=== PATIENT | male | born 1960 | race Caucasian/White ===

== ENCOUNTER 2019-04-22 08:09 | Outpatient (CLI) | payer MEDICARE, SELFPAY ==
[2019-04-22 08:46] LABS: Alanine Aminotransferase 29 U/L (0-41); Albumin Level 3.9 g/dL (3.5-5.2); Alkaline Phosphatase 140 IU/L (40-130); Anion Gap 16.4 (5-19); Aspartate Amino Transferase 18 U/L (0-40); Blood Urea Nitrogen 20 mg/dL (6-20); Calcium 9.3 mg/Dl (8.6-10.0); Carbon Dioxide 26 mmol/L (22-29); Chloride 98 mmol/L (98-107); Chol HDL Ratio 6.25 mg/dL (1.0-5.00); Cholesterol 200 mg/dL (0-200); Globulin 3.6 g/dL (1.3-4.6); Glomerular Filtration Rate 47.9 mL/min (90-130); Glucose 238 mg/dL (74-109); HDL Cholesterol 32 mg/dL (60-100); Potassium 4.4 mmol/L (3.5-5.1); Sodium 136 mmol/L (136-145); Total Bilirubin 0.5 mg/dL (0.15-1.2); Total Protein 7.5 g/dL (6.6-8.7); Triglycerides 655 mg/dL (0-150)
[2019-04-22 09:39] LABS: LDL Cholesterol Direct 89 mg/dL (0-100)
[2019-04-22 09:41] LABS: Estmated Average Glucose 249; Hemoglobin A1C 10.3 % (4.0-6.0)
[2019-04-22 11:14] LABS: Albumin Level 4.2 g/dL (3.5-5.2); Anion Gap 16.4 (5-19); Blood Urea Nitrogen 23 mg/dL (6-20); Calcium 9.5 mg/Dl (8.6-10.0); Carbon Dioxide 26 mmol/L (22-29); Chloride 98 mmol/L (98-107); Glucose 227 mg/dL (74-109); Phosphorus 1.8 mg/dL (2.5-4.5); Potassium 4.4 mmol/L (3.5-5.1); Sodium 136 mmol/L (136-145)
[2019-04-22 11:21] LABS: Calcium 9.5 mg/dL (8.8-10.2); Parathyroid Hormone 122.3 pg/mL (15-65)
[2019-04-22 12:13] LABS: Basophils # 0.1 10^3/uL (0.0-0.1); Basophils % 0.8 %; Eosinophils # 0.3 10^3/uL (0.0-0.8); Eosinophils % 4.1 %; Hematocrit 43.4 % (42.0-52.0); Hemoglobin 14.2 g/dL (11.7-16.6); Lymphocytes % 27.5 %; Mean Corpuscular HGB Conc 32.7 g/dL (30.0-36.0); Mean Corpuscular Hemoglobin 26.8 pg (28.0-34.0); Mean Corpuscular Volume 81.9 fL (80-94); Mean Platelet Volume 11.7 fL (7.4-10.4); Monocytes # 0.9 10^3/uL (0.2-0.9); Monocytes % 12.2 %; Nucleated Red Blood Cells % 0 %; Platelet Count 203 10^3/cmm (130-400); Red Cell Distribution Width 13.1 % (12.1-15.1); White Blood Count 7.3 10^3/uL (4.0-10.0)
[2019-04-22 17:03] LABS: Urine Creatinine 73 mg/dL (39-259); Urine Protein Random 10 mg/dL
[2019-04-22 17:08] LABS: UPRO/UCREAT Ratio 0.14 mg/mg CR
== END 2019-04-22 08:10 | disposition home or self-care (01) ==
LOC: LAB 08:12
PROVIDERS: Family Provider Nurse Practitioner Family; PCP Nurse Practitioner Family; Visit Provider Family Medicine
DX: N18.3 Chronic kidney disease, stage 3 (moderate) (principal); E11.40 Type 2 diabetes mellitus with diabetic neuropathy, unspecified; Z79.4 Long term (current) use of insulin; I10 Essential (primary) hypertension
CPT/HCPCS: 80053; 80061; 80069; 82310; 82570; 83036; 83721; 83970; 84156; 85025

== ENCOUNTER → 2019-10-10 10:13 | Outpatient (BNVA) | payer MEDICARE, SELFPAY | PROVIDERS: Family Provider Nurse Practitioner Family; PCP Family Medicine; Visit Provider Internal Medicine Nephrology | DX: N18.3 Chronic kidney disease, stage 3 (moderate) (principal); E11.9 Type 2 diabetes mellitus without complications | CPT/HCPCS: 80053; 80061; 82044; 82310; 83036; 83721; 83970; 84100; 85025 ==

== ENCOUNTER → 2020-02-12 14:38 | Outpatient (BNVA) | payer MEDICARE, SELFPAY | PROVIDERS: Family Provider Nurse Practitioner Family; PCP Family Medicine; Visit Provider Family Medicine | DX: E11.9 Type 2 diabetes mellitus without complications (principal) | CPT/HCPCS: 80053; 80061; 83036; 83721 ==

== ENCOUNTER 2020-03-06 12:57 | Inpatient (IN) | payer MEDICARE, SELFPAY ==
[2020-03-06] VITALS (15 sets, daily range): BP systolic 119–131; BP diastolic 65–82; PULSE 100–114; RESP 14–38; TEMP 37.1; O2SAT 88–95; BMI 31.7
--- NOTE | 2020-03-06 13:11 | W.ED.COVID ---
Documented by User: RADHA Garzon 03/06/20 16:12 HPI - COVID General: Chief Complaint: COVID symptoms Stated Complaint: COVID SYMPTOMS Time Seen by Provider: 03/06/20 13:11 Source: patient Mode of arrival: ambulatory Limitations: no limitations Triage information: No fever, cough or shortness of breath. Exposure to COVID + person last 14 days History of Present Illness: HPI Narrative: 60-year-old male patient comes in today with complaints of malaise, poor appetite, and occasional cough. Patient also reports some nausea. Patient has a history of diabetes and COVID-19 exposure. Patient denies any chest pain. Patient reports just does not feel well. Patient was referred from primary health clinic for concerns of dehydration and possible COVID-19. 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 GERD (gastroesophageal reflux disease) History of MRSA infection History of renal carcinoma Hyperlipidemia Hypertension Surgical History History of nephrectomy (~08/2008) -secondary to RCC Family History Father Chronic kidney disease (CKD) father from ESRD Mother Liver disease Social History Smoking and tobacco status: never smoked Alcohol intake: never Marital status: Current gender identity: Male Physical Exam Const: COMMON NORMALS: no acute distress and patient oriented x3 GENERAL APPEARANCE: cooperative HENMT: COMMON NORMALS: normocephalic and Normal external nose present HEAD & SCALP: normal to inspection and normocephalic NOSE: Normal external nose present MOUTH: moist mucous membranes abnormal (Dry) Details: parched THROAT: posterior oropharynx normal Eye: GENERAL EYE: appearance normal, both eyes and all related structures Neck/C-Spine: COMMON NORMALS: full ROM Lymph: LYMPHATIC: no lymphadenopathy noted Chest: COMMONS NORMALS: normal inspection of the chest Resp: COMMON NORMALS: normal respiratory effort EFFORT & INSPECTION: Yes able to speak in complete sentences Cardio: COMMON NORMALS: regular rate and regular rhythm RATE: regular rate RHYTHM: regular rhythm GI: COMMON NORMALS: non-tender : COMMON NORMALS: Yes no CVA tenderness BLADDER/KIDNEY EXAM: Yes no CVA tenderness Back/Pelvis: COMMON NORMALS: no CVA tenderness Extremity: COMMON NORMALS: normal to inspection Neuro: COMMON NORMALS: patient oriented x3 and moves all extremities Psych: COMMON NORMALS: mental status grossly normal and cooperative Skin: COMMON NORMALS: no rashes or lesions noted GENERAL SKIN EXAM: no rashes or lesions noted Course ED course: 1600, reviewed with Dr. Monk, he recommended starting patient on insulin drip and admit to ICU for further treatment. [email or web address] Vital Signs: Vital signs: Vital Signs Temperature 98.4 F 03/07/20 08:00 Pulse Rate 107 H 03/07/20 08:00 Respiratory Rate 28 H 03/07/20 08:00 Blood Pressure 140/85 03/07/20 08:00 Pulse Oximetry 91 03/07/20 08:00 MDM - COVID MDM Narrative: Medical decision making narrative: 60-year-old male comes in today with malaise symptoms. Patient reports for the last 5 days he has felt unwell. Patient reports exposure to COVID-19 and was concerned he may have the virus. On exam oral mucosa is dry. Respirations were even. Lungs were clear to auscultation. Skin was warm and dry. Differential diagnosis includes but not limited to COVID-19 viral syndrome, dehydration, diabetic ketoacidosis, gastroenteritis. Laboratory values noted a blood sugar glucose of 969. I asked patient about whether or not he had been using his insulin as directed he said no he had stopped it when he started feeling bad. I asked patient what his blood sugars were running and he says he never checks it. Remainder of labs noted a sodium of 122, potassium of 5.5, serum ketones positive. I reviewed this with Dr. Monk and he recommended starting an insulin drip and admitting to the ICU for diabetic ketoacidosis. Reviewed with patient who agreed to plan. Dr. Monk went to see patient for admission to ICU for monitoring of glucose and further treatment. Lab Data: Labs: Lab Results 03/06/20 03/06/20 03/06/20 Range/Units 13:45 13:49 13:49 WBC 7.3 (4.0-10.0) 10^3/ uL RBC 5.10 (4.1-5.3) 10^6/u L Hgb 13.6 (11.7-16.6) g/dL Hct 41.6 L (42.0-52.0) % MCV 81.6 (80-94) fL MCH 26.7 L (28.0-34.0) pg MCHC 32.7 (30.0-36.0) g/dL RDW 14.3 (12.1-15.1) % Plt Count 159 (130-400) 10^3/c mm MPV 11.0 H (7.4-10.4) fL Neut % (Auto) 72.1 % Lymph % (Auto) 17.6 % [place] % (Auto) 9.7 % Eos % (Auto) 0.0 % Baso % (Auto) 0.3 % Neut # (Auto) 5.26 (1.8-7.7) 10^3/u L Lymph # (Auto) 1.3 (0.8-4.8) 10^3/u L [place] # (Auto) 0.7 (0.2-0.9) 10^3/u L Eos # (Auto) 0.0 (0.0-0.8) 10^3/u L Baso # (Auto) 0.0 (0.0-0.1) 10^3/u L Nucleated RBC % (a uto) 0 % Nucleated RBCs # 0.0 /100WBC Specimen Type Sample Site ABG pH (7.35-7.45) ABG pCO2 (35-45) mmHg ABG pO2 (80.0-100.0) mmH g ABG HCO3 (22-26) mmol/L ABG O2 Saturation ABG Base Excess (-2.0-2.0) mmol/ L Lacho Test A-a O2 Gradient (5-10) mmHg Hematocrit (42-52) % Hgb O2 Saturation (95-100) % Carboxyhemoglobin (0.4-20.1) %THgb Methemoglobin (0.4-1.5) % Total Hemoglobin (14-18) g/dL Ionized Calcium (1.1-1.4) mmol/L O2 Delivery Device FiO2 % Industrial Sociologist ID Sodium 122 L (136-145) mmol/L Potassium 5.5 H (3.5-5.1) mmol/L Chloride 85 L (98-107) mmol/L Carbon Dioxide 19 L (22-29) mmol/L Anion Gap 23.5 H (5-19) BUN 44 H (8-23) mg/dL Creatinine 2.1 H (0.7-1.2) mg/dL GFR Calculation 32.4 L (90-130) mL/min Glucose 969 H* (65-115) mg/dL POC Glucose (70-110) mg/dL Calculated Osmolal ity 314 H (285-295) mOsm/k g Calcium 8.9 (8.5-10.5) mg/dL Total Bilirubin 0.7 (0.15-1.2) mg/dL AST 21 (0-40) U/L ALT 25 (0-41) U/L Alkaline Phosphata se 177 H (40-130) IU/L C-Reactive Protein 46.7 H (0.0-4.9) mg/L Total Protein 7.4 (6.6-8.7) g/dL Albumin 4.1 (3.5-5.2) g/dL Globulin 3.3 (1.3-4.6) g/dL Urine Color (Yellow) Urine Appearance (CLEAR) Urine pH (5-7) Ur Specific Gravit y (1.005-1.030) Urine Protein (Negative) Urine Glucose (UA) (Normal) Urine Ketones (Negative) Urine Blood (Negative) Urine Nitrate (Negative) Urine Bilirubin (Negative) Urine Urobilinogen (Negative) mg/dL Ur Leukocyte Michell ase (Negative) Urine RBC (0-2) /hpf Urine WBC (0-5) /hpf Ur Squamous Epith Cells (0-5) /hpf Amorphous Sediment Urine Bacteria (NONE) /hpf Serum Ketones Positive H (Negative) SARS-CoV-2 Ag (Rap id) (Negative) 03/06/20 03/06/2003/06/20 Range/Units 13:49 13:56 16:03 WBC (4.0-10.0) 10^3/ uL RBC (4.1-5.3) 10^6/u L Hgb (11.7-16.6) g/dL Hct (42.0-52.0) % MCV (80-94) fL MCH (28.0-34.0) pg MCHC (30.0-36.0) g/dL RDW (12.1-15.1) % Plt Count (130-400) 10^3/c mm MPV (7.4-10.4) fL Neut % (Auto) % Lymph % (Auto) % [place] % (Auto) % Eos % (Auto) % Baso % (Auto) % Neut # (Auto) (1.8-7.7) 10^3/u L Lymph # (Auto) (0.8-4.8) 10^3/u L [place] # (Auto) (0.2-0.9) 10^3/u L Eos # (Auto) (0.0-0.8) 10^3/u L Baso # (Auto) (0.0-0.1) 10^3/u L Nucleated RBC % (a uto) % Nucleated RBCs # /100WBC Specimen Type Sample Site ABG pH (7.35-7.45) ABG pCO2 (35-45) mmHg ABG pO2 (80.0-100.0) mmH g ABG HCO3 (22-26) mmol/L ABG O2 Saturation ABG Base Excess (-2.0-2.0) mmol/ L Lacho Test A-a O2 Gradient (5-10) mmHg Hematocrit (42-52) % Hgb O2 Saturation (95-100) % Carboxyhemoglobin (0.4-20.1) %THgb Methemoglobin (0.4-1.5) % Total Hemoglobin (14-18) g/dL Ionized Calcium (1.1-1.4) mmol/L O2 Delivery Device FiO2 % Industrial Sociologist ID Sodium (136-145) mmol/L Potassium (3.5-5.1) mmol/L Chloride (98-107) mmol/L Carbon Dioxide (22-29) mmol/L Anion Gap (5-19) BUN (8-23) mg/dL Creatinine (0.7-1.2) mg/dL GFR Calculation (90-130) mL/min Glucose (65-115) mg/dL POC Glucose > 600 (70-110) mg/dL Calculated Osmolal ity (285-295) mOsm/k g Calcium (8.5-10.5) mg/dL Total Bilirubin (0.15-1.2) mg/dL AST (0-40) U/L ALT (0-41) U/L Alkaline Phosphata se (40-130) IU/L C-Reactive Protein (0.0-4.9) mg/L Total Protein (6.6-8.7) g/dL Albumin (3.5-5.2) g/dL Globulin (1.3-4.6) g/dL Urine Color Straw (Yellow) Urine Appearance Clear (CLEAR) Urine pH 5 (5-7) Ur Specific Gravit y 1.010 (1.005-1.030) Urine Protein Trace (Negative) Urine Glucose (UA) 4+ H (Normal) Urine Ketones 1+ H (Negative) Urine Blood Neg (Negative) Urine Nitrate Negative (Negative) Urine Bilirubin Neg (Negative) Urine Urobilinogen Norm (Negative) mg/dL Ur Leukocyte Michell ase Negative (Negative) Urine RBC None (0-2) /hpf Urine WBC None (0-5) /hpf Ur Squamous Epith Cells 0-4 H (0-5) /hpf Amorphous Sediment Not Reportable Urine Bacteria Trace (NONE) /hpf Serum Ketones (Negative) SARS-CoV-2 Ag (Rap id) Negative (Negative) 03/06/20 Range/Units 16:22 WBC (4.0-10.0) 10^3/ uL RBC (4.1-5.3) 10^6/u L Hgb (11.7-16.6) g/dL Hct (42.0-52.0) % MCV (80-94) fL MCH (28.0-34.0) pg MCHC (30.0-36.0) g/dL RDW (12.1-15.1) % Plt Count (130-400) 10^3/c mm MPV (7.4-10.4) fL Neut % (Auto) % Lymph % (Auto) % [place] % (Auto) % Eos % (Auto) % Baso % (Auto) % Neut # (Auto) (1.8-7.7) 10^3/u L Lymph # (Auto) (0.8-4.8) 10^3/u L [place] # (Auto) (0.2-0.9) 10^3/u L Eos # (Auto) (0.0-0.8) 10^3/u L Baso # (Auto) (0.0-0.1) 10^3/u L Nucleated RBC % (a uto) % Nucleated RBCs # /100WBC Specimen Type Arterial Sample Site Radial, right ABG pH 7.33 L (7.35-7.45) ABG pCO2 36.4 (35-45) mmHg ABG pO2 69.7 L (80.0-100.0) mmH g ABG HCO3 19.0 L (22-26) mmol/L ABG O2 Saturation 94.6 ABG Base Excess -6.3 L (-2.0-2.0) mmol/ L Lacho Test Pos A-a O2 Gradient 4.5 L (5-10) mmHg Hematocrit 41.6 L (42-52) % Hgb O2 Saturation 92.9 L (95-100) % Carboxyhemoglobin 1.2 (0.4-20.1) %THgb Methemoglobin 0.6 (0.4-1.5) % Total Hemoglobin 13.6 L (14-18) g/dL Ionized Calcium 1.1 (1.1-1.4) mmol/L O2 Delivery Device Room air FiO2 21.0 % Industrial Sociologist ID Jlg Sodium 130.0 L (136-145) mmol/L Potassium 4.6 (3.5-5.1) mmol/L Chloride (98-107) mmol/L Carbon Dioxide (22-29) mmol/L Anion Gap (5-19) BUN (8-23) mg/dL Creatinine (0.7-1.2) mg/dL GFR Calculation (90-130) mL/min Glucose 586.0 H (65-115) mg/dL POC Glucose (70-110) mg/dL Calculated Osmolal ity (285-295) mOsm/k g Calcium (8.5-10.5) mg/dL Total Bilirubin (0.15-1.2) mg/dL AST (0-40) U/L ALT (0-41) U/L Alkaline Phosphata se (40-130) IU/L C-Reactive Protein (0.0-4.9) mg/L Total Protein (6.6-8.7) g/dL Albumin (3.5-5.2) g/dL Globulin (1.3-4.6) g/dL Urine Color (Yellow) Urine Appearance (CLEAR) Urine pH (5-7) Ur Specific Gravit y (1.005-1.030) Urine Protein (Negative) Urine Glucose (UA) (Normal) Urine Ketones (Negative) Urine Blood (Negative) Urine Nitrate (Negative) Urine Bilirubin (Negative) Urine Urobilinogen (Negative) mg/dL Ur Leukocyte Michell ase (Negative) Urine RBC (0-2) /hpf Urine WBC (0-5) /hpf Ur Squamous Epith Cells (0-5) /hpf Amorphous Sediment Urine Bacteria (NONE) /hpf Serum Ketones (Negative) SARS-CoV-2 Ag (Rap id) (Negative) COVID Results: SARS-CoV-2 Antigen (Rapid) Negative (Negative) 03/06/20 13:49 03/06/20 SARS-CoV-2 RNA (RT-PCR) Pending 03/06/20 12:14 03/06/20 Discharge Plan Discharge Patient Disposition: Admitted As Inpatient Admit Provider: Bette Person Clinical Impression: DKA (diabetic ketoacidoses) Qualifiers: Diabetes mellitus type: type 2 Diabetes mellitus complication detail: without coma Qualified Code(s): E11.10 - Type 2 diabetes mellitus with ketoacidosis without coma Condition: Stable Discharge Diet: Advance as tolerated and Diabetic Discharge Activity: Increase activity as tolerated Coding Level of Care Code ED Superintendent Drivers for g Fwd Exam Comprehensive Documented by User: Sandip Monk DO 03/07/20 09:03 HPI - COVID General: Chief Complaint: COVID symptoms Stated Complaint: COVID SYMPTOMS Time Seen by Provider: 03/06/20 13:11 History of Present Illness: HPI Narrative: 6-year-old male. Patient initially seen by SD kei low due to need for admission. Patient has been not taking insulin for the last 4 to 5 days. Polyphagia polydipsia polyuria generalized muscle aches cough and some shortness of breath. COVID 19 common symptoms: positive non-productive cough, dyspnea, fatigue and body aches; negative fever(s), chills, productive cough, throat pain, nasal congestion, nausea, vomiting or diarrhea COVID 19 other sytmptoms: negative chest pain COVID Results: SARS-CoV-2 Antigen (Rapid) Negative (Negative) 03/06/20 13:49 03/06/20 SARS-CoV-2 RNA (RT-PCR) Pending 03/06/20 12:14 03/06/20 Review of Systems Const: Reports: body aches, fatigue and malaise; Denies: fever(s), chills or change in appetite ENMT: Denies: throat pain, ear or mastoid pain, nasal discharge or nasal congestion Card: Denies: chest pain, edema, dyspnea on exertion or orthopnea Resp: Reports: dyspnea and non-productive cough; Denies: productive cough GI: Denies: abdominal pain, nausea, vomiting, hematemesis, coffee ground emesis, diarrhea, constipation, bloating, hematochezia or melena : Denies: flank pain, dysuria, urinary frequency or urinary urgency Skin/Breast: Denies: rash or pruritus PFSH ED PFSH: Medical History 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 GERD (gastroesophageal reflux disease) History of MRSA infection History of renal carcinoma Hyperlipidemia Hypertension Surgical History History of nephrectomy (~08/2008) -secondary to RCC Family History Father Chronic kidney disease (CKD) father from ESRD Mother Liver disease Social History Smoking and tobacco status: never smoked Alcohol intake: never Marital status: Current gender identity: Male Physical Exam Const: COMMON NORMALS: no acute distress GENERAL APPEARANCE: cooperative and comfortable ORIENTATION/CONSCIOUSNESS: Yes awake, Yes oriented to person, Yes oriented to place and Yes oriented to time Neck/C-Spine: COMMON NORMALS: no JVD Resp: COMMON NORMALS: normal respiratory effort, No retractions, No use of accessory muscles and clear to auscultation bilaterally AUSCULTATION: clear to auscultation bilaterally Cardio: COMMON NORMALS: no JVD, regular rhythm and No murmurs present (Cardio) RATE: tachycardic RHYTHM: regular rhythm GI: COMMON NORMALS: Soft to palpation and No hepatosplenomegaly present AUSCULTATION: Yes normoactive bowel sounds PALPATION: Yes Soft to palpation, No Tenderness to palpation present (GI), No Guarding due to palpation present (GI) and Yes No hepatosplenomegaly present Extremity: COMMON NORMALS: normal to inspection, capillary refill normal, no clubbing, cyanosis or edema, no calf tenderness and no pedal edema Neuro: SENSORIUM/ORIENTATION: Yes oriented to person, Yes oriented to place and Yes oriented to time Skin: COMMON NORMALS: no rashes or lesions noted GENERAL SKIN EXAM: no rashes or lesions noted Course Vital Signs: Vital signs: Vital Signs Temperature 98.4 F 03/07/20 08:00 Pulse Rate 107 H 03/07/20 08:00 Respiratory Rate 28 H 03/07/20 08:00 Blood Pressure 140/85 03/07/20 08:00 Pulse Oximetry 91 03/07/20 08:00 MDM - COVID MDM Narrative: Medical decision making narrative: Patient initially seen by PA. Case signed over to myself. Exam for the most part is unremarkable other than he is a little bit tachycardic. Reviewing labs he is in DKA will admit for DKA orders written to the ICU insulin drip is been started talked Dr. Person she will be attending. Lab Data: Labs: Lab Results 03/06/20 03/06/20 03/06/20 Range/Units 13:45 13:49 13:49 WBC 7.3 (4.0-10.0) 10^3/ uL RBC 5.10 (4.1-5.3) 10^6/u L Hgb 13.6 (11.7-16.6) g/dL Hct 41.6 L (42.0-52.0) % MCV 81.6 (80-94) fL MCH 26.7 L (28.0-34.0) pg MCHC 32.7 (30.0-36.0) g/dL RDW 14.3 (12.1-15.1) % Plt Count 159 (130-400) 10^3/c mm MPV 11.0 H (7.4-10.4) fL Neut % (Auto) 72.1 % Lymph % (Auto) 17.6 % [place] % (Auto) 9.7 % Eos % (Auto) 0.0 % Baso % (Auto) 0.3 % Neut # (Auto) 5.26 (1.8-7.7) 10^3/u L Lymph # (Auto) 1.3 (0.8-4.8) 10^3/u L [place] # (Auto) 0.7 (0.2-0.9) 10^3/u L Eos # (Auto) 0.0 (0.0-0.8) 10^3/u L Baso # (Auto) 0.0 (0.0-0.1) 10^3/u L Nucleated RBC % (a uto) 0 % Nucleated RBCs # 0.0 /100WBC Specimen Type Sample Site ABG pH (7.35-7.45) ABG pCO2 (35-45) mmHg ABG pO2 (80.0-100.0) mmH g ABG HCO3 (22-26) mmol/L ABG O2 Saturation ABG Base Excess (-2.0-2.0) mmol/ L Lacho Test A-a O2 Gradient (5-10) mmHg Hematocrit (42-52) % Hgb O2 Saturation (95-100) % Carboxyhemoglobin (0.4-20.1) %THgb Methemoglobin (0.4-1.5) % Total Hemoglobin (14-18) g/dL Ionized Calcium (1.1-1.4) mmol/L O2 Delivery Device FiO2 % Industrial Sociologist ID Sodium 122 L (136-145) mmol/L Potassium 5.5 H (3.5-5.1) mmol/L Chloride 85 L (98-107) mmol/L Carbon Dioxide 19 L (22-29) mmol/L Anion Gap 23.5 H (5-19) BUN 44 H (8-23) mg/dL Creatinine 2.1 H (0.7-1.2) mg/dL GFR Calculation 32.4 L (90-130) mL/min Glucose 969 H* (65-115) mg/dL POC Glucose (70-110) mg/dL Calculated Osmolal ity 314 H (285-295) mOsm/k g Calcium 8.9 (8.5-10.5) mg/dL Total Bilirubin 0.7 (0.15-1.2) mg/dL AST 21 (0-40) U/L ALT 25 (0-41) U/L Alkaline Phosphata se 177 H (40-130) IU/L C-Reactive Protein 46.7 H (0.0-4.9) mg/L Total Protein 7.4 (6.6-8.7) g/dL Albumin 4.1 (3.5-5.2) g/dL Globulin 3.3 (1.3-4.6) g/dL Urine Color (Yellow) Urine Appearance (CLEAR) Urine pH (5-7) Ur Specific Gravit y (1.005-1.030) Urine Protein (Negative) Urine Glucose (UA) (Normal) Urine Ketones (Negative) Urine Blood (Negative) Urine Nitrate (Negative) Urine Bilirubin (Negative) Urine Urobilinogen (Negative) mg/dL Ur Leukocyte Michell ase (Negative) Urine RBC (0-2) /hpf Urine WBC (0-5) /hpf Ur Squamous Epith Cells (0-5) /hpf Amorphous Sediment Urine Bacteria (NONE) /hpf Serum Ketones Positive H (Negative) SARS-CoV-2 Ag (Rap id) (Negative) 03/06/20 03/06/20 03/06/20 Range/Units 13:49 13:56 16:03 WBC (4.0-10.0) 10^3/ uL RBC (4.1-5.3) 10^6/u L Hgb (11.7-16.6) g/dL Hct (42.0-52.0) % MCV (80-94) fL MCH (28.0-34.0) pg MCHC (30.0-36.0) g/dL RDW (12.1-15.1) % Plt Count (130-400) 10^3/c mm MPV (7.4-10.4) fL Neut % (Auto) % Lymph % (Auto) % [place] % (Auto) % Eos % (Auto) % Baso % (Auto) % Neut # (Auto) (1.8-7.7) 10^3/u L Lymph # (Auto) (0.8-4.8) 10^3/u L [place] # (Auto) (0.2-0.9) 10^3/u L Eos # (Auto) (0.0-0.8) 10^3/u L Baso # (Auto) (0.0-0.1) 10^3/u L Nucleated RBC % (a uto) % Nucleated RBCs # /100WBC Specimen Type Sample Site ABG pH (7.35-7.45) ABG pCO2 (35-45) mmHg ABG pO2 (80.0-100.0) mmH g ABG HCO3 (22-26) mmol/L ABG O2 Saturation ABG Base Excess (-2.0-2.0) mmol/ L Lacho Test A-a O2 Gradient (5-10) mmHg Hematocrit (42-52) % Hgb O2 Saturation (95-100) % Carboxyhemoglobin (0.4-20.1) %THgb Methemoglobin (0.4-1.5) % Total Hemoglobin (14-18) g/dL Ionized Calcium (1.1-1.4) mmol/L O2 Delivery Device FiO2 % Industrial Sociologist ID Sodium (136-145) mmol/L Potassium (3.5-5.1) mmol/L Chloride (98-107) mmol/L Carbon Dioxide (22-29) mmol/L Anion Gap (5-19) BUN (8-23) mg/dL Creatinine (0.7-1.2) mg/dL GFR Calculation (90-130) mL/min Glucose (65-115) mg/dL POC Glucose > 600 (70-110) mg/dL Calculated Osmolal ity (285-295) mOsm/k g Calcium (8.5-10.5) mg/dL Total Bilirubin (0.15-1.2) mg/dL AST (0-40) U/L ALT (0-41) U/L Alkaline Phosphata se (40-130) IU/L C-Reactive Protein (0.0-4.9) mg/L Total Protein (6.6-8.7) g/dL Albumin (3.5-5.2) g/dL Globulin (1.3-4.6) g/dL Urine Color Straw (Yellow) Urine Appearance Clear (CLEAR) Urine pH 5 (5-7) Ur Specific Gravit y 1.010 (1.005-1.030) Urine Protein Trace (Negative) Urine Glucose (UA) 4+ H (Normal) Urine Ketones 1+ H (Negative) Urine Blood Neg (Negative) Urine Nitrate Negative (Negative) Urine Bilirubin Neg (Negative) Urine Urobilinogen Norm (Negative) mg/dL Ur Leukocyte Michell ase Negative (Negative) Urine RBC None (0-2) /hpf Urine WBC None (0-5) /hpf Ur Squamous Epith Cells 0-4 H (0-5) /hpf Amorphous Sediment Not Reportable Urine Bacteria Trace (NONE) /hpf Serum Ketones (Negative) SARS-CoV-2 Ag (Rap id) Negative (Negative) 03/06/20 Range/Units 16:22 WBC (4.0-10.0) 10^3/ uL RBC (4.1-5.3) 10^6/u L Hgb (11.7-16.6) g/dL Hct (42.0-52.0) % MCV (80-94) fL MCH (28.0-34.0) pg MCHC (30.0-36.0) g/dL RDW (12.1-15.1) % Plt Count (130-400) 10^3/c mm MPV (7.4-10.4) fL Neut % (Auto) % Lymph % (Auto) % [place] % (Auto) % Eos % (Auto) % Baso % (Auto) % Neut # (Auto) (1.8-7.7) 10^3/u L Lymph # (Auto) (0.8-4.8) 10^3/u L [place] # (Auto) (0.2-0.9) 10^3/u L Eos # (Auto) (0.0-0.8) 10^3/u L Baso # (Auto) (0.0-0.1) 10^3/u L Nucleated RBC % (a uto) % Nucleated RBCs # /100WBC Specimen Type Arterial Sample Site Radial, right ABG pH 7.33 L (7.35-7.45) ABG pCO2 36.4 (35-45) mmHg ABG pO2 69.7 L (80.0-100.0) mmH g ABG HCO3 19.0 L (22-26) mmol/L ABG O2 Saturation 94.6 ABG Base Excess -6.3 L (-2.0-2.0) mmol/ L Lacho Test Pos A-a O2 Gradient 4.5 L (5-10) mmHg Hematocrit 41.6 L (42-52) % Hgb O2 Saturation 92.9 L (95-100) % Carboxyhemoglobin 1.2 (0.4-20.1) %THgb Methemoglobin 0.6 (0.4-1.5) % Total Hemoglobin 13.6 L (14-18) g/dL Ionized Calcium 1.1 (1.1-1.4) mmol/L O2 Delivery Device Room air FiO2 21.0 % Industrial Sociologist ID Jlg Sodium 130.0 L (136-145) mmol/L Potassium 4.6 (3.5-5.1) mmol/L Chloride (98-107) mmol/L Carbon Dioxide (22-29) mmol/L Anion Gap (5-19) BUN (8-23) mg/dL Creatinine (0.7-1.2) mg/dL GFR Calculation (90-130) mL/min Glucose 586.0 H (65-115) mg/dL POC Glucose (70-110) mg/dL Calculated Osmolal ity (285-295) mOsm/k g Calcium (8.5-10.5) mg/dL Total Bilirubin (0.15-1.2) mg/dL AST (0-40) U/L ALT (0-41) U/L Alkaline Phosphata se (40-130) IU/L C-Reactive Protein (0.0-4.9) mg/L Total Protein (6.6-8.7) g/dL Albumin (3.5-5.2) g/dL Globulin (1.3-4.6) g/dL Urine Color (Yellow) Urine Appearance (CLEAR) Urine pH (5-7) Ur Specific Gravit y (1.005-1.030) Urine Protein (Negative) Urine Glucose (UA) (Normal) Urine Ketones (Negative) Urine Blood (Negative) Urine Nitrate (Negative) Urine Bilirubin (Negative) Urine Urobilinogen (Negative) mg/dL Ur Leukocyte Michell ase (Negative) Urine RBC (0-2) /hpf Urine WBC (0-5) /hpf Ur Squamous Epith Cells (0-5) /hpf Amorphous Sediment Urine Bacteria (NONE) /hpf Serum Ketones (Negative) SARS-CoV-2 Ag (Rap id) (Negative) COVID Results: SARS-CoV-2 Antigen (Rapid) Negative (Negative) 03/06/20 13:49 03/06/20 SARS-CoV-2 RNA (RT-PCR) Pending 03/06/20 12:14 03/06/20 Discharge Plan Discharge Patient Disposition: Admitted As Inpatient Admit Provider: Bette Person Clinical Impression: DKA (diabetic ketoacidoses) Qualifiers: Diabetes mellitus type: type 2 Diabetes mellitus complication detail: without coma Qualified Code(s): E11.10 - Type 2 diabetes mellitus with ketoacidosis without coma Condition: Stable Discharge Diet: Advance as tolerated and Diabetic Discharge Activity: Increase activity as tolerated Coding Level of Care Code ED Superintendent Drivers for g Fwd Exam Comprehensive
[2020-03-06 14:06] LABS: Basophils % 0.3 %; Hematocrit 41.6 % (42.0-52.0); Hemoglobin 13.6 g/dL (11.7-16.6); Lymphocytes # 1.3 10^3/uL (0.8-4.8); Lymphocytes % 17.6 %; Mean Corpuscular HGB Conc 32.7 g/dL (30.0-36.0); Mean Corpuscular Hemoglobin 26.7 pg (28.0-34.0); Mean Corpuscular Volume 81.6 fL (80-94); Monocytes # 0.7 10^3/uL (0.2-0.9); Monocytes % 9.7 %; Neutrophils # 5.26 10^3/uL (1.8-7.7); Neutrophils % 72.1 %; Nucleated Red Blood Cells % 0 %; Platelet Count 159 10^3/cmm (130-400); Red Cell Distribution Width 14.3 % (12.1-15.1); White Blood Count 7.3 10^3/uL (4.0-10.0)
[2020-03-06 14:09] LABS: Add Urine Microscopic? YES; Bilirubin Urine Neg (Negative); Blood Urine Neg (Negative); Glucose Urine UA 4+ (Normal); Ketones Urine 1+ (Negative); Leukocyte Esterase Urine Negative (Negative); Nitrate Urine Negative (Negative); Protein Urine Trace (Negative); Urine Appearance Clear (CLEAR); Urine Color Straw (Yellow); Urobilinogen Urine Norm (Negative); pH Urine 5 (5-7)
[2020-03-06 14:16] LABS: Alanine Aminotransferase 25 U/L (0-41); Albumin Level 4.1 g/dL (3.5-5.2); Alkaline Phosphatase 177 IU/L (40-130); Anion Gap 23.5 (5-19); Aspartate Amino Transferase 21 U/L (0-40); Blood Urea Nitrogen 44 mg/dL (8-23); C Reactive Protein 46.7 mg/L (0.0-4.9); Calcium 8.9 mg/dL (8.5-10.5); Carbon Dioxide 19 mmol/L (22-29); Chloride 85 mmol/L (98-107); Globulin 3.3 g/dL (1.3-4.6); Glomerular Filtration Rate 32.4 mL/min (90-130); Potassium 5.5 mmol/L (3.5-5.1); Sodium 122 mmol/L (136-145); Total Bilirubin 0.7 mg/dL (0.15-1.2); Total Protein 7.4 g/dL (6.6-8.7)
[2020-03-06 14:18] LABS: Bacteria Urine TRACE /hpf; Squamous Epithelial Cell Urine 0-4 /hpf (0-5)
[2020-03-06 14:19] LABS: Add Urine Culture? No
[2020-03-06 14:26] LABS: Osmolality Calculated 314 mOsm/kg (285-295)
[2020-03-06 14:27] LABS: SARS Covid-2 Antigen Negative (Negative)
[2020-03-06 14:31] LABS: Glucose 969 mg/dL (65-115)
[2020-03-06] MEDS: sodium chloride 0.9% 1,000 ML 999 ML IV (14:54)
[2020-03-06 15:18] LABS: Ketone (Acetest) Serum Positive (Negative)
[2020-03-06 16:07] LABS: Glucose Point of Care > 600 mg/dL (70-110)
[2020-03-06 16:35] LABS: ABG PCO2 36.4 mmHg (35-45); ABG PH Result 7.33 (7.35-7.45); Alveolar-Arterial Oxygen Gradi 4.5 mmHg (5-10); Arterial Blood Gas Hematocrit 41.6 % (42-52); Base Excess ABG -6.3 mmol/L (-2.0-2.0); Blood Gas Allen Test Pos; Blood Gas Sample Site Radial, right; Blood Gas Sample Type Arterial; Carboxyhemoglobin 1.2 %THgb (0.4-20.1); HGB O2 Sat 92.9 % (95-100); Ionized Calcium Level - ABG 1.1 mmol/L (1.1-1.4); Methemoglobin 0.6 % (0.4-1.5); Oxygen Device ROOM AIR; Oxygen Saturation ABG 94.6; PO2 ABG 69.7 mmHg (80.0-100.0); Potassium Level - ABG 4.6 mmol/L (3.5-5.0); Total Hemoglobin 13.6 g/dL (14-18)
--- NOTE | 2020-03-06 16:50 | XRR_ITS ---
PROCEDURE INFORMATION: Exam: XR Chest, 1 View Exam date and time: 03/06/2020 4:53 PM Age: 60 years old Clinical indication: Cough; Additional info: Dyspnea/cough TECHNIQUE: Imaging protocol: XR of the chest Views: 1 view. COMPARISON: CR Chest 2 views* [id number] 06/01/2016 8:18 AM FINDINGS: Lungs: Mild nonspecific ground-glass infiltrates in both lungs. No consolidative pulmonary infiltrate noted. Pleural space: No pleural effusion. No pneumothorax. Heart/Mediastinum: No cardiomegaly. Bones/joints: Unremarkable. XR/XR chest 1V portable [id number] IMPRESSION: 1. Mild nonspecific ground-glass infiltrates in both lungs. This is new when compared to 06/01/2016. 2. No consolidative pulmonary infiltrate noted.
[2020-03-06] MEDS: insulin regular-human 250 UNIT in sodium chloride 0.9% 250 ML 15 UNIT IV (17:09)
[2020-03-06 17:50] LABS: Glucose Point of Care 515 mg/dL (70-110)
--- NOTE | 2020-03-06 17:50 | P.HP_ITS ---
Providers/Chief Complaint Admitting Physician: Bette Person MD Primary Care Provider: Soheila Castro MD Chief Complaint: COVID SYMPTOMS History of Present Illness Fredi Mccarthy is a 60 year old male with PMHx noted below presents accompanied by his from PCP clinic after having presented there with complaints of not feeling well since this past Monday (03/02). He reports poor appetite, poor oral intake particularly with respect to actual food, having alternating between w ater and soft drinks (Coke, Mountain Dew) as everything that he tries to eat tastes bland and makes his nauseous. He was recently exposed to a coworker who tested positive for COVID-19 so when his symptoms began he got suspicious that maybe he should get tested for the virus hence he presented to his primary care provider today. Since Monday he has not been taking his insulin as a result of poor oral intake. Does not typically check his blood sugar but seemed to be doing better in terms of controlling his blood sugar at some point his A1c had dropped to just above 7. Last A1c per review of medical record in February was 8.9. According to his medication reconciliation, he is on Levemir 75 units twice daily and NovoLog 30 units 3 times daily. Rapid COVID-19 test is negative, CBC is normal, sodium is 122, potassium is 5.5, it is 85, bicarb is 19, anion gap is 23.5, BUN is 44, creatinine is 2.1, blood glucose is 969, LFTs are normal, ABG shows some mild hypoxia with a pH of 7.33, urinalysis is positive for glucose and ketones, trace bacteria. Serum ketones are also positive. Chest x-ray is pending as well as blood cultures. PCR test was sent out for COVID-19 testing and is pending, will continue isolation precautions at this time. Patient's is present during my encounter in the ER, explained the detailed plan to both and they are agreeable. Insulin drip has just been started following 2 L normal saline bolus and 10 units of insulin. He will require ICU admission at this time due to need for frequent Accu-Cheks, continued insulin drip and aggressive IV fluid hydration. Review of Systems Narrative: -denies loss of taste or smell as these are chronic issues for him due to repeated nasal fractures during childhood Const: Reports: change in appetite (decreased appetite) and fatigue; Denies: fever(s) or chills Eyes: Denies: change in vision ENMT: Reports: dry mouth Card: Denies: chest pain, swelling of feet/ankles or lightheadedness Resp: Reports: non-productive cough; Denies: dyspnea or productive cough GI: Denies: abdominal pain, nausea, vomiting, hematemesis, diarrhea or hematochezia : Denies: hematuria Musc: Denies: back pain Skin/Breast: Denies: rash Neuro: Denies: numbness in extremities, weakness in extremities, difficulty walking or frequent falls Psych: Denies: anxiety Endo: Denies: polyuria or polydipsia Medications/Allergies Home Medications Medication Instructions Recorded Confirmed Last Taken Type aspirin 325 mg tablet 325 mg PO DAILY@04/30/19 03/06/20 03/05/20 History mdcuutrs-eqe-ybwxa acid 300 1 tab PO DAILY@04/30/19 03/06/20 03/06/20 History mcg-lycopene 600 mcg-lutein 300 mcg tablet insulin aspart U-100 100 unit/mL 30 unit SUBCUT TID #15 ml 12/20/19 03/06/20 Unknown Rx (3 mL) subcutaneous pen atorvastatin 80 mg PO DAILY@03/06/20 03/06/20 03/05/20 History fenofibrate 160 mg PO DAILY@03/06/20 03/06/20 03/05/20 History furosemide 20 mg PO DAILY@03/06/20 03/06/20 03/06/20 History insulin detemir U-100 [Levemir 75 unit SUBCUT BID@03/06/20 03/06/20 Unknown History U-100 Insulin] lisinopril 10 mg PO EVERY OTHER DAY@03/06/20 03/06/20 03/06/20 History omeprazole 20 mg PO DAILY@03/06/20 03/06/20 03/06/20 History Allergies Allergy/AdvReac Type Severity Reaction Status Date / Time Sulfa (Sulfonamide Allergy Unknown RASH Verified 06/05/19 10:40 Antibiotics) cephalexin Allergy Unknown Verified 06/05/19 10:40 clindamycin Allergy Unknown Verified 06/05/19 10:40 PFSH Acute PFSH: Medical History (Updated 03/06/20 @ 18:13 by Bette Person MD) 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 GERD (gastroesophageal reflux disease) History of MRSA infection History of renal carcinoma Hyperlipidemia Hypertension Surgical History (Updated 03/06/20 @ 18:02 by Bette Person MD) History of nephrectomy (~08/2008) -secondary to RCC Family History (Updated 03/06/20 @ 18:03 by Bette Person MD) Father Chronic kidney disease (CKD) father from ESRD Mother Liver disease Social History Smoking and tobacco status: never smoked Alcohol intake: never Marital status: Current gender identity: Male Vitals/I&O/Wt Last Vital Signs Temp 98.8 F 03/06/20 13:06 Pulse 114 H 03/06/20 13:06 Resp 18 03/06/20 13:06 BP 131/74 03/06/20 13:06 Pulse Ox 95 03/06/20 14:00 Weight last 48 hrs Weight 97.522 kg Physical Exam Const: COMMON NORMALS: no acute distress, patient oriented x3 and alert GENERAL APPEARANCE: cooperative and comfortable ORIENTATION/CONSCIOUSNESS: Yes awake OTHER: -looks younger than stated age HENMT: COMMON NORMALS: normocephalic, atraumatic, hearing grossly normal bilaterally and moist oral mucous membranes HEAD & SCALP: normocephalic and atraumatic Eye: COMMON NORMALS: Equal, round and reactive pupils present, EOMs intact bilaterally and conjunctivae normal CONJUNCTIVA: Yes conjunctivae normal PUPIL: Yes Equal, round and reactive pupils present Neck/C-Spine: COMMON NORMALS: full ROM GENERAL: Yes normal visual inspection and Yes trachea midline Resp: COMMON NORMALS: normal respiratory effort, No retractions, No use of accessory muscles and clear to auscultation bilaterally EFFORT & INSPECTION: Yes able to speak in complete sentences, Yes symmetric chest movement and No tachypneic AUSCULTATION: clear to auscultation bilaterally OTHER: -on RA Cardio: COMMON NORMALS: regular rhythm, S1 normal heart sound present, S2 normal heart sound present and No murmurs present (Cardio) RATE: tachycardic RHYTHM: regular rhythm HEART SOUNDS: S1 normal heart sound present and S2 normal heart sound present GI: COMMON NORMALS: Normal to inspection, nondistended, normoactive bowel sounds present, Soft to palpation and non-tender INSPECTION: Yes central obesity PALPATION: Yes Soft to palpation Extremity: COMMON NORMALS: normal to inspection, full ROM and no clubbing, cyanosis or edema; negative for no pedal edema Neuro: COMMON NORMALS: patient oriented x3, moves all extremities, no focal motor deficits and no sensory deficits noted Psych: COMMON NORMALS: mental status grossly normal, Normal thought process present, cooperative, normal affect and speech normal SPEECH: Yes normal speech THOUGHT PROCESS: Normal thought process present Skin: COMMON NORMALS: no rashes or lesions noted, no jaundice, no petechiae and no mottling GENERAL SKIN EXAM: no rashes or lesions noted Data : 03/06/20 13:49 03/06/20 13:49 A&P Assessment and plan (1) DKA (diabetic ketoacidoses): -Noted to have significant hyperglycemia with blood glucose greater than 900, ketonuria, glucosuria, positive serum ketones, elevated anion gap -Received 10 units of regular insulin and has been started on insulin drip -Accu-Cheks q. hourly -Aggressive IV fluid hydration, so far has received 2 L normal saline bolus, will continue NS @ 150 mL/hr -serial BMPs to monitor AG; once closed, will wean off insulin drip -hypoglycemia precautions particularly as oral intake as been poor -once BG consistently <250, will switch fluids to D5 with KCl to prevent hypoglycemia -noted pseudohyponatremia given significant hyperglycemia -noted K-5.5; anticipate normalization with insulin drip -last A1c-8.9 (02/2020) -no signs of infection at this time; UA with trace bacteria but asymptomatic; CXR and blood cx ordered; afebrile, no leukocytosis Status: Acute Qualifiers: Diabetes mellitus complication detail: without coma Diabetes mellitus type: type 2 Qualified Code(s): E11.10 - Type 2 diabetes mellitus with ketoacidosis without coma (2) Exposure to COVID-19 virus: -recent exposure to coworker who tested positive for COVID-19 -rapid test negative, PCR pending -isolation precautions Status: Acute (3) Hypertension: -monitor vital signs -resume oral antihypertensives -hold lasix, ACEi due to renal function and need for appropriate hydration Status: Chronic Qualifiers: Hypertension type: essential hypertension Qualified Code(s): I10 - Es sential (primary) hypertension (4) CKD stage 3 due to type 2 diabetes mellitus: -baseline Cr seems to be around 1.7-2.0; CKD stage 3b -continue to monitor renal function, avoid nephrotoxins, renally dose meds -monitor urine output Status: Chronic (5) GERD (gastroesophageal reflux disease): -resume PPI Status: Chronic Qualifiers: Esophagitis presence: esophagitis presence not specified Qualified Code(s): K21.9 - Gastro-esophageal reflux disease without esophagitis (6) Hyperlipidemia: -resume statin, fenofibrate -had recent lipid panel showing significant hypertriglyceridemia Status: Acute Qualifiers: Hyperlipidemia type: unspecified Qualified Code(s): E78.5 - Hyperlipidemia, unspecified Additional A&P Information -Obesity: BMI-32 kg/m2 -remote hx of RCC s/p L nephrectomy -CLD for now, advance as tolerated -GI ppx with PPI -DVT ppx with heparin -admit to ICU due to need for insulin drip, frequent accucheks Attestations Medical Necessity Statement*: Fredi Mccarthy's hospital stay will require greater than 2 midnights for management of DKA in type II DM, requiring frequent accucheks, insulin drip, aggressive IVF hydration. Time Spent in Patient Care: Greater than 35 minutes (>than 50% of time spent in counselling and/or direct pt care on unit) . 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
[2020-03-06] MEDS: sodium chloride 0.9% 1,000 ML 150 ML IV (18:30)
[2020-03-06 19:10] LABS: Glucose Point of Care 319 mg/dL (70-110)
[2020-03-06] MEDS: heparin 5,000 unit/mL INJ 1 mL 5000 UNIT SUBCUT (19:17)
--- NOTE | 2020-03-06 19:28 | PC.NURSE ---
assessment AO x4, speech clear, answers questions appropriately, denied SOB regular unlabored RR RA, lungs clear but diminished CAMACHO, decreased insulin drip to 7.8 ml/hr per protocol
[2020-03-06] MEDS: atorvastatin 40 mg Tablet 80 MG PO (20:14)
[2020-03-06 20:34] LABS: Glucose Point of Care 234 mg/dL (70-110)
[2020-03-06 21:15] LABS: Glucose Point of Care 213 mg/dL (70-110)
[2020-03-06 22:01] LABS: Glucose Point of Care 169 mg/dL (70-110)
[2020-03-06] MEDS: D5-NS 0.45% + KCL 20 mEq 20 MEQ/1,000 ML BAG 150 MEQ IV (22:14)
[2020-03-06 22:54] LABS: Blood Urea Nitrogen 35 mg/dL (8-23); Calcium 8.7 mg/dL (8.5-10.5); Carbon Dioxide 24 mmol/L (22-29); Chloride 101 mmol/L (98-107); Glomerular Filtration Rate 38.7 mL/min (90-130); Glucose 171 mg/dL (65-115); Osmolality Calculated 294 mOsm/kg (285-295); Sodium 136 mmol/L (136-145)
[2020-03-06 23:06] LABS: Anion Gap 16.5 (5-19); Potassium 5.5 mmol/L (3.5-5.1)
--- NOTE | 2020-03-06 23:12 | PC.NURSE ---
N.O. 2200 Dr. Haley notified of glucose 169, T.O. given to start D5 1/2 NS [address] Haley notified of Anion gap 16.5, T.O. given to feed pt, give 60 units Levemir now, after 2 hrs stop insulin drip
[2020-03-07] VITALS (26 sets, daily range): BP systolic 105–171; BP diastolic 65–114; PULSE 83–107; RESP 6–28; TEMP 36.8–37.2; O2SAT 86–97
[2020-03-07 00:09] LABS: Glucose Point of Care 180 mg/dL (70-110)
[2020-03-07 00:09] LABS: Glucose Point of Care 200 mg/dL (70-110)
--- NOTE | 2020-03-07 00:54 | PC.NURSE ---
N.O. Dr. Haley notified of pt eating 1/2 a sandwhich, order given to continue D5 at 75 ml /Hr
--- NOTE | 2020-03-07 01:01 | PC.NURSE ---
Insulin drip stopped per T.O. from Dr. Haley, D5 continuing at 75 ml/hr
--- NOTE | 2020-03-07 02:25 | PC.NURSE ---
Placed on 2L NC for O2 sat high 80's, O2 WNL at this time
--- NOTE | 2020-03-07 03:42 | PC.NURSE ---
N.O. stop D5 Dr. Haley notified that glucose is 288, V.O. given to stop D5 1/2 NS
[2020-03-07 03:51] LABS: Basophils % 0.2 %; Eosinophils # 0.1 10^3/uL (0.0-0.8); Eosinophils % 1.1 %; Hematocrit 34.1 % (42.0-52.0); Hemoglobin 11.5 g/dL (11.7-16.6); Lymphocytes # 2.1 10^3/uL (0.8-4.8); Lymphocytes % 31.4 %; Mean Corpuscular HGB Conc 33.7 g/dL (30.0-36.0); Mean Corpuscular Hemoglobin 26.6 pg (28.0-34.0); Mean Corpuscular Volume 78.8 fL (80-94); Mean Platelet Volume 11.3 fL (7.4-10.4); Monocytes # 0.7 10^3/uL (0.2-0.9); Monocytes % 10.2 %; Neutrophils # 3.76 10^3/uL (1.8-7.7); Neutrophils % 56.8 %; Nucleated Red Blood Cells % 0 %; Platelet Count 141 10^3/cmm (130-400); Red Blood Count 4.33 10^6/uL (4.1-5.3); Red Cell Distribution Width 13.6 % (12.1-15.1); White Blood Count 6.6 10^3/uL (4.0-10.0)
[2020-03-07 04:24] LABS: Glucose Point of Care 288 mg/dL (70-110)
[2020-03-07 04:26] LABS: Alanine Aminotransferase 20 U/L (0-41); Albumin Level 3.1 g/dL (3.5-5.2); Alkaline Phosphatase 132 IU/L (40-130); Aspartate Amino Transferase 19 U/L (0-40); Blood Urea Nitrogen 31 mg/dL (8-23); Calcium 8.1 mg/dL (8.5-10.5); Carbon Dioxide 21 mmol/L (22-29); Chloride 101 mmol/L (98-107); Globulin 2.9 g/dL (1.3-4.6); Glomerular Filtration Rate 44.3 mL/min (90-130); Glucose 292 mg/dL (65-115); Osmolality Calculated 291 mOsm/kg (285-295); Sodium 132 mmol/L (136-145); Total Bilirubin 0.5 mg/dL (0.15-1.2)
[2020-03-07 04:46] LABS: Creatinine Clr Calc Pharmacy 56.5478
[2020-03-07 04:48] LABS: Anion Gap 14.6 (5-19); Potassium 4.6 mmol/L (3.5-5.1)
[2020-03-07] MEDS: heparin 5,000 unit/mL INJ 1 mL 5000 UNIT SUBCUT ×2 (05:32→17:39)
[2020-03-07 05:42] LABS: Glucose Point of Care 255 mg/dL (70-110)
[2020-03-07 07:38] LABS: Anion Gap 13.4 (5-19); Blood Urea Nitrogen 28 mg/dL (8-23); Calcium 8.4 mg/dL (8.5-10.5); Carbon Dioxide 23 mmol/L (22-29); Chloride 101 mmol/L (98-107); Glomerular Filtration Rate 44.3 mL/min (90-130); Glucose 275 mg/dL (65-115); Osmolality Calculated 291 mOsm/kg (285-295); Potassium 4.4 mmol/L (3.5-5.1); Sodium 133 mmol/L (136-145)
[2020-03-07 07:52] LABS: Glucose Point of Care 227 mg/dL (70-110)
[2020-03-07] MEDS: pantoprazole DR 40 mg Tablet PO (07:53)
[2020-03-07] MEDS: aspirin 325 mg Tablet PO (07:53)
--- NOTE | 2020-03-07 08:12 | P.PN_ITS ---
Subjective Subjective: Interval history: AG closed and weaned off insulin drip overnight, electrolytes and hyperglycemia improved. Tolerating oral intake so advance diet this AM. Received 60 units of levemir around midnight. Documented urine output of 150 mL, not sure this is accurate as patient was on aggressive IVF. Noted to desaturate, so on 2 L NC now, remains on isolation precautions pending COVID-19 PCR test results. Medications: Reviewed: Yes Medication Review Details: Active Medications Generic Name Dose Route Start Last Admin Trade Name Freq PRN Reason Stop Dose Admin Acetaminophen 650 mg 03/06/20 18:22 Acetaminophen 32 5 Mg Tablet PO Q6H PRN MILD PAIN Aspirin 325 mg 03/07/20 09:00 03/07/20 07:53 Aspirin 325 Mg T ablet PO 325 mg DAILY LOPEZ Administration Atorvastatin Calci um 80 mg 03/06/20 21:00 03/06/20 20:14 Atorvastatin 40 Mg Tablet PO 80 mg BEDTIME LOPEZ Administration Dextrose 25 ml 03/06/20 16:07 Dextrose 50% Syr brenton 50 Ml IVP ONCE PRN hypoglycemia prot ocol Protocol Dextrose 50 ml 03/06/20 16:07 Dextrose 50% Syr brenton 50 Ml IVP PRN PRN hypoglycemia prot ocol Protocol Dextrose 25 ml 03/06/20 23:57 Dextrose 50% Syr brenton 50 Ml IVP ONCE PRN hypoglycemia prot ocol Protocol Glucagon 1 mg 03/06/20 23:57 Glucagon 1 Mg/Ml Inj 1 Ml IM ONCE PRN Adult Acute Hypog lycemia Prot. Protocol Heparin Sodium (Be ef Lung) 5,000 unit 03/06/20 18:30 03/07/20 05:32 Heparin 5,000 Un it/Ml Inj 1 Ml SUBCUT 5,000 unit Q12H LOPEZ Administration Dextrose 500 mls @ 100 mls /hr 03/06/20 23:57 D5w IV ONCE PRN Adult Acute Hypog lycemia Prot Protocol Potassium Chloride /Dextrose/Sod Cl 20 meq in 1,000 m ls @ 125 mls/hr 03/07/20 08:00 D5-Ns 0.45% + Chon l 20 Meq IV .Q8H LOPEZ Insulin Aspart 0 unit 03/07/20 08:00 03/07/20 07:53 Insulin Aspart 1 00 Unit/1 Ml SUBCUT 6 unit WM&BEDTIME LOPEZ Administration Protocol Insulin Aspart 10 unit 03/07/20 12:00 Insulin Aspart 1 00 Unit/1 Ml SUBCUT TIDWM [facility] Insulin Detemir 40 unit 03/07/20 21:00 Insulin Detemir 100 Units/1 Ml SUBCUT BEDTIME [facility] Morphine Sulfate 2 mg 03/06/20 18:22 Morphine 4 Mg/Ml Sdv 1 Ml IVP Q4H PRN SEVERE PAIN Non-Formulary Medi cation 160 mg 03/06/20 21:00 Fenofibrate PO BEDTIME [facility] Ondansetron HCl 4 mg 03/06/20 18:22 Ondansetron 2 Mg /Ml Sdv 2 Ml IVP Q6H PRN NAUSEA AND VOMITI NG Pantoprazole Sodiu m 40 mg 03/07/20 08:00 03/07/20 07:[address] 40 Mg Tablet PO 40 mg DAILY@0800 [facility] Administration Sulfa (Sulfonamide Antibiotics) Allergy (Unknown, Verified 06/05/19 10:40) RASH cephalexin Allergy (Verified 06/05/19 10:40) Unknown clindamycin Allergy (Verified 06/05/19 10:40) Unknown Vitals/I&O/Wt Last Vital Signs Temp 98.4 F 03/07/20 08:00 Pulse 107 H 03/07/20 08:00 Resp 28 H 03/07/20 08:00 BP 140/85 03/07/20 08:00 Pulse Ox 91 03/07/20 08:00 03/06/20 03/07/20 03/07/20 22:59 06:59 14:59 Intake Total 1611.033 / 1611.033 Output Total 150 / 150 Balance 1611.033 / 1611.033 -150 / 1461.033 Weight last 48 hrs Weight 93.44 kg Weight 97.522 kg Physical Exam Const: COMMON NORMALS: no acute distress, patient oriented x3 and alert GENERAL APPEARANCE: cooperative and comfortable ORIENTATION/CONSCIOUSNESS: Yes awake OTHER: -looks younger than stated age HENMT: COMMON NORMALS: normocephalic, atraumatic, hearing grossly normal bilaterally and moist oral mucous membranes HEAD & SCALP: normocephalic and atraumatic Eye: COMMON NORMALS: Equal, round and reactive pupils present, EOMs intact bilaterally and conjunctivae normal CONJUNCTIVA: Yes conjunctivae normal PUPIL: Yes Equal, round and reactive pupils present Neck/C-Spine: COMMON NORMALS: full ROM GENERAL: Yes normal visual inspection and Yes trachea midline Resp: COMMON NORMALS: normal respiratory effort, No retractions, No use of accessory muscles and clear to auscultation bilaterally EFFORT & INSPECTION: Yes able to speak in complete sentences, Yes symmetric chest movement and No tachypneic AUSCULTATION: clear to auscultation bilaterally OTHER: -on 2 L NC Cardio: COMMON NORMALS: regular rhythm, S1 normal heart sound present, S2 normal heart sound present and No murmurs present (Cardio) RATE: tachycardic RHYTHM: regular rhythm HEART SOUNDS: S1 normal heart sound present and S2 normal heart sound present GI: COMMON NORMALS: Normal to inspection, nondistended, normoactive bowel sounds present, Soft to palpation and non-tender INSPECTION: Yes central obesity PALPATION: Yes Soft to palpation Extremity: COMMON NORMALS: normal to inspection, full ROM and no clubbing, cyanosis or edema; negative for no pedal edema Neuro: COMMON NORMALS: patient oriented x3, moves all extremities, no focal motor deficits and no sensory deficits noted SENSORIUM/ORIENTATION: Yes alert Psych: COMMON NORMALS: mental status grossly normal, Normal thought process present, cooperative, normal affect and speech normal SPEECH: Yes normal speech THOUGHT PROCESS: Normal thought process present Skin: COMMON NORMALS: no rashes or lesions noted, no jaundice, no petechiae a nd no mottling GENERAL SKIN EXAM: no rashes or lesions noted Data : 03/07/20 03:24 03/07/20 06:44 Micro: Microbiology 03/06/20 20:50 Blood Culture - Preliminary Blood SPECIMEN COLLECTED 03/06/20 20:50 Blood Culture - Preliminary Blood SPECIMEN COLLECTED A&P Assessment and plan (1) DKA (diabetic ketoacidoses): -Noted to have significant hyperglycemia with blood glucose greater than 900, ketonuria, glucosuria, positive serum ketones, elevated anion gap -AG closed and weaned off insulin drip -Accu-Cheks AC and qhs -Aggressive IV fluid hydration, wean with improved oral tolerance -hypoglycemia precautions particularly as oral intake as been poor -hyperglycemia improved, with BG <250 -noted pseudohyponatremia given significant hyperglycemia; improved -hyperkalemia resolved with insulin drip -last A1c-8.9 (02/2020), [id number] -no signs of infection at this time; UA with trace bacteria but asymptomatic; CXR-mild bilateral ground-glass infiltrates, no jess consolidation, blood cx pending; afebrile, no leukocytosis. Now requiring some supplemental oxygen support Status: Acute Qualifiers: Diabetes mellitus complication detail: without coma Diabetes mellitus type: type 2 Qualified Code(s): E11.10 - Type 2 diabetes mellitus with ketoacidosis without coma (2) Exposure to COVID-19 virus: -recent exposure to coworker who tested positive for COVID-19 -rapid test negative, PCR pending -isolation precautions Status: Acute (3) Hypertension: -continue to monitor vital signs -continue oral antihypertensives -resume lasix, ACEi, renal function at baseline Status: Chronic Qualifiers: Hypertension type: essential hypertension Qualified Code(s): I10 - Essential (primary) hypertension (4) CKD stage 3 due to type 2 diabetes mellitus: -baseline Cr seems to be around 1.7-2.0; CKD stage 3b -continue to monitor renal function, avoid nephrotoxins, renally dose meds -continue to monitor urine output Status: Chronic (5) GERD (gastroesophageal reflux disease): -continue PPI Status: Chronic Qualifiers: Esophagitis presence: esophagitis presence not specified Qualified Code(s): K21.9 - Gastro-esophageal reflux disease without esophagitis (6) Hyperlipidemia: -continue statin, fenofibrate -had recent lipid panel showing significant hypertriglyceridemia (TGs > 700) Status: Acute Qualifiers: Hyperlipidemia type: unspecified Qualified Code(s): E78.5 - Hyperlipidemia, unspecified Additional A&P Information -Obesity: BMI-30 kg/m2 -remote hx of RCC s/p L nephrectomy -advance to consistent carb diet -GI ppx with PPI -DVT ppx with heparin Attestations Medical Necessity Statement*: Patient requires hospitalization for continued management of DKA in type II DM, now transitioned to SC insulin with need for continued monitoring of blood glucose, pending improved oral tolerance. Time Spent in Patient Care: 16 - 35 minutes (>than 50% of time spent in counselling and/or direct pt care on unit) . Coding Level of Care Code Acute Preparation Plant Repairer for g Fwd Exam Comprehensive Diagnoses DKA (diabetic ketoacidoses) E11.10 Diabetes mellitus complication detail: without coma Diabetes mellitus type: type 2 Exposure to COVID-19 virus Z20.828 Hypertension I10 Hypertension type: essential hypertension CKD stage 3 due to type 2 diabetes mellitus E11.22; N18.30 GERD (gastroesophageal reflux disease) K21.9 Esophagitis presence: esophagitis presence not specified Hyperlipidemia E78.5 Hyperlipidemia type: unspecified
[2020-03-07] MEDS: D5-NS 0.45% + KCL 20 mEq 20 MEQ/1,000 ML BAG 125 MEQ IV ×2 (08:39→17:08)
[2020-03-07] MEDS: FUROsemide 20 mg Tablet PO (08:39)
--- NOTE | 2020-03-07 10:27 | PC.NURSE ---
Rounding upon rounding at 0730 patient stating that he is ready to be sent home. nurse educated on waiting for a few more labs. vital signs WNL. patient refused to wear oxygen at this time. no complaints.
[2020-03-07 11:43] LABS: Glucose Point of Care 337 mg/dL (70-110)
--- NOTE | 2020-03-07 13:23 | PC.NURSE ---
Call to physician call to clarify if is wanting the sliding scale dose of insulin given at 1200 or the scheduled 10units. nurse informed to give the scheduled 10 units.
--- NOTE | 2020-03-07 15:06 | PC.NURSE ---
attempted to eat patient attempted to eat lunch brought in by nurse. patient was able to eat a few bites of hamburger before spitting up food. patient informed nurse that the process of chewing made me feel nauseous. educated on medication to help prevent nausea. patient refused medication at this time. 2 sugar free puddings brought to patient, patient was able to eat and keep down. notified.
[2020-03-07 17:23] LABS: Glucose Point of Care 278 mg/dL (70-110)
[2020-03-07 20:42] LABS: Glucose Point of Care 258 mg/dL (70-110)
[2020-03-07] MEDS: atorvastatin 40 mg Tablet 80 MG PO (20:45)
[2020-03-08] VITALS (11 sets, daily range): BP systolic 111–147; BP diastolic 64–98; PULSE 93–99; RESP 17–19; TEMP 36.8–37.2; O2SAT 91–97
--- NOTE | 2020-03-08 03:59 | PC.NURSE ---
ASSUMING CARE Patient sitting up in bed on phone. Family brought push pops and cough drops for patient brought by a coworker. Patient on room air, alert and oriented. Denies any pain at this time.
--- NOTE | 2020-03-08 04:30 | PC.NURSE ---
COVID POSITIVE Lab called to confirm COVID test results since patient was testing at his primary care physicians office. Lab reported a positive result. Physician notified and patient being transferred to med/surg COVID unit.
--- NOTE | 2020-03-08 04:36 | PC.NURSE ---
TRANSFER Report called to [facility] on Med/Surg. Patient taken to room 257 in a wheel chair with all belongings, patient sitting on side of bed in his room with call light next to him.
[2020-03-08 04:45] LABS: Basophils % 0.3 %; Eosinophils # 0.2 10^3/uL (0.0-0.8); Eosinophils % 3.2 %; Hematocrit 40.3 % (42.0-52.0); Hemoglobin 13.4 g/dL (11.7-16.6); Lymphocytes # 2.1 10^3/uL (0.8-4.8); Lymphocytes % 29.4 %; Mean Corpuscular HGB Conc 33.3 g/dL (30.0-36.0); Mean Corpuscular Hemoglobin 26.5 pg (28.0-34.0); Mean Corpuscular Volume 79.8 fL (80-94); Mean Platelet Volume 10.6 fL (7.4-10.4); Monocytes # 0.6 10^3/uL (0.2-0.9); Neutrophils # 4.09 10^3/uL (1.8-7.7); Neutrophils % 58.7 %; Nucleated Red Blood Cells % 0 %; Platelet Count 178 10^3/cmm (130-400); Red Blood Count 5.05 10^6/uL (4.1-5.3); Red Cell Distribution Width 13.5 % (12.1-15.1)
[2020-03-08 05:21] LABS: Anion Gap 15.3 (5-19); Blood Urea Nitrogen 22 mg/dL (8-23); Calcium 8.7 mg/dL (8.5-10.5); Carbon Dioxide 23 mmol/L (22-29); Chloride 100 mmol/L (98-107); Glomerular Filtration Rate 44.3 mL/min (90-130); Glucose 186 mg/dL (65-115); Osmolality Calculated 286 mOsm/kg (285-295); Potassium 4.3 mmol/L (3.5-5.1); Sodium 134 mmol/L (136-145)
[2020-03-08] MEDS: heparin 5,000 unit/mL INJ 1 mL 5000 UNIT SUBCUT (05:31)
[2020-03-08 06:49] LABS: Glucose Point of Care 209 mg/dL (70-110)
--- NOTE | 2020-03-08 08:25 | PM.DCS ---
Discharge Providers Date of Admission: 03/06/20 16:51 Date of Discharge: March 08, 2020 Attending Provider at Admission: Bette Person MD Attending Provider at Discharge: Bette Person MD Consults: None Primary Care Provider: Soheila Castro MD Diagnoses at Discharge Discharge Diagnosis (1) DKA (diabetic ketoacidoses): Status: Acute Permanent problem details: -Noted to have significant hyperglycemia with blood glucose greater than 900, ketonuria, glucosuria, positive serum ketones, elevated anion gap -AG closed and weaned off insulin drip -hyperglycemia improved, with BG <250 -noted pseudohyponatremia given significant hyperglycemia; improved -hyperkalemia resolved with insulin drip -last A1c-8.9 (02/2020), [id number] -likely triggered by COVID-19 infection; UA with trace bacteria but asymptomatic; CXR-mild bilateral ground-glass infiltrates, no jess consolidation, blood cx prelim negative; afebrile, no leukocytosis. Qualifiers: Diabetes mellitus complication detail: without coma Diabetes mellitus type: type 2 Qualified Code(s): E11.10 - Type 2 diabetes mellitus with ketoacidosis without coma (2) Exposure to COVID-19 virus: Status: Acute Permanent problem details: -recent exposure to coworker who tested positive for COVID-19 -rapid test negative, PCR positive -isolation precautions -home oxygen evaluation done prior to d/c; does not qualify for this (3) Hypertension: Status: Chronic Permanent problem details: -continue oral antihypertensives Qualifiers: Hypertension type: essential hypertension Qualified Code(s): I10 - Essential (primary) hypertension (4) CKD stage 3 due to type 2 diabetes mellitus: Status: Chronic Permanent problem details: -baseline Cr seems to be around 1.7-2.0; CKD stage 3b (5) GERD (gastroesophageal reflux disease): Status: Chronic Permanent problem details: -continue PPI Qualifiers: Esophagitis presence: esophagitis presence not specified Qualified Code(s): K21.9 - Gastro-esophageal reflux disease without esophagitis (6) Hyperlipidemia: Status: Acute Permanent problem details: -continue statin, fenofibrate Qualifiers: Hyperlipidemia type: unspecified Qualified Code(s): E78.5 - Hyperlipidemia, unspecified Other Information Additional DC diagnoses/information: -Obesity: BMI-30 kg/m2 -remote hx of RCC s/p L nephrectomy Reason for Visit Reason for Visit: COVID SYMPTOMS Hospital Course Hospital Course Patient was initially admitted to ICU secondary to DKA and need for insulin drip, aggressive IV fluid hydration and frequent Accu-Cheks. Was found to be significantly hyperglycemic with blood glucose over 900, glucosuria, ketonemia and ketonuria. Anion gap quickly closed, electrolytes corrected and hypoglycemia improved at which point he was weaned off insulin drip and started on subcutaneous insulin. Oral intake begun to improve as well and though he is not quite at his baseline in terms of his appetite he is able to tolerate oral intake at this time. Glucose has consistently been between 200-300, most recent A1c done last month was 8.9 with estimated blood glucose at 219. I have adjusted his insulin regimen in part due to his limited oral intake and not having had quite as high an insulin requirement while hospitalized. He had recently been exposed to a coworker who tested positive for COVID-19, rapid testing was negative but PCR testing has come back positive. He required supplemental oxygen support for very brief period of time, does not use supplemental oxygen at baseline, otherwise respiratory symptoms have been limited, he has consistently been hemodynamically stable and afebrile. He will require self-isolation for at least 10 to 14 days since testing particularly as he is considered immunocompromised given hx of IDDM type II. He is to continue to monitor for shortness of breath, hypoxia, fever, inability to tolerate oral intake and to seek medical attention immediately should any of these symptoms persist. While here, he has been on isolation precautions. He will require appropriate follow up with his primary care provider. Once COVID-19 test resulted he was moved to the medical surgical floor COVID-19 unit. Physical Exam Const: COMMON NORMALS: no acute distress, patient oriented x3 and alert GENERAL APPEARANCE: cooperative and comfortable ORIENTATION/CONSCIOUSNESS: Yes awake OTHER: -looks younger than stated age HENMT: COMMON NORMALS: normocephalic, atraumatic, hearing grossly normal bilaterally and moist oral mucous membranes HEAD & SCALP: normocephalic and atraumatic Eye: COMMON NORMALS: Equal, round and reactive pupils present, EOMs intact bilaterally and conjunctivae normal CONJUNCTIVA: Yes conjunctivae normal PUPIL: Yes Equal, round and reactive pupils present Neck/C-Spine: COMMON NORMALS: full ROM GENERAL: Yes normal visual inspection and Yes trachea midline Resp: COMMON NORMALS: normal respiratory effort, No retractions, No use of accessory muscles and clear to auscultation bilaterally EFFORT & INSPECTION: Yes able to speak in complete sentences, Yes symmetric chest movement and No tachypneic AUSCULTATION: clear to auscultation bilaterally OTHER: -on RA Cardio: COMMON NORMALS: regular rhythm, S1 normal heart sound present, S2 normal heart sound present and No murmurs present (Cardio) RATE: tachycardic RHYTHM: regular rhythm HEART SOUNDS: S1 normal heart sound present and S2 normal heart sound present GI: COMMON NORMALS: Normal to inspection, nondistended, normoactive bowel sounds present, Soft to palpation and non-tender INSPECTION: Yes central obesity PALPATION: Yes Soft to palpation Extremity: COMMON NORMALS: normal to inspection, full ROM and no clubbing, cyanosis or edema; negative for no pedal edema Neuro: COMMON NORMALS: patient oriented x3, moves all extremities, no focal motor deficits and no sensory deficits noted SENSORIUM/ORIENTATION: Yes alert Psych: COMMON NORMALS: mental status grossly normal, Normal thought process present, cooperative, normal affect and speech normal SPEECH: Yes normal speech THOUGHT PROCESS: Normal thought process present Skin: COMMON NORMALS: no rashes or lesions noted, no jaundice, no petechiae and no mottling GENERAL SKIN EXAM: no rashes or lesions noted Discharge Data Data Completed and Pending: Completed Studies During Hospitalization Category Date Time Status XR chest 1V marissa ble [id number] Stat Exams 03/06/20 16:50 Completed Pending at discharge Category Date Time Status Blood Culture Sta t Lab 03/06/20 20:50 Results Labs from last 24 hours 03/08/20 03/08/20 03/08/20 06:17 04:21 04:21 WBC 7.0 RBC 5.05 Hgb 13.4 Hct 40.3 L MCV 79.8 L MCH 26.5 L MCHC 33.3 RDW 13.5 Plt Count 178 MPV 10.6 H Neut % (Auto) 58.7 Lymph % (Auto) 29.4 Haines % (Auto) 8.0 Eos % (Auto) 3.2 Baso % (Auto) 0.3 Neut # (Auto) 4.09 Lymph # (Auto) 2.1 Haines # (Auto) 0.6 Eos # (Auto) 0.2 Baso # (Auto) 0.0 Nucleated RBC % (a uto) 0 Nucleated RBCs # 0.0 Sodium 134 L Potassium 4.3 Chloride 100 Carbon Dioxide 23 Anion Gap 15.3 BUN 22 Creatinine 1.6 H GFR Calculation 44.3 L Glucose 186 H POC Glucose 209 Calculated Osmolal ity 286 Calcium 8.7 03/07/20 03/07/20 03/07/20 20:38 17:12 11:38 WBC RBC Hgb Hct MCV MCH MCHC RDW Plt Count MPV Neut % (Auto) Lymph % (Auto) Haines % (Auto) Eos % (Auto) Baso % (Auto) Neut # (Auto) Lymph # (Auto) Haines # (Auto) Eos # (Auto) Baso # (Auto) Nucleated RBC % (a uto) Nucleated RBCs # Sodium Potassium Chloride Carbon Dioxide Anion Gap BUN Creatinine GFR Calculation Glucose POC Glucose 258 278 337 Calculated Osmolal ity Calcium Vitals: Last Vital Signs Temp 98.9 F 03/08/20 07:45 Pulse 97 03/08/20 07:45 Resp 18 03/08/20 07:45 BP 137/78 03/08/20 07:45 Pulse Ox 95 03/08/20 07:45 Discharge Plan Discharge Patient Disposition: Home Condition: Stable Prescriptions: New ascorbic acid (vitamin C) 500 mg tablet 500 mg PO DAILY Qty: 30 RF: 0 zinc gluconate 50 mg tablet 50 mg PO DAILY Qty: 30 RF: 0 Continued Centrum Silver Men 300-600-300 mcg tablet 1 tab PO DAILY@08 RF: 0 aspirin 325 mg tablet 325 mg PO DAILY@22 RF: 0 atorvastatin 80 mg tablet 80 mg PO DAILY@22 RF: 0 lisinopril 10 mg tablet 10 mg PO EVERY OTHER DAY@08 RF: 0 furosemide 20 mg tablet 20 mg PO DAILY@08 RF: 0 fenofibrate 160 mg tablet 160 mg PO DAILY@22 RF: 0 omeprazole 20 mg tablet,delayed release (DR/EC) 20 mg PO DAILY@08 RF: 0 Changed insulin aspart U-100 [Novolog Flexpen U-100 Insulin] 100 unit/mL (3 mL) insulin pen 10 unit SUBCUT TID Qty: 15 RF: 4 Levemir U-100 Insulin 100 unit/mL solution 30 unit SUBCUT BEDTIME Qty: 0 RF: 0 Discharge Orders: Discharge Order (Routine); Ordered 03/08/20 Ordered By: Bette Person Referrals: Soheila Castro MD [Primary Care Provider] - 4-7 days Discharge Diet: Advance as tolerated and Diabetic Discharge Activity: Increase activity as tolerated Activity Restrictions/Additional Instructions: -Please note that you are COVID-19 positive and will need to self isolate with continued monitoring for fever, shortness of breath, low oxygen levels, inability to eat or drink; any of these symptoms will require immediate medical attention Discharge Attestations Time Spent in Discharge Care*: greater than 30 min Specific Discharge Activities: educating patient, educating and/or supporting family/caregiver, discussing with hospice case manager/social workers/dc planners, documenting/other paperwork and evaluating patient/reviewing data Status at Discharge: Cognitive status at discharge: cognitively intact, Behavioral status at discharge: cooperative and independent in ADL's, Functional status at discharge: independent ambulation Overall status at discharge: patient is progressing back to baseline Quality Metrics Clinical Quality Measures During this hospital stay, did patient experience: None Coding Level of Care Code 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
[2020-03-08] MEDS: pantoprazole DR 40 mg Tablet PO (08:28)
[2020-03-08] MEDS: ascorbic acid 500 mg Tablet PO (08:28)
[2020-03-08] MEDS: aspirin 325 mg Tablet PO (08:28)
[2020-03-08] MEDS: zinc gluconate 50 mg Tablet PO (08:28)
[2020-03-08] MEDS: FUROsemide 20 mg Tablet PO (08:28)
[2020-03-08 11:30] LABS: Glucose Point of Care 244 mg/dL (70-110)
== END 2020-03-08 13:45 | disposition home or self-care (01) | DRG 638 ==
LOC: ER 17:04 → ICU 17:17 → MEDSURG 03-08 04:41
PROVIDERS: Nurse Practitioner Family; Admitting Provider Family Medicine; Emergency Provider Family Medicine; PCP Family Medicine; Visit Provider Family Medicine
DX: E11.10 Type 2 diabetes mellitus with ketoacidosis without coma (principal); D84.89 Other immunodeficiencies; E11.22 Type 2 diabetes mellitus with diabetic chronic kidney disease; I12.9 Hypertensive chronic kidney disease with stage 1 through stage 4 chronic kidney disease, or unspecified chronic kidney disease; N18.32 Chronic kidney disease, stage 3b; E11.319 Type 2 diabetes mellitus with unspecified diabetic retinopathy without macular edema; E11.40 Type 2 diabetes mellitus with diabetic neuropathy, unspecified; K21.9 Gastro-esophageal reflux disease without esophagitis; Z86.14 Personal history of Methicillin resistant Staphylococcus aureus infection; Z85.528 Personal history of other malignant neoplasm of kidney; Z90.5 Acquired absence of kidney; E78.5 Hyperlipidemia, unspecified; E66.9 Obesity, unspecified; Z68.32 Body mass index [BMI] 32.0-32.9, adult; Z20.828 Contact with and (suspected) exposure to other viral communicable diseases; E87.5 Hyperkalemia
CPT/HCPCS: 12345; 36415; 36416; 36600; 71045; 80048; 80051; 80053; 81001; 82009; 82330; 82805; 82962; 83605; 85025; 86140; 87040; 87426; 87635; 96372; 99283; J1644; J1815; J7030; J7050

== ENCOUNTER 2020-03-25 14:18 | Outpatient (CLI) | payer MEDICARE, SELFPAY | END 2020-03-25 14:19 | disposition home or self-care (01) | PROVIDERS: PCP Family Medicine; Visit Provider Nurse Practitioner Family | DX: E11.621 Type 2 diabetes mellitus with foot ulcer (principal); L97.512 Non-pressure chronic ulcer of other part of right foot with fat layer exposed | CPT/HCPCS: 11042; 87070; 87176; 87205; G0463 ==

== ENCOUNTER 2020-03-30 12:51 | Outpatient (CLI) | payer MEDICARE, SELFPAY ==
--- NOTE | 2020-03-30 12:59 | XR_ITS ---
WS: [id number] Exam: XR foot RT min 3V* [id number] Date/Time of Exam: 03/30/2020 1:10 PM Reason For Exam: PAIN REDNESS NONHEALING ULCER Comparison 01/15/2013. No acute fracture or dislocation. Degenerative changes of the MP joints of all 5 digits. Degenerative changes of the IP joints. No soft tissue foreign bodies. Small plantar heel spur. XR/XR foot RT min 3V* [id number] IMPRESSION: 1. Degenerative changes. No fracture or dislocation.
== END 2020-03-30 12:52 | disposition home or self-care (01) ==
LOC: RADWPI 12:56
PROVIDERS: PCP Family Medicine; Visit Provider Nurse Practitioner Family
DX: E11.621 Type 2 diabetes mellitus with foot ulcer (principal); L53.9 Erythematous condition, unspecified; M79.671 Pain in right foot
CPT/HCPCS: 73630

== ENCOUNTER 2020-04-01 14:52 | Outpatient (CLI) | payer MEDICARE, SELFPAY | END 2020-04-01 14:53 | disposition home or self-care (01) | LOC: WOUND 14:55 | PROVIDERS: PCP Family Medicine; Visit Provider Nurse Practitioner Family | DX: E11.621 Type 2 diabetes mellitus with foot ulcer (principal); L97.512 Non-pressure chronic ulcer of other part of right foot with fat layer exposed | CPT/HCPCS: 11042 ==

== ENCOUNTER 2020-04-08 09:48 | Outpatient (CLI) | payer MEDICARE, SELFPAY | END 2020-04-08 09:49 | disposition home or self-care (01) | LOC: WOUND 09:51 | PROVIDERS: PCP Family Medicine; Visit Provider Thoracic Surgery (Cardiothoracic Vascular Surgery) | DX: E11.622 Type 2 diabetes mellitus with other skin ulcer (principal); L97.522 Non-pressure chronic ulcer of other part of left foot with fat layer exposed | CPT/HCPCS: 11042; 87070; 87176; 87205; L3260 ==

== ENCOUNTER 2020-04-09 13:50 | Outpatient (CLI) | payer MEDICARE, SELFPAY | END 2020-04-09 13:51 | disposition home or self-care (01) | LOC: WOUND 13:51 | PROVIDERS: PCP Family Medicine; Visit Provider Nurse Practitioner Family | DX: E11.621 Type 2 diabetes mellitus with foot ulcer (principal); L97.512 Non-pressure chronic ulcer of other part of right foot with fat layer exposed | CPT/HCPCS: G0463 ==

== ENCOUNTER 2020-04-09 21:35 | Emergency (ER) | payer MEDICARE, SELFPAY ==
[2020-04-09 21:46] VITALS: BP 121/74; PULSE 110; RESP 16; TEMP 36.4; O2SAT 99; BMI 30.1
--- NOTE | 2020-04-09 22:08 | XRR_ITS ---
PROCEDURE INFORMATION: Exam: XR Right Foot Complete Exam date and time: 04/09/2020 10:09 PM Age: 60 years old Clinical indication: Pain; Foot; Right; Additional info: Right toe pain TECHNIQUE: Imaging protocol: XR Right foot. Views: 3 or more views. COMPARISON: CR XR foot RT min 3V* [id number] 03/30/2020 1:15 PM FINDINGS: Bones/joints: There is mild deformity of the articular surfaces of the 2nd through 5th metatarsophalangeal joints compatible with degenerative joint disease. Soft tissues: Normal. XR/XR foot RT min 3V* [id number] IMPRESSION: 1. Degenerative changes are again seen within the 2nd through 5th metatarsophalangeal joints of the right foot. 2. There are no acute findings.
[2020-04-09 22:10] VITALS: BP 149/87; PULSE 119; RESP 16; O2SAT 100
--- NOTE | 2020-04-09 22:14 | ED_ITS ---
HPI - Skin/Abscess/Foreign Bdy General: Chief complaint: Skin/Abscess/Foreign Body Stated complaint: infection in right big toe Time Seen by Provider: 04/09/20 22:03 Source: patient Mode of arrival: ambulatory Limitations: no limitations History of Present Illness: HPI narrative: 60-year-old male who states that he has a history of diabetes and has a wound to his right great toe. She was seen at wound care clinic yesterday and started on Cipro and seen today and had linezolid added. He states he had some slight increased redness. States he would make sure he did not have osteomyelitis. He denies any fever. Denies any pain. Denies any worsening improving factors. Associated symptoms: Deny chills, fever(s), nausea or vomiting Review of Systems Const: Denies: fever(s), chills, body aches or change in appetite Eyes: Denies: blurry vision or eye discomfort ENMT: Denies: throat pain or dental pain Card: Denies: chest pain Resp: Denies: dyspnea GI: Denies: abdominal pain, nausea, vomiting or diarrhea : Denies: dysuria Musc: Denies: neck pain or back pain Skin/Breast: Reports: erythema Neuro: Denies: headache(s) Psych: Denies: depression Arnulfo/Lymph: Denies: easy bruising All/Imm: Denies: urticaria PFSH ED PFSH: Medical History CKD stage 3 due to type 2 diabetes mellitus -baseline Cr seems to be around 1.7-2.0; CKD stage 3b Diabetes -complicated by retinopathy and neuropathy GERD (gastroesophageal reflux disease) -continue PPI History of MRSA infection History of renal carcinoma Hyperlipidemia -continue statin, fenofibrate Hypertension -continue oral antihypertensives Surgical History History of nephrectomy (~08/2008) -secondary to RCC Family History Father Chronic kidney disease (CKD) father from ESRD Mother Liver disease Social History Smoking and tobacco status: never smoked Alcohol intake: never Marital status: Current gender identity: Male Physical Exam Const: COMMON NORMALS: no acute distress, patient oriented x3 and healthy appearing HENMT: COMMON NORMALS: normocephalic and atraumatic HEAD & SCALP: normocephalic and atraumatic Eye: COMMON NORMALS: Equal, round and reactive pupils present and EOMs intact bilaterally PUPIL: Yes Equal, round and reactive pupils present Neck/C-Spine: COMMON NORMALS: full ROM and supple Chest: COMMONS NORMALS: normal inspection of the chest and normal palpation of entire chest wall Resp: COMMON NORMALS: normal respiratory effort, No retractions, No use of accessory muscles and clear to auscultation bilaterally AUSCULTATION: clear to auscultation bilaterally Cardio: COMMON NORMALS: regular rate, regular rhythm and No murmurs present (Cardio) RATE: regular rate RHYTHM: regular rhythm GI: COMMON NORMALS: Normal to inspection, nondistended, normoactive bowel sounds present, Soft to palpation, non-tender and no masses PALPATION: Yes Soft to palpation Extremity: COMMON NORMALS: full ROM NARRATIVE EXTREMITY EXAM: Small less than a dime size ulcer to right great toe with slight cellulitis Neuro: COMMON NORMALS: patient oriented x3, moves all extremities and no focal motor deficits Psych: COMMON NORMALS: mental status grossly normal, Normal thought process present and cooperative THOUGHT PROCESS: Normal thought process present Skin: COMMON NORMALS: no rashes or lesions noted and no wounds GENERAL SKIN EXAM: no rashes or lesions noted Course Vital Signs: Vital signs: Vital Signs Temperature 97.6 F 04/09/20 21:46 Pulse Rate 119 H 04/09/20 22:10 Respiratory Rate 16 04/09/20 22:10 Blood Pressure 149/87 04/09/20 22:10 Pulse Oximetry 100 04/09/20 22:10 MDM - Skin/Abscess/Foreign Bdy MDM Narrative: Medical decision making narrative: Fredi presents here with cellulitis to his great toe. He has no signs of osteomyelitis here. Feel patient is stable for discharge and is continue to follow with wound care take his antibiotics. He is return if he has any worsening. He understands and agrees to plan. Lab Data: Labs: Lab Results 04/09/20 Range/Units 22:26 WBC 9.5 (4.0-10.0) 10^3/ uL RBC 4.32 (4.1-5.3) 10^6/u L Hgb 11.4 L (11.7-16.6) g/dL Hct 36.9 L (42.0-52.0) % MCV 85.4 (80-94) fL MCH 26.4 L (28.0-34.0) pg MCHC 30.9 (30.0-36.0) g/dL RDW 13.3 (12.1-15.1) % Plt Count 347 (130-400) 10^3/c mm MPV 10.0 (7.4-10.4) fL Neut % (Auto) 55.0 % Lymph % (Auto) 26.8 % Fallon % (Auto) 11.8 % Eos % (Auto) 5.2 % Baso % (Auto) 1.0 % Neut # (Auto) 5.23 (1.8-7.7) 10^3/u L Lymph # (Auto) 2.6 (0.8-4.8) 10^3/u L Fallon # (Auto) 1.1 H (0.2-0.9) 10^3/u L Eos # (Auto) 0.5 (0.0-0.8) 10^3/u L Baso # (Auto) 0.1 (0.0-0.1) 10^3/u L Nucleated RBC % (a uto) 0 % Nucleated RBCs # 0.0 /100WBC Imaging Data^: Other Xray: Attestation: I personally reviewed and interpreted this imaging study as follows: Radiologist's impression: [address] [address] XRay Report Signed Patient: Fredi Mccarthy Unit #: [id number] : 1960 Age/Sex: 60 / M ADM Date: 04/09/20 Loc: ER Room/Bed: Attending Dr: Ordering Provider/Ordering MD: Jack Jaffe MD Date of Service: 04/09/20 Procedure(s): XR foot RT min 3V* [id number] Accession Number(s): [id number] Report Number: [id number] PROCEDURE INFORMATION: Exam: XR Right Foot Complete Exam date and time: 04/09/2020 10:09 PM Age: 60 years old Clinical indication: Pain; Foot; Right; Additional info: Right toe pain TECHNIQUE: Imaging protocol: XR Right foot. Views: 3 or more views. COMPARISON: CR XR foot RT min 3V* [id number] 03/30/2020 1:15 PM FINDINGS: Bones/joints: There is mild deformity of the articular surfaces of the 2nd through 5th metatarsophalangeal joints compatible with degenerative joint disease. Soft tissues: Normal. XR/XR foot RT min 3V* [id number] IMPRESSION: 1. Degenerative changes are again seen within the 2nd through 5th metatarsophalangeal joints of the right foot. 2. There are no acute findings. Discharge Plan Discharge Patient Disposition: Home Clinical Impression: Cellulitis Qualifiers: Site of cellulitis: extremity Site of cellulitis of extremity: toe Laterality: right Qualified Code(s): L03.031 - Cellulitis of right toe Condition: Stable Prescriptions: No Action Centrum Silver Men 300-600-300 mcg tablet 1 tab PO DAILY@08 RF: 0 aspirin 325 mg tablet 325 mg PO DAILY@22 RF: 0 (DME) blood-glucose meter [Blood Glucose Monitoring] Kit See Rx Instructions .ROUTE .MEDSUPPLY Qty: 1 RF: 0 (DME) Blood Glucose Test Strip See Rx Instructions .ROUTE .MEDSUPPLY Qty: 100 RF: 2 atorvastatin 80 mg tablet 80 mg PO DAILY@22 RF: 0 lisinopril 10 mg tablet 10 mg PO EVERY OTHER DAY@08 RF: 0 furosemide 20 mg tablet 20 mg PO DAILY@08 RF: 0 fenofibrate 160 mg tablet 160 mg PO DAILY@22 RF: 0 omeprazole 20 mg tablet,delayed release (DR/EC) 20 mg PO DAILY@08 RF: 0 Novolog Flexpen U-100 Insulin 100 unit/mL (3 mL) insulin pen 10 unit SUBCUT TID Qty: 15 RF: 4 Levemir U-100 Insulin 100 unit/mL solution 30 unit SUBCUT BEDTIME Qty: 0 RF: 0 ascorbic acid (vitamin C) 500 mg tablet 500 mg PO DAILY Qty: 30 RF: 0 zinc gluconate 50 mg tablet 50 mg PO DAILY Qty: 30 RF: 0 Discharge Orders: Discharge ED (Routine); Ordered 04/09/20 Ordered By: Jack Jaffe Referrals: Soheila Castro MD [Primary Care Provider] - Discharge Diet: Advance as tolerated Discharge Activity: Resume usual activity Patient Instructions: Cellulitis (ED) Coding Level of Care Code 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
[2020-04-09] MEDS: vancomycin 1,000 MG in sodium chloride 0.9% 250 ML 250 MG IV (22:31)
[2020-04-09 22:40] LABS: Basophils # 0.1 10^3/uL (0.0-0.1); Eosinophils # 0.5 10^3/uL (0.0-0.8); Eosinophils % 5.2 %; Hematocrit 36.9 % (42.0-52.0); Hemoglobin 11.4 g/dL (11.7-16.6); Lymphocytes # 2.6 10^3/uL (0.8-4.8); Lymphocytes % 26.8 %; Mean Corpuscular HGB Conc 30.9 g/dL (30.0-36.0); Mean Corpuscular Hemoglobin 26.4 pg (28.0-34.0); Mean Corpuscular Volume 85.4 fL (80-94); Monocytes # 1.1 10^3/uL (0.2-0.9); Monocytes % 11.8 %; Neutrophils # 5.23 10^3/uL (1.8-7.7); Nucleated Red Blood Cells % 0 %; Platelet Count 347 10^3/cmm (130-400); Red Blood Count 4.32 10^6/uL (4.1-5.3); Red Cell Distribution Width 13.3 % (12.1-15.1); White Blood Count 9.5 10^3/uL (4.0-10.0)
[2020-04-10 00:03] VITALS: BP 149/81; PULSE 98; RESP 16; O2SAT 97
== END 2020-04-10 00:03 | disposition home or self-care (01) ==
PROVIDERS: Emergency Provider Emergency Medicine; PCP Family Medicine
DX: L03.031 Cellulitis of right toe (principal); Z79.82 Long term (current) use of aspirin; Z79.899 Other long term (current) drug therapy; E11.22 Type 2 diabetes mellitus with diabetic chronic kidney disease; I12.9 Hypertensive chronic kidney disease with stage 1 through stage 4 chronic kidney disease, or unspecified chronic kidney disease; N18.30 Chronic kidney disease, stage 3 unspecified; E78.5 Hyperlipidemia, unspecified; Z85.528 Personal history of other malignant neoplasm of kidney; Z90.5 Acquired absence of kidney; E11.621 Type 2 diabetes mellitus with foot ulcer; L97.512 Non-pressure chronic ulcer of other part of right foot with fat layer exposed
CPT/HCPCS: 12345; 73630; 85025; 96365; 99282; 99283; G0463; J3370; J7050

== ENCOUNTER 2020-04-14 09:57 | Outpatient (CLI) | payer MEDICARE, SELFPAY ==
--- NOTE | 2020-04-14 10:03 | MR_ITS ---
WS: [id number] MRI RIGHT FOOT without CONTRAST. COMPARISON: 01/07/2013 MRI. Multiplanar, multisequence imaging is performed without contrast. Study was ordered with contrast. Taylor marques's GFR was 33 with prior history renal carcinoma and nephrectomy. At this time we have elected not to continue with contrast. History: Nonhealing ulcer first toe for one month. On the T1 sequences through the foot there is decreased signal intensity involving the majority dista l phalanx first toe and also the adjacent proximal phalanx. On the STIR and T2 sequences there is inc reased signal throughout the entire distal phalanx and the adjacent proximal phalanx. There is increa sed soft tissue edema surrounding the entire first toe. The remaining bones of the foot are negative for changes of edema or signal abnormalities. Incidental note is made of mild flattening of the normal arch of the foot. No soft tissue abscess. MR/MR foot RT wo con* [id number] IMPRESSION: 1. MRI RIGHT foot was performed without IV contrast. GFR was abnormal at 33. Taylor marques with a history of prior renal insufficiency and prior nephrectomy. 2. Abnormal signal consistent with edema throughout the entire distal phalanx of the first toe and a small portion of the adjacent proximal phalanx. These fi ndings are highly suspicious for osteomyelitis but cannot confirm without IV co ntrast. New finding since the prior study from 2012.
[2020-04-14 11:40] LABS: Blood Urea Nitrogen 35 mg/dL (8-23); Glomerular Filtration Rate 32.4 mL/min (90-130)
== END 2020-04-14 09:58 | disposition home or self-care (01) ==
LOC: RADWPI 10:01
PROVIDERS: PCP Family Medicine; Visit Provider Thoracic Surgery (Cardiothoracic Vascular Surgery)
DX: E11.621 Type 2 diabetes mellitus with foot ulcer (principal)
CPT/HCPCS: 73718; 82565; 84520

== ENCOUNTER 2020-04-15 09:02 | Outpatient (CLI) | payer MEDICARE, SELFPAY | END 2020-04-15 09:03 | disposition home or self-care (01) | LOC: WOUND 09:03 | PROVIDERS: PCP Family Medicine; Visit Provider Thoracic Surgery (Cardiothoracic Vascular Surgery) | DX: E11.621 Type 2 diabetes mellitus with foot ulcer (principal); L97.512 Non-pressure chronic ulcer of other part of right foot with fat layer exposed | CPT/HCPCS: 11042 ==

== ENCOUNTER 2020-04-15 11:42 | Outpatient (CLI) | payer MEDICARE, SELFPAY | END 2020-04-15 11:43 | disposition home or self-care (01) | LOC: LAB 01-14 11:05 | PROVIDERS: PCP Family Medicine; Visit Provider Internal Medicine Nephrology | DX: N18.30 Chronic kidney disease, stage 3 unspecified (principal) | CPT/HCPCS: 80069; 82043; 82306; 82310; 83970; 85025 ==

== ENCOUNTER 2020-04-22 09:00 | Outpatient (CLI) | payer MEDICARE, SELFPAY | END 2020-04-22 09:01 | disposition home or self-care (01) | LOC: WOUND 09:03 | PROVIDERS: PCP Family Medicine; Visit Provider Thoracic Surgery (Cardiothoracic Vascular Surgery) | DX: E11.621 Type 2 diabetes mellitus with foot ulcer (principal); L97.512 Non-pressure chronic ulcer of other part of right foot with fat layer exposed | CPT/HCPCS: 11042 ==

== ENCOUNTER → 2020-04-23 10:01 | Day surgery (SDC) | payer MEDICARE, SELFPAY ==
--- NOTE | 2020-04-23 11:04 | XR_ITS ---
WS: [id number] PORTABLE CHEST HISTORY: POST PICC PLACEMENT COMPARISON: 03/06/2020. RIGHT PICC line has been inserted with tip in the mid SVC. No complications. Lungs are clear and well expanded. No pleural effusion or pneumothorax. Cardiac size: Normal. Mediastinum/Aorta: Normal mediastinum. No osseous abnormality seen. XR/XR chest 1V portable [id number] IMPRESSION: Satisfactory insertion RIGHT PICC line.
[2020-04-23 12:05] VITALS: BMI 30.2
[2020-04-23 12:21] LABS: Basophils # 0.1 10^3/uL (0.0-0.1); Basophils % 0.9 %; Eosinophils # 0.3 10^3/uL (0.0-0.8); Eosinophils % 3.6 %; Hematocrit 35.4 % (42.0-52.0); Hemoglobin 11.1 g/dL (11.7-16.6); Lymphocytes # 2.3 10^3/uL (0.8-4.8); Lymphocytes % 33.2 %; Mean Corpuscular HGB Conc 31.4 g/dL (30.0-36.0); Mean Corpuscular Hemoglobin 26.1 pg (28.0-34.0); Mean Corpuscular Volume 83.1 fL (80-94); Mean Platelet Volume 10.1 fL (7.4-10.4); Monocytes # 0.8 10^3/uL (0.2-0.9); Monocytes % 11.1 %; Neutrophils # 3.55 10^3/uL (1.8-7.7); Neutrophils % 51.1 %; Nucleated Red Blood Cells % 0 %; Platelet Count 146 10^3/cmm (130-400); Red Blood Count 4.26 10^6/uL (4.1-5.3); Red Cell Distribution Width 13.4 % (12.1-15.1)
[2020-04-23 12:41] LABS: Blood Urea Nitrogen 22 mg/dL (8-23); Calcium 8.8 mg/dL (8.5-10.5); Carbon Dioxide 25 mmol/L (22-29); Chloride 105 mmol/L (98-107); Estmated Average Glucose 197; Glomerular Filtration Rate 41.3 mL/min (90-130); Glucose 66 mg/dL (65-115); Hemoglobin A1C 8.5 % (4.0-6.0); Osmolality Calculated 290 mOsm/kg (285-295); Sodium 139 mmol/L (136-145)
[2020-04-23 12:42] LABS: Anion Gap 13.3 (5-19); Potassium 4.3 mmol/L (3.5-5.1)
[2020-04-23] MEDS: vancomycin 1,500 MG/300 ML PIGGYBACK 200 MG IV (12:47)
[2020-04-23 13:02] VITALS: BP 131/80; PULSE 111; RESP 18; TEMP 36.3; O2SAT 98
[2020-04-23 13:36] LABS: Erythrocyte Sedimentation Rate 44 mm/hr (0-10)
--- NOTE | 2020-04-23 14:18 | ECG_ITS ---
[facility] Test Date: 2020-04-23 Pat Name: Fredi Mccarthy Department: Room: Gender: Male Bosom Presser: VEENA CHAENLB: 1960 Requested By: Scar Belle Order Number: [id number] Barbara MD: JUAN SHEEHAN Measurements Intervals Blount Rate: 107 P: 44 DE: 140 QRS: -9 QRSD: 82 T: 51 QT: 319 QTc: 427 Interpretive Statements SINUS TACHYCARDIA ABNORMAL RHYTHM ECG Compared to ECG 05/12/2016 15:35:07 No significant changes Electronically Signed On 04-23-2020 18:01:18 BARKEEP by JUAN SHEEHAN [email or web address]
--- NOTE | 2020-04-23 14:19 | XR_ITS ---
WS: [id number] Chest 2 views, 04/23/2020, 1441 hours Clinical Data: RULE OUT BULLOUS DISEASE Comparison: Portable chest, today, 1134 hours Findings: No nodules, masses or effusions are seen. The heart is normal. The pulmonary vascularity is not increased. No pneumonia or pneumothorax is seen. The right PICC line remains in good position. T here is no bullous emphysematous disease present. XR/XR chest 2V* [id number] Impression: Negative chest.
== END ==
PROVIDERS: PCP Family Medicine; Visit Provider Thoracic Surgery (Cardiothoracic Vascular Surgery)
DX: M86.9 Osteomyelitis, unspecified (principal)
CPT/HCPCS: 36569; 36592; 71045; 71046; 80048; 83036; 85025; 85651; 86141; 93005; 96365; J3370

== ENCOUNTER 2020-04-28 08:25 | Outpatient (CLI) | payer MEDICARE, SELFPAY | END 2020-04-28 08:26 | disposition home or self-care (01) | LOC: WOUND 08:26 | PROVIDERS: PCP Family Medicine; Visit Provider Thoracic Surgery (Cardiothoracic Vascular Surgery) | DX: E11.621 Type 2 diabetes mellitus with foot ulcer (principal); L97.512 Non-pressure chronic ulcer of other part of right foot with fat layer exposed; M86.8X8 Other osteomyelitis, other site | CPT/HCPCS: 96365; 96366; G0277; J3370 ==

== ENCOUNTER 2020-04-29 07:56 | Outpatient (CLI) | payer MEDICARE, SELFPAY ==
--- NOTE | 2020-04-29 11:16 | XR_ITS ---
WS: [id number] Exam: XR chest 1V [id number] Date/Time of Exam: 04/29/2020 11:16 AM Reason For Exam: PICC PLACEMENT CHECK Comparison 04/23/2020. A right-sided PICC line is been placed and appears to end in the lower one third of the SVC in good p osition. The lungs are clear and fully expanded. Normal cardiomediastinal structures and regional bon y elements. XR/XR chest 1V [id number] IMPRESSION: 1. Right-sided PICC line in satisfactory location. 2. No acute cardiopulmonary finding.
--- NOTE | 2020-04-29 11:16 | USCV_ITS ---
Fredi Mccarthy Age: 60 Gender: M : 1960 Exam Date: 04/29/2020 11:26 Ordering Phys: Scar Belle MD (Andy) ([email or web address] Technologist: Caryl Syed [place]am Location[place] [facility] [place]: PAIN REDNESS SWELLING HISTORY: Upper extremity pain. Upper extremity swelling. PROCEDURES: Venous duplex imaging was performed in only the right upper extremity. The following venous structures were evaluated: internal jugular vein, subclavian vein, axillary vein, and brachial veins. In addition, the basilic vein, cephalic vein, radial vein, and ulnar vein. Serial compression, augmentation maneuvers, and spectral Doppler flow evaluation were performed. FINDINGS: Normal 2-D, color Doppler and phasicity noted in ther right upper extremity venous system extending from the right internal jugular vein through the main forearm. No thrombosis or occlusion noted. PICC line seen in the RIGHT basilic CONCLUSIONS No evidence of thrombus of the right upper extremity veins. PICC line right basilic vein Kevin Coleman MD (Electronically Signed) Final Date: 29 April 2020 14:15 S
== END 2020-04-29 07:57 | disposition home or self-care (01) ==
PROVIDERS: PCP Family Medicine; Visit Provider Thoracic Surgery (Cardiothoracic Vascular Surgery)
DX: E11.621 Type 2 diabetes mellitus with foot ulcer (principal); L97.512 Non-pressure chronic ulcer of other part of right foot with fat layer exposed; M79.601 Pain in right arm
CPT/HCPCS: 11042; 71045; 93971; 96365; G0277; J3370

== ENCOUNTER 2020-04-30 07:51 | Outpatient (CLI) | payer MEDICARE, SELFPAY | END 2020-04-30 07:52 | disposition home or self-care (01) | LOC: WOUND 07:53 | PROVIDERS: PCP Family Medicine; Visit Provider Nurse Practitioner Family | DX: E11.621 Type 2 diabetes mellitus with foot ulcer (principal); L97.516 Non-pressure chronic ulcer of other part of right foot with bone involvement without evidence of necrosis | CPT/HCPCS: G0277 ==

== ENCOUNTER 2020-04-30 10:26 | Outpatient (RCR) | payer MEDICARE, SELFPAY ==
[2020-04-24] MEDS: vancomycin 1,500 MG/300 ML PIGGYBACK 200 MG IV (11:23)
[2020-04-24 11:24] VITALS: BP 107/80; PULSE 118; RESP 20; TEMP 36.2; O2SAT 99
[2020-04-24 11:26] VITALS: BMI 30.1
[2020-04-25 10:20] VITALS: BP 99/64; PULSE 112; RESP 18; TEMP 36.3; O2SAT 100
[2020-04-25] MEDS: vancomycin 1,500 MG/300 ML PIGGYBACK 200 MG IV (10:20)
[2020-04-26] MEDS: vancomycin 1,500 MG/300 ML PIGGYBACK 200 MG IV (10:20)
[2020-04-26 10:22] VITALS: BP 124/74; PULSE 118; RESP 18; TEMP 36.4; O2SAT 98
[2020-04-27 10:45] VITALS: BP 122/71; PULSE 98; RESP 18; TEMP 36.8; O2SAT 99
[2020-04-27] MEDS: vancomycin 1,500 MG/300 ML PIGGYBACK 200 MG IV (11:03)
[2020-04-28 11:06] VITALS: BP 138/76; PULSE 100; RESP 18; TEMP 36.6; O2SAT 98
[2020-04-28] MEDS: vancomycin 1,500 MG/300 ML PIGGYBACK 200 MG IV (11:10)
[2020-04-29] MEDS: vancomycin 1,500 MG/300 ML PIGGYBACK 200 MG IV (12:16)
[2020-04-29 12:25] VITALS: BP 120/71; PULSE 119; RESP 18; TEMP 36.1; O2SAT 97
--- NOTE | 2020-04-29 13:32 | PC.NURSE ---
1230 Pt states that during treatment at [facility] Wound Care today, right axilla above right PICC line noted to be slightly red. Dr. Belle ordered a chest x-ray and venous duplex US of right arm prior to infusion. Results called to Dr. Belle. Orders given to proceed with Vancomycin infusion.
[2020-04-30] MEDS: vancomycin 1,500 MG/300 ML PIGGYBACK 200 MG IV (10:52)
[2020-04-30 11:00] VITALS: BP 120/74; PULSE 99; RESP 16; TEMP 36.5; O2SAT 100
[2020-04-30 11:09] LABS: Anion Gap 11.8 (5-19); Blood Urea Nitrogen 19 mg/dL (8-23); Calcium 8.5 mg/dL (8.5-10.5); Carbon Dioxide 25 mmol/L (22-29); Chloride 105 mmol/L (98-107); Glomerular Filtration Rate 41.3 mL/min (90-130); Glucose 231 mg/dL (65-115); Osmolality Calculated 294 mOsm/kg (285-295); Potassium 4.8 mmol/L (3.5-5.1); Sodium 137 mmol/L (136-145)
[2020-04-30 11:23] LABS: Vancomycin Trough 23.8 ug/mL (10-15)
--- NOTE | 2020-04-30 12:28 | PC.NURSE ---
1215 BMP and Vanc trough drawn per pharmacy request. Vanc trough at 23.8. Pt to skip tomorrow's dose and resume with lower dose on Monday per pharmacy dosing.
[2020-05-02] MEDS: vancomycin 1,250 MG/250 ML PIGGYBACK 250 MG IV (10:45)
[2020-05-02 12:04] VITALS: BP 152/78; PULSE 107; RESP 18; TEMP 36.1; O2SAT 98
[2020-05-03] MEDS: vancomycin 1,250 MG/250 ML PIGGYBACK 225 MG IV (10:36)
[2020-05-03 10:37] VITALS: BP 145/75; PULSE 104; RESP 20; TEMP 36.3; O2SAT 98
== END 2020-05-03 23:59 | disposition home or self-care (01) ==
LOC: OPS 10:26
PROVIDERS: PCP Family Medicine; Visit Provider Thoracic Surgery (Cardiothoracic Vascular Surgery)
DX: M86.8X8 Other osteomyelitis, other site (principal); E11.621 Type 2 diabetes mellitus with foot ulcer; L97.512 Non-pressure chronic ulcer of other part of right foot with fat layer exposed; M79.601 Pain in right arm
CPT/HCPCS: 36415; 36592; 80048; 80202; 96365; 96366; J3370

== ENCOUNTER 2020-05-01 08:09 | Outpatient (CLI) | payer MEDICARE, SELFPAY | END 2020-05-01 08:10 | disposition home or self-care (01) | LOC: WOUND 08:10 | PROVIDERS: PCP Family Medicine; Visit Provider Surgery | DX: E11.621 Type 2 diabetes mellitus with foot ulcer (principal); L97.516 Non-pressure chronic ulcer of other part of right foot with bone involvement without evidence of necrosis | CPT/HCPCS: G0277 ==

== ENCOUNTER 2020-05-04 07:51 | Outpatient (CLI) | payer MEDICARE, SELFPAY | END 2020-05-04 07:52 | disposition home or self-care (01) | LOC: WOUND 07:52 | PROVIDERS: PCP Family Medicine; Visit Provider Nurse Practitioner Family | DX: E11.621 Type 2 diabetes mellitus with foot ulcer (principal); L97.516 Non-pressure chronic ulcer of other part of right foot with bone involvement without evidence of necrosis; M86.9 Osteomyelitis, unspecified; Z46.89 Encounter for fitting and adjustment of other specified devices; S52.502D Unspecified fracture of the lower end of left radius, subsequent encounter for closed fracture with routine healing; X58.XXXD Exposure to other specified factors, subsequent encounter | CPT/HCPCS: 36592; 80048; 80202; 82040; 96365; G0277; J3370 ==

== ENCOUNTER 2020-05-05 08:00 | Outpatient (CLI) | payer MEDICARE, SELFPAY | END 2020-05-05 08:01 | disposition home or self-care (01) | LOC: WOUND 07-08 14:28 | PROVIDERS: PCP Family Medicine; Visit Provider Thoracic Surgery (Cardiothoracic Vascular Surgery) | DX: E11.621 Type 2 diabetes mellitus with foot ulcer (principal); L97.516 Non-pressure chronic ulcer of other part of right foot with bone involvement without evidence of necrosis | CPT/HCPCS: G0277 ==

== ENCOUNTER 2020-05-06 07:50 | Outpatient (CLI) | payer MEDICARE, SELFPAY ==
[2020-05-06 12:44] LABS: Prealbumin 23.5 mg/dL (20-40)
== END 2020-05-06 07:51 | disposition home or self-care (01) ==
LOC: WOUND 07:51
PROVIDERS: PCP Family Medicine; Visit Provider Thoracic Surgery (Cardiothoracic Vascular Surgery)
DX: E11.621 Type 2 diabetes mellitus with foot ulcer (principal); L97.522 Non-pressure chronic ulcer of other part of left foot with fat layer exposed; M86.9 Osteomyelitis, unspecified; Z46.89 Encounter for fitting and adjustment of other specified devices; S52.502D Unspecified fracture of the lower end of left radius, subsequent encounter for closed fracture with routine healing; X58.XXXD Exposure to other specified factors, subsequent encounter
CPT/HCPCS: 11042; 36592; 84134; 96365; G0277; J3370; J7050

== ENCOUNTER 2020-05-08 08:09 | Outpatient (CLI) | payer MEDICARE, SELFPAY | END 2020-05-08 08:10 | disposition home or self-care (01) | LOC: WOUND 08:21 | PROVIDERS: PCP Family Medicine; Visit Provider Surgery | DX: E11.621 Type 2 diabetes mellitus with foot ulcer (principal); L97.516 Non-pressure chronic ulcer of other part of right foot with bone involvement without evidence of necrosis; M86.9 Osteomyelitis, unspecified; Z46.89 Encounter for fitting and adjustment of other specified devices; S52.502D Unspecified fracture of the lower end of left radius, subsequent encounter for closed fracture with routine healing; X58.XXXD Exposure to other specified factors, subsequent encounter | CPT/HCPCS: 96365; G0277; J3370; J7050 ==

== ENCOUNTER 2020-05-11 07:45 | Outpatient (CLI) | payer MEDICARE, SELFPAY | END 2020-05-11 07:46 | disposition home or self-care (01) | LOC: WOUND 07:45 | PROVIDERS: PCP Family Medicine; Visit Provider Nurse Practitioner Family | DX: E11.621 Type 2 diabetes mellitus with foot ulcer (principal); L97.516 Non-pressure chronic ulcer of other part of right foot with bone involvement without evidence of necrosis | CPT/HCPCS: G0277 ==

== ENCOUNTER 2020-05-12 08:02 | Outpatient (CLI) | payer MEDICARE, SELFPAY | END 2020-05-12 08:03 | disposition home or self-care (01) | LOC: WOUND 08:08 | PROVIDERS: PCP Family Medicine; Visit Provider Thoracic Surgery (Cardiothoracic Vascular Surgery) | DX: E11.621 Type 2 diabetes mellitus with foot ulcer (principal); L97.516 Non-pressure chronic ulcer of other part of right foot with bone involvement without evidence of necrosis | CPT/HCPCS: G0277 ==

== ENCOUNTER 2020-05-13 07:50 | Outpatient (CLI) | payer MEDICARE, SELFPAY | END 2020-05-13 07:51 | disposition home or self-care (01) | LOC: WOUND 07:51 | PROVIDERS: PCP Family Medicine; Visit Provider Thoracic Surgery (Cardiothoracic Vascular Surgery) | DX: E11.621 Type 2 diabetes mellitus with foot ulcer (principal); L97.516 Non-pressure chronic ulcer of other part of right foot with bone involvement without evidence of necrosis | CPT/HCPCS: G0277 ==

== ENCOUNTER 2020-05-14 07:53 | Outpatient (CLI) | payer MEDICARE, SELFPAY | END 2020-05-14 07:54 | disposition home or self-care (01) | LOC: WOUND 07:54 | PROVIDERS: PCP Family Medicine; Visit Provider Nurse Practitioner Family | DX: E11.621 Type 2 diabetes mellitus with foot ulcer (principal); L97.516 Non-pressure chronic ulcer of other part of right foot with bone involvement without evidence of necrosis | CPT/HCPCS: G0277 ==

== ENCOUNTER 2020-05-15 07:57 | Outpatient (CLI) | payer MEDICARE, SELFPAY | END 2020-05-15 07:58 | disposition home or self-care (01) | LOC: WOUND 07:57 | PROVIDERS: PCP Family Medicine; Visit Provider Surgery | DX: E11.621 Type 2 diabetes mellitus with foot ulcer (principal); L97.516 Non-pressure chronic ulcer of other part of right foot with bone involvement without evidence of necrosis; M86.9 Osteomyelitis, unspecified; Z46.89 Encounter for fitting and adjustment of other specified devices; S52.502D Unspecified fracture of the lower end of left radius, subsequent encounter for closed fracture with routine healing; X58.XXXD Exposure to other specified factors, subsequent encounter | CPT/HCPCS: 96365; G0277; J3370; J7050 ==

== ENCOUNTER 2020-05-19 13:04 | Outpatient (CLI) | payer MEDICARE, SELFPAY | END 2020-05-19 13:05 | disposition home or self-care (01) | LOC: WOUND 13:05 | PROVIDERS: PCP Family Medicine; Visit Provider Thoracic Surgery (Cardiothoracic Vascular Surgery) | DX: E11.621 Type 2 diabetes mellitus with foot ulcer (principal); L97.516 Non-pressure chronic ulcer of other part of right foot with bone involvement without evidence of necrosis; M86.9 Osteomyelitis, unspecified; Z46.89 Encounter for fitting and adjustment of other specified devices; S52.502D Unspecified fracture of the lower end of left radius, subsequent encounter for closed fracture with routine healing; X58.XXXD Exposure to other specified factors, subsequent encounter | CPT/HCPCS: 36416; 82962; 96365; G0277; J3370; J7050 ==

== ENCOUNTER 2020-05-21 07:41 | Outpatient (CLI) | payer MEDICARE, SELFPAY | END 2020-05-21 07:42 | disposition home or self-care (01) | LOC: WOUND 07:42 | PROVIDERS: PCP Family Medicine; Visit Provider Nurse Practitioner Family | DX: E11.621 Type 2 diabetes mellitus with foot ulcer (principal); L97.516 Non-pressure chronic ulcer of other part of right foot with bone involvement without evidence of necrosis; M86.9 Osteomyelitis, unspecified; Z46.89 Encounter for fitting and adjustment of other specified devices; S52.502D Unspecified fracture of the lower end of left radius, subsequent encounter for closed fracture with routine healing; X58.XXXD Exposure to other specified factors, subsequent encounter | CPT/HCPCS: 96365; G0277; J3370; J7050 ==

== ENCOUNTER 2020-05-22 07:54 | Outpatient (CLI) | payer MEDICARE, SELFPAY | END 2020-05-22 07:55 | disposition home or self-care (01) | LOC: WOUND 07:58 | PROVIDERS: PCP Family Medicine; Visit Provider Surgery | DX: E11.621 Type 2 diabetes mellitus with foot ulcer (principal); L97.512 Non-pressure chronic ulcer of other part of right foot with fat layer exposed; M86.171 Other acute osteomyelitis, right ankle and foot | CPT/HCPCS: 99212 ==

== ENCOUNTER 2020-05-26 07:53 | Outpatient (CLI) | payer MEDICARE, SELFPAY | END 2020-05-26 07:54 | disposition home or self-care (01) | LOC: WOUND 07:54 | PROVIDERS: PCP Family Medicine; Visit Provider Thoracic Surgery (Cardiothoracic Vascular Surgery) | DX: Z09 Encounter for follow-up examination after completed treatment for conditions other than malignant neoplasm (principal) | CPT/HCPCS: 96365; 99212; J3370; J7050 ==

== ENCOUNTER 2020-05-29 07:38 | Outpatient (RCR) | payer MEDICARE, SELFPAY ==
[2020-05-04] MEDS: vancomycin 1,250 MG/250 ML PIGGYBACK 200 MG IV (10:20)
[2020-05-04 11:43] LABS: Albumin Level 3.9 g/dL (3.5-5.2); Anion Gap 13.5 (5-19); Blood Urea Nitrogen 19 mg/dL (8-23); Calcium 9.7 mg/dL (8.5-10.5); Carbon Dioxide 25 mmol/L (22-29); Chloride 103 mmol/L (98-107); Glomerular Filtration Rate 44.3 mL/min (90-130); Glucose 137 mg/dL (65-115); Osmolality Calculated 288 mOsm/kg (285-295); Potassium 4.5 mmol/L (3.5-5.1); Sodium 137 mmol/L (136-145)
[2020-05-04 11:47] LABS: Vancomycin Trough 20.7 ug/mL (10-15)
[2020-05-04 13:29] VITALS: BP 117/77; PULSE 96; RESP 18; TEMP 36.3; O2SAT 100
--- NOTE | 2020-05-04 13:33 | SUR.PREOP ---
skin under transparent dressing was broke out into a rash with red bumps. patient reported, sometimes it feels like my arm is on fire there. Removed dressing and cleaned thoroughly with alcohol swabs. replaced statlock. covered with nonstick telfa and paper tape. patient requested no coban, he prefers to cover with tube sock from home. patient has coban and paper tape at home if needed. pt made aware to keep dry.
[2020-05-04 13:54] VITALS: BP 110/64; PULSE 86; RESP 18; TEMP 36.6; O2SAT 100
[2020-05-05 10:35] VITALS: BP 103/58; PULSE 98; RESP 18; TEMP 36.5; O2SAT 100
[2020-05-05] MEDS: vancomycin 1,000 MG in sodium chloride 0.9% 250 ML 250 MG IV (10:40)
[2020-05-05 10:50] VITALS: BP 103/58; PULSE 98; RESP 18; TEMP 36.5; O2SAT 100
[2020-05-06 11:38] VITALS: BP 123/77; PULSE 101; RESP 18; TEMP 36.2; O2SAT 100
[2020-05-06] MEDS: vancomycin 1,000 MG in sodium chloride 0.9% 250 ML 250 MG IV (12:30)
--- NOTE | 2020-05-06 13:52 | PC.NURSE ---
1340 Dressing to right PICC line change using sterile technique. Area cleansed with chlorhexidne and telfa applied over insertion site. Secured with paper tape. Redness improving. Pt states the site is no longer itching or burning since using the telfa and tape.
[2020-05-07 09:00] VITALS: BP 107/75; PULSE 110; RESP 20; TEMP 36.5; O2SAT 99
--- NOTE | 2020-05-07 09:02 | SUR.PHASEII ---
dressing change to right picc line. Patient skin red from the tagaderm. Cleaned and placed tefla over picc with paper tape.l Patient tolerated welll.
[2020-05-07] MEDS: vancomycin 1,000 MG in sodium chloride 0.9% 250 ML 250 MG IV (09:25)
[2020-05-08] MEDS: vancomycin 1,000 MG in sodium chloride 0.9% 250 ML 250 MG IV (11:06)
[2020-05-08 11:12] VITALS: BP 148/85; PULSE 82; RESP 18; TEMP 36.3; O2SAT 100
[2020-05-09 09:58] VITALS: BP 143/85; PULSE 95; RESP 18; TEMP 36.4; O2SAT 98
[2020-05-09] MEDS: vancomycin 1,000 MG in sodium chloride 0.9% 250 ML 250 MG IV (10:10)
[2020-05-10] MEDS: vancomycin 1,000 MG in sodium chloride 0.9% 250 ML 250 MG IV (09:52)
[2020-05-10 10:09] VITALS: BP 140/80; PULSE 106; RESP 18; TEMP 36.6; O2SAT 100
[2020-05-11 10:35] VITALS: BP 147/100; PULSE 87; RESP 18; TEMP 36.4; O2SAT 100
[2020-05-11] MEDS: vancomycin 1,000 MG in sodium chloride 0.9% 250 ML 250 MG IV (10:49)
[2020-05-11 11:01] LABS: Anion Gap 11.4 (5-19); Blood Urea Nitrogen 26 mg/dL (8-23); Calcium 9.6 mg/dL (8.5-10.5); Carbon Dioxide 27 mmol/L (22-29); Chloride 106 mmol/L (98-107); Glomerular Filtration Rate 38.7 mL/min (90-130); Glucose 87 mg/dL (65-115); Osmolality Calculated 294 mOsm/kg (285-295); Potassium 4.4 mmol/L (3.5-5.1); Sodium 140 mmol/L (136-145)
[2020-05-11 11:11] LABS: Vancomycin Trough 18.8 ug/mL (10-15)
--- NOTE | 2020-05-11 11:57 | PC.NURSE ---
1150 PharmacistHayden, notified of Vanc trough of 18.8 and BUN and Creatinine results. Vancomycin 1000 mg IVPB to be continued at this time. Will consider drawing BMP earlier than next Monday. Pharmacy will keep nursing staff updated.
--- NOTE | 2020-05-11 12:05 | PC.NURSE ---
1035 Dressing to right PICC line changed using sterile techniques. Site very red and itchy. Area cleansed with chlorhexadine and prepped with skin prep. Sorbaview shield placed over site. Will continue to monitor.
[2020-05-12 11:10] VITALS: BP 142/76; PULSE 94; RESP 18; TEMP 36.3; O2SAT 99
--- NOTE | 2020-05-12 11:15 | SUR.OPER ---
32 cm right arm circumference
[2020-05-12] MEDS: vancomycin 1,000 MG in sodium chloride 0.9% 250 ML 250 MG IV (11:30)
--- NOTE | 2020-05-12 12:52 | SUR.OPER ---
PICC line flushed with 20ml of saline flush.Patient tolerated well.
[2020-05-13] MEDS: vancomycin 1,000 MG in sodium chloride 0.9% 250 ML 250 MG IV (10:45)
[2020-05-13 11:09] LABS: Basophils # 0.1 10^3/uL (0.0-0.1); Basophils % 1.4 %; Eosinophils # 0.6 10^3/uL (0.0-0.8); Eosinophils % 8.4 %; Hematocrit 37.3 % (42.0-52.0); Hemoglobin 11.5 g/dL (11.7-16.6); Lymphocytes # 2.3 10^3/uL (0.8-4.8); Lymphocytes % 33.5 %; Mean Corpuscular HGB Conc 30.8 g/dL (30.0-36.0); Mean Corpuscular Hemoglobin 26.5 pg (28.0-34.0); Mean Corpuscular Volume 85.9 fL (80-94); Mean Platelet Volume 11.1 fL (7.4-10.4); Monocytes # 0.8 10^3/uL (0.2-0.9); Monocytes % 11.3 %; Neutrophils # 3.14 10^3/uL (1.8-7.7); Nucleated Red Blood Cells % 0 %; Platelet Count 234 10^3/cmm (130-400); Red Blood Count 4.34 10^6/uL (4.1-5.3); Red Cell Distribution Width 14.5 % (12.1-15.1)
[2020-05-13 11:12] VITALS: BP 130/84; PULSE 86; RESP 18; TEMP 36.5; O2SAT 100
[2020-05-13 11:17] LABS: Blood Urea Nitrogen 26 mg/dL (8-23); Glomerular Filtration Rate 38.7 mL/min (90-130)
--- NOTE | 2020-05-14 08:45 | PC.NURSE ---
0845 PharmacistHayden, notified of patients BUN and creatinine levels from 05/13/20. No change in Vancomycin dose at this time.
[2020-05-14] MEDS: vancomycin 1,000 MG in sodium chloride 0.9% 250 ML 250 MG IV (10:51)
[2020-05-14 11:00] VITALS: BP 150/97; PULSE 105; RESP 18; TEMP 36.3; O2SAT 100
--- NOTE | 2020-05-14 11:01 | PC.NURSE ---
PICC dressing to right upper arm changed using sterile technique. Erythema much less after switching to Sorbashield dressing. Areas of redness drying and healing. Pt states itching is much better. Will continue to monitor.
[2020-05-15] MEDS: vancomycin 1,000 MG in sodium chloride 0.9% 250 ML 250 MG IV (10:47)
[2020-05-15 10:49] VITALS: BP 121/80; PULSE 90; RESP 18; TEMP 36.5; O2SAT 99
[2020-05-16] MEDS: vancomycin 1,000 MG in sodium chloride 0.9% 250 ML 250 MG IV (10:10)
[2020-05-16 10:19] VITALS: BP 131/73; PULSE 103; RESP 18; TEMP 36.6; O2SAT 99
[2020-05-17] MEDS: vancomycin 1,000 MG in sodium chloride 0.9% 250 ML 250 MG IV (10:05)
[2020-05-17 10:14] VITALS: BP 121/73; PULSE 101; RESP 18; TEMP 36.3; O2SAT 100
[2020-05-18 10:25] VITALS: BP 117/71; PULSE 96; RESP 18; TEMP 36.6; O2SAT 98
[2020-05-18] MEDS: vancomycin 1,000 MG in sodium chloride 0.9% 250 ML 250 MG IV (10:37)
[2020-05-18 11:04] LABS: Anion Gap 12.3 (5-19); Blood Urea Nitrogen 25 mg/dL (8-23); Carbon Dioxide 25 mmol/L (22-29); Chloride 102 mmol/L (98-107); Glomerular Filtration Rate 36.3 mL/min (90-130); Glucose 244 mg/dL (65-115); Osmolality Calculated 292 mOsm/kg (285-295); Potassium 4.3 mmol/L (3.5-5.1); Sodium 135 mmol/L (136-145)
[2020-05-18 11:39] LABS: Vancomycin Trough 18.5 ug/mL (10-15)
[2020-05-19] MEDS: vancomycin 1,000 MG in sodium chloride 0.9% 250 ML 250 MG IV (10:47)
[2020-05-19 10:48] VITALS: BP 88/60; PULSE 105; RESP 16; TEMP 36.4; O2SAT 100
--- NOTE | 2020-05-19 11:05 | PC.NURSE ---
1000 Pharmacy notified of patients BUN, Creatnine, and Vanc trough levels drawn 05/18/20. No change in Vanc dosing at this time.
[2020-05-19 16:33] LABS: Glucose Point of Care 109 mg/dL (70-110)
[2020-05-20] MEDS: vancomycin 1,000 MG in sodium chloride 0.9% 250 ML 250 MG IV (11:00)
[2020-05-20 12:11] VITALS: BP 100/67; PULSE 98; RESP 18; TEMP 36.6; O2SAT 98
[2020-05-21] MEDS: vancomycin 1,000 MG in sodium chloride 0.9% 250 ML 250 MG IV (10:25)
[2020-05-21 10:43] VITALS: BP 133/86; PULSE 94; RESP 18; TEMP 36.2; O2SAT 100
--- NOTE | 2020-05-21 12:02 | SUR.OPER ---
site cleaned with clora prep.new dressing applied and stat lock applied.flushed with 20 ml of saline flush. patient tolerated well.
[2020-05-22] MEDS: vancomycin 1,000 MG in sodium chloride 0.9% 250 ML 250 MG IV (09:43)
[2020-05-22 09:54] VITALS: BP 144/76; PULSE 97; RESP 18; TEMP 36.3; O2SAT 99
--- NOTE | 2020-05-22 10:16 | PC.NURSE ---
pt picc line site has become very red, itchy, weeping. this started last night. Sorbaview dressing is only dressing so far that has been asymptomatic, all others have caused raised redness and itching, rash. sorbaview was removed yesterday because it had been in place for 8 days. Island dressing was applied. patient came back yesterday afternoon to have it changed because it was itching more. Silicone foam dressing was applied. Patient went to ER last night for the itching of that dressing. They removed it and applied sterile 4x4, keisha. Patient was seen in wound care this morning and 4x4 was soaked from weeping. They reapplied new 4x4 and keisha. Order received here for YOLIS to be applied to incision site of Picc line, 4x4 dry gauze placed over, kerlix, keisha wrap to be applied sterile q24h.
[2020-05-22] MEDS: neomycin-poly-bacitracin oint 0.9 gm Pkt 1 APPLIC TOPICAL (10:19)
[2020-05-23 10:06] VITALS: BP 124/69; PULSE 105; RESP 18; TEMP 36.7; O2SAT 95
[2020-05-23] MEDS: vancomycin 1,000 MG in sodium chloride 0.9% 250 ML 250 MG IV (10:15)
[2020-05-23] MEDS: neomycin-poly-bacitracin oint 0.9 gm Pkt 1 APPLIC TOPICAL (11:00)
[2020-05-24 10:42] VITALS: BP 111/73; PULSE 100; RESP 18; TEMP 36.4; O2SAT 100
[2020-05-24] MEDS: vancomycin 1,000 MG in sodium chloride 0.9% 250 ML 250 MG IV (10:50)
[2020-05-25] MEDS: vancomycin 1,000 MG in sodium chloride 0.9% 250 ML 250 MG IV (10:22)
[2020-05-25 11:22] LABS: Vancomycin Trough 20.8 ug/mL (10-15)
[2020-05-25] MEDS: neomycin-poly-bacitracin oint 0.9 gm Pkt 1 APPLIC TOPICAL (11:25)
[2020-05-25 11:28] VITALS: BP 113/78; PULSE 100; RESP 18; TEMP 36.5; O2SAT 99
--- NOTE | 2020-05-25 11:30 | PC.NURSE ---
Pharmacist, Timothy, notified of Vanc trough 20.8 and BUN/Creatnine levels. Vancomycin to be decreased to 750 mg IVPB daily starting 05/26/20.
[2020-05-25 12:15] LABS: Anion Gap 15.3 (5-19); Blood Urea Nitrogen 21 mg/dL (8-23); Calcium 8.9 mg/dL (8.5-10.5); Carbon Dioxide 22 mmol/L (22-29); Chloride 104 mmol/L (98-107); Glomerular Filtration Rate 36.3 mL/min (90-130); Glucose 246 mg/dL (65-115); Osmolality Calculated 295 mOsm/kg (285-295); Potassium 4.3 mmol/L (3.5-5.1); Sodium 137 mmol/L (136-145)
[2020-05-26] MEDS: vancomycin 750 MG in sodium chloride 0.9% 250 ML 250 MG IV (09:30)
[2020-05-26 09:52] VITALS: BP 147/88; PULSE 105; RESP 18; TEMP 36.3; O2SAT 99
--- NOTE | 2020-05-26 09:55 | SUR.PREOP ---
patient request to wait on drsg change to picc line until our stat locks have come in.
[2020-05-27] MEDS: vancomycin 750 MG in sodium chloride 0.9% 250 ML 250 MG IV (08:26)
[2020-05-27 08:32] VITALS: BP 141/116; PULSE 106; RESP 18; TEMP 36.1; O2SAT 100
--- NOTE | 2020-05-27 08:36 | PC.NURSE ---
Dressing changed to right PICC line using Sorbaview shield dressing. This dressing was placed on 05/26/20 as well. Significant improvement in redness, itching, and weeping noted. Pt tolerating this dressing very well.
[2020-05-28] MEDS: vancomycin 750 MG in sodium chloride 0.9% 250 ML 250 MG IV (07:57)
[2020-05-28 08:03] VITALS: BP 162/90; PULSE 97; RESP 18; TEMP 36.3; O2SAT 99
[2020-05-29 07:50] VITALS: BP 132/71; PULSE 100; RESP 16; TEMP 36.3; O2SAT 100
[2020-05-29] MEDS: vancomycin 750 MG in sodium chloride 0.9% 250 ML 250 MG IV (07:58)
[2020-05-30] MEDS: vancomycin 750 MG in sodium chloride 0.9% 250 ML 250 MG IV (08:03)
[2020-05-30 08:13] VITALS: BP 118/80; PULSE 106; RESP 18; TEMP 36.3; O2SAT 100
[2020-05-31] MEDS: vancomycin 750 MG in sodium chloride 0.9% 250 ML 250 MG IV (08:05)
[2020-05-31 08:19] VITALS: BP 131/77; PULSE 101; RESP 18; TEMP 36.7; O2SAT 100
== END 2020-05-31 23:59 | disposition home or self-care (01) ==
LOC: OPS 07:38
PROVIDERS: PCP Family Medicine; Visit Provider Thoracic Surgery (Cardiothoracic Vascular Surgery)
DX: E11.621 Type 2 diabetes mellitus with foot ulcer (principal); M86.9 Osteomyelitis, unspecified; Z46.89 Encounter for fitting and adjustment of other specified devices; S52.502D Unspecified fracture of the lower end of left radius, subsequent encounter for closed fracture with routine healing; X58.XXXD Exposure to other specified factors, subsequent encounter; L97.516 Non-pressure chronic ulcer of other part of right foot with bone involvement without evidence of necrosis
CPT/HCPCS: 15852; 36416; 36592; 80048; 80202; 82040; 82565; 82962; 84520; 85025; 96365; 97760; A4930; A6446; G0277; J3370; J7050; L3982

== ENCOUNTER 2020-06-02 07:52 | Outpatient (CLI) | payer MEDICARE, SELFPAY | END 2020-06-02 07:53 | disposition home or self-care (01) | LOC: WOUND 07:53 | PROVIDERS: PCP Family Medicine; Visit Provider Thoracic Surgery (Cardiothoracic Vascular Surgery) | DX: Z09 Encounter for follow-up examination after completed treatment for conditions other than malignant neoplasm (principal) | CPT/HCPCS: 99212 ==

== ENCOUNTER 2020-06-04 07:30 | Outpatient (RCR) | payer MEDICARE, SELFPAY ==
[2020-06-01] MEDS: vancomycin 750 MG in sodium chloride 0.9% 250 ML 333.3 MG IV (08:15)
[2020-06-01 08:49] VITALS: BMI 30.1
[2020-06-01 08:53] VITALS: BP 119/72; PULSE 108; RESP 18; TEMP 36.7; O2SAT 95
[2020-06-01 09:15] LABS: Anion Gap 12.1 (5-19); Blood Urea Nitrogen 19 mg/dL (8-23); Calcium 8.7 mg/dL (8.5-10.5); Carbon Dioxide 26 mmol/L (22-29); Chloride 107 mmol/L (98-107); Glomerular Filtration Rate 34.3 mL/min (90-130); Glucose 112 mg/dL (65-115); Osmolality Calculated 295 mOsm/kg (285-295); Potassium 4.1 mmol/L (3.5-5.1); Sodium 141 mmol/L (136-145)
[2020-06-02 08:46] VITALS: BP 134/78; PULSE 95; RESP 18; TEMP 36.1; O2SAT 100
[2020-06-02] MEDS: vancomycin 750 MG in sodium chloride 0.9% 250 ML 250 MG IV (09:02)
--- NOTE | 2020-06-02 09:03 | PC.NURSE ---
Vanc trough missed on Monday06/01/20. Carlos in Pharmacy notified at 0830. BUN and Creatinine result of 2.0 from 06/01/20 relayed to pharmacist as well. Pt last dose to be on , 06/04/20. Carlos said trough not needed if last dose is to be . Carlos called back at [address] Saucedo and a Vanc trough and additional BUN and Creatinine are to be drawn on Monday06/03/20. Pt PICC line to be pulled after last dose on in OPS per Dr. Saucedo.
[2020-06-03] MEDS: vancomycin 750 MG in sodium chloride 0.9% 250 ML 250 MG IV (08:14)
[2020-06-03 08:16] VITALS: BP 157/87; PULSE 95; RESP 18; TEMP 36.4; O2SAT 96
[2020-06-03 08:38] LABS: Anion Gap 10.4 (5-19); Blood Urea Nitrogen 19 mg/dL (8-23); Calcium 8.9 mg/dL (8.5-10.5); Carbon Dioxide 26 mmol/L (22-29); Chloride 105 mmol/L (98-107); Glomerular Filtration Rate 30.7 mL/min (90-130); Glucose 242 mg/dL (65-115); Osmolality Calculated 294 mOsm/kg (285-295); Potassium 4.4 mmol/L (3.5-5.1); Sodium 137 mmol/L (136-145)
[2020-06-03 08:49] LABS: Vancomycin Trough 16.2 ug/mL (10-15)
--- NOTE | 2020-06-03 08:55 | PC.NURSE ---
Timothy, pharmacist, notified of BUN 19, Creatinine 2.2 and Vanc trough 16.2. Will continue Vancomycin 750 mg for last dose tomorrow, 06/04/20 and pull PICC line after dose as ordered per Dr. Saucedo.
[2020-06-04] MEDS: vancomycin 750 MG in sodium chloride 0.9% 250 ML 250 MG IV (08:10)
[2020-06-04 08:25] VITALS: BP 143/76; PULSE 93; RESP 18; TEMP 36.4; O2SAT 99
--- NOTE | 2020-06-04 09:24 | PC.NURSE ---
0915 Last dose of Vancomycin 750 mg infused. PICC flushed per protocol and line dc'd as ordered. Catheter intact. Pt tolerated well.
== END 2020-07-01 23:59 | disposition home or self-care (01) ==
LOC: OPS 07:30
PROVIDERS: PCP Family Medicine; Visit Provider Thoracic Surgery (Cardiothoracic Vascular Surgery)
DX: M86.9 Osteomyelitis, unspecified (principal)
CPT/HCPCS: 36592; 80048; 80202; 96365; J3370; J7050

== ENCOUNTER 2020-07-27 07:18 | Outpatient (CLI) | payer MEDICARE, SELFPAY ==
[2020-07-27 07:55] LABS: Basophils # 0.1 10^3/uL (0.0-0.1); Eosinophils # 0.4 10^3/uL (0.0-0.8); Lymphocytes # 2.6 10^3/uL (0.8-4.8); Lymphocytes % 33.2 %; Mean Corpuscular Hemoglobin 26.4 pg (28.0-34.0); Mean Corpuscular Volume 85.4 fL (80-94); Mean Platelet Volume 10.9 fL (7.4-10.4); Monocytes # 0.8 10^3/uL (0.2-0.9); Monocytes % 10.3 %; Neutrophils # 3.89 10^3/uL (1.8-7.7); Neutrophils % 50.2 %; Nucleated Red Blood Cells % 0 %; Platelet Count 222 10^3/cmm (130-400); Red Blood Count 4.92 10^6/uL (4.1-5.3); Red Cell Distribution Width 13.6 % (12.1-15.1); White Blood Count 7.8 10^3/uL (4.0-10.0)
[2020-07-27 08:05] LABS: Alanine Aminotransferase 24 U/L (0-41); Albumin Level 4.1 g/dL (3.5-5.2); Alkaline Phosphatase 71 IU/L (40-130); Blood Urea Nitrogen 22 mg/dL (8-23); Calcium 8.5 mg/dL (8.5-10.5); Carbon Dioxide 24 mmol/L (22-29); Chloride 105 mmol/L (98-107); Chol HDL Ratio 4.28 mg/dL (1.0-5.00); Cholesterol 167 mg/dL (0-200); Globulin 2.9 g/dL (1.3-4.6); Glomerular Filtration Rate 38.7 mL/min (90-130); Glucose 165 mg/dL (65-115); HDL Cholesterol 39 mg/dL (60-100); LDL Cholesterol Calculated 72 mg/dL (50-129); LDL HDL Ratio 1.85 RATIO (0.00-3.22); Osmolality Calculated 293 mOsm/kg (285-295); Sodium 138 mmol/L (136-145); Total Bilirubin 0.4 mg/dL (0.15-1.2); Triglycerides 282 mg/dL (0-150)
[2020-07-27 08:14] LABS: Anion Gap 13.6 (5-19); Potassium 4.6 mmol/L (3.5-5.1)
[2020-07-27 08:15] LABS: Aspartate Amino Transferase 25 U/L (0-40)
[2020-07-27 08:36] LABS: Estmated Average Glucose 154
== END 2020-07-27 07:19 | disposition home or self-care (01) ==
LOC: LAB 07:21
PROVIDERS: PCP Family Medicine; Visit Provider Family Medicine
DX: E11.9 Type 2 diabetes mellitus without complications (principal)
CPT/HCPCS: 36415; 80053; 80061; 83036; 85025

== ENCOUNTER 2020-10-26 09:42 | Outpatient (CLI) | payer MEDICARE, SELFPAY ==
[2020-10-26 10:13] LABS: Basophils # 0.1 10^3/uL (0.0-0.1); Eosinophils # 0.3 10^3/uL (0.0-0.8); Eosinophils % 3.1 %; Hematocrit 41.7 % (42.0-52.0); Hemoglobin 13.7 g/dL (11.7-16.6); Lymphocytes # 2.2 10^3/uL (0.8-4.8); Lymphocytes % 27.8 %; Mean Corpuscular HGB Conc 32.9 g/dL (30.0-36.0); Mean Corpuscular Hemoglobin 27.4 pg (28.0-34.0); Mean Corpuscular Volume 83.4 fL (80-94); Mean Platelet Volume 10.8 fL (7.4-10.4); Monocytes # 0.7 10^3/uL (0.2-0.9); Monocytes % 9.3 %; Neutrophils # 4.63 10^3/uL (1.8-7.7); Neutrophils % 58.4 %; Nucleated Red Blood Cells % 0 %; Platelet Count 208 10^3/cmm (130-400); Red Cell Distribution Width 13.2 % (12.1-15.1); White Blood Count 7.9 10^3/uL (4.0-10.0)
[2020-10-26 10:34] LABS: Estmated Average Glucose 177; Hemoglobin A1C 7.8 % (4.0-6.0)
[2020-10-26 10:36] LABS: Alanine Aminotransferase 20 U/L (0-41); Albumin Level 4.4 g/dL (3.5-5.2); Alkaline Phosphatase 81 IU/L (40-130); Anion Gap 16.6 (5-19); Aspartate Amino Transferase 15 U/L (0-40); Blood Urea Nitrogen 30 mg/dL (8-23); Calcium 9.2 mg/dL (8.5-10.5); Carbon Dioxide 24 mmol/L (22-29); Chloride 100 mmol/L (98-107); Chol HDL Ratio 4.83 mg/dL (1.0-5.00); Cholesterol 174 mg/dL (0-200); Globulin 2.8 g/dL (1.3-4.6); Glomerular Filtration Rate 34.3 mL/min (90-130); Glucose 273 mg/dL (65-115); HDL Cholesterol 36 mg/dL (60-100); LDL Cholesterol Calculated 63 mg/dL (50-129); LDL HDL Ratio 1.75 RATIO (0.00-3.22); Osmolality Calculated 298 mOsm/kg (285-295); Potassium 4.6 mmol/L (3.5-5.1); Sodium 136 mmol/L (136-145); Total Bilirubin 0.5 mg/dL (0.15-1.2); Total Protein 7.2 g/dL (6.6-8.7); Triglycerides 374 mg/dL (0-150)
== END 2020-10-26 09:43 | disposition home or self-care (01) ==
LOC: LAB 09:49
PROVIDERS: PCP Family Medicine; Visit Provider Family Medicine
DX: N18.9 Chronic kidney disease, unspecified (principal)
CPT/HCPCS: 36415; 80053; 80061; 83036; 85025

== ENCOUNTER 2021-02-09 12:05 | Outpatient (CLI) | payer MEDICARE, SELFPAY ==
[2021-02-09 12:53] LABS: Basophils # 0.1 10^3/uL (0.0-0.1); Basophils % 0.8 %; Eosinophils # 0.3 10^3/uL (0.0-0.8); Eosinophils % 3.5 %; Hematocrit 43.4 % (42.0-52.0); Hemoglobin 13.7 g/dL (11.7-16.6); Lymphocytes # 2.3 10^3/uL (0.8-4.8); Lymphocytes % 23.8 %; Mean Corpuscular HGB Conc 31.6 g/dL (30.0-36.0); Mean Corpuscular Hemoglobin 27.1 pg (28.0-34.0); Mean Corpuscular Volume 85.9 fl (80-94); Mean Platelet Volume 11.3 fL (7.4-10.4); Monocytes # 0.7 10^3/uL (0.2-0.9); Monocytes % 7.4 %; Neutrophils # 6.05 10^3/uL (1.8-7.7); Neutrophils % 64.2 %; Nucleated Red Blood Cells % 0 %; Platelet Count 199 10^3/cmm (130-400); Red Blood Count 5.05 10^6/uL (4.1-5.3); White Blood Count 9.4 10^3/uL (4.0-10.0)
[2021-02-09 13:11] LABS: Creatinine Urine, Random 78 mg/dL (39-259); Microalbumin Random Urine 10 ug/dL (0-20)
[2021-02-09 13:14] LABS: Microalbum Creatinine Ratio Ur 128 mg/dL (0-20)
[2021-02-09 13:15] LABS: Albumin Level 3.8 g/dL (3.5-5.2); Anion Gap 17.3 (5-19); Blood Urea Nitrogen 23 mg/dL (8-23); Calcium 8.9 mg/dL (8.5-10.5); Carbon Dioxide 21 mmol/L (22-29); Chloride 97 mmol/L (98-107); Glomerular Filtration Rate 41.2 mL/min (90-130); Glucose 341 mg/dL (65-115); Phosphorus 1.7 mg/dL (2.5-4.5); Potassium 4.3 mmol/L (3.5-5.1); Sodium 131 mmol/L (136-145)
[2021-02-09 13:25] LABS: Calcium 8.9 mg/dL (8.5-10.5)
[2021-02-09 13:31] LABS: Parathyroid Hormone 69.4 pg/mL (15-65)
== END 2021-02-09 12:06 | disposition home or self-care (01) ==
PROVIDERS: PCP Family Medicine; Visit Provider Internal Medicine Nephrology
DX: N18.32 Chronic kidney disease, stage 3b (principal)
CPT/HCPCS: 36415; 80069; 82044; 82310; 83970; 85025

== ENCOUNTER 2021-04-09 08:00 | Outpatient (CLI) | payer MEDICARE, SELFPAY ==
[2021-04-09 09:00] LABS: Alanine Aminotransferase 24 U/L (0-41); Albumin Level 4.1 g/dL (3.5-5.2); Alkaline Phosphatase 128 IU/L (40-130); Anion Gap 19.1 (5-19); Aspartate Amino Transferase 18 U/L (0-40); Blood Urea Nitrogen 28 mg/dL (8-23); Calcium 9.2 mg/dL (8.5-10.5); Carbon Dioxide 22 mmol/L (22-29); Chloride 100 mmol/L (98-107); Chol HDL Ratio 6.77 mg/dL (1.0-5.00); Cholesterol 210 mg/dL (0-200); Globulin 2.6 g/dL (1.3-4.6); Glomerular Filtration Rate 51.5 mL/min (90-130); Glucose 330 mg/dL (65-115); HDL Cholesterol 31 mg/dL (60-100); Osmolality Calculated 300 mOsm/kg (285-295); Potassium 5.1 mmol/L (3.5-5.1); Sodium 136 mmol/L (136-145); Total Bilirubin 0.4 mg/dL (0.15-1.2); Total Protein 6.7 g/dL (6.6-8.7); Triglycerides 546 mg/dL (0-150)
[2021-04-09 09:46] LABS: Basophils # 0.1 10^3/uL (0.0-0.1); Basophils % 0.8 %; Eosinophils # 0.3 10^3/uL (0.0-0.8); Eosinophils % 3.1 %; Hematocrit 42.1 % (42.0-52.0); Hemoglobin 13.6 g/dL (11.7-16.6); Lymphocytes # 2.3 10^3/uL (0.8-4.8); Mean Corpuscular HGB Conc 32.3 g/dL (30.0-36.0); Mean Corpuscular Hemoglobin 27.5 pg (28.0-34.0); Mean Corpuscular Volume 85.2 fl (80-94); Mean Platelet Volume 11.2 fL (7.4-10.4); Monocytes # 0.8 10^3/uL (0.2-0.9); Monocytes % 9.4 %; Neutrophils # 5.39 10^3/uL (1.8-7.7); Neutrophils % 60.3 %; Nucleated Red Blood Cells % 0 %; Platelet Count 195 10^3/cmm (130-400); Red Blood Count 4.94 10^6/uL (4.1-5.3); Red Cell Distribution Width 13.2 % (12.1-15.1)
[2021-04-09 09:59] LABS: Estmated Average Glucose 266; Hemoglobin A1C 10.9 % (4.0-6.0); LDL Cholesterol Direct 106 mg/dL (0-100)
== END 2021-04-09 08:01 | disposition home or self-care (01) ==
PROVIDERS: PCP Family Medicine; Visit Provider Family Medicine
DX: E11.9 Type 2 diabetes mellitus without complications (principal); N18.9 Chronic kidney disease, unspecified
CPT/HCPCS: 80053; 80061; 83036; 83721; 85025

== ENCOUNTER 2021-11-09 16:10 | Outpatient (CLI) | payer MEDICARE, SELFPAY ==
[2021-11-09 16:29] LABS: Basophils # 0.1 10^3/uL (0.0-0.1); Basophils % 0.6 %; Eosinophils # 0.3 10^3/uL (0.0-0.8); Eosinophils % 2.4 %; Hematocrit 42.2 % (42.0-52.0); Hemoglobin 13.5 g/dL (11.7-16.6); Lymphocytes # 4.1 10^3/uL (0.8-4.8); Lymphocytes % 36.2 %; Mean Corpuscular Hemoglobin 27.1 pg (28.0-34.0); Mean Corpuscular Volume 84.6 fl (80-94); Mean Platelet Volume 10.3 fL (7.4-10.4); Monocytes # 1.2 10^3/uL (0.2-0.9); Monocytes % 10.7 %; Neutrophils # 5.63 10^3/uL (1.8-7.7); Neutrophils % 49.7 %; Nucleated Red Blood Cells % 0 %; Platelet Count 220 10^3/cmm (130-400); Red Blood Count 4.99 10^6/uL (4.1-5.3); Red Cell Distribution Width 14.6 % (12.1-15.1); White Blood Count 11.3 10^3/uL (4.0-10.0)
[2021-11-09 17:25] LABS: Alanine Aminotransferase 18 U/L (0-41); Alkaline Phosphatase 116 IU/L (40-130); Anion Gap 18.4 (5-19); Aspartate Amino Transferase 15 U/L (0-40); Blood Urea Nitrogen 37 mg/dL (8-23); Calcium 9.3 mg/dL (8.5-10.5); Carbon Dioxide 20 mmol/L (22-29); Chloride 110 mmol/L (98-107); Cholesterol 204 mg/dL (0-200); Globulin 2.9 g/dL (1.3-4.6); Glomerular Filtration Rate 22.2 mL/min (90-130); Glucose 62 mg/dL (65-115); HDL Cholesterol 30 mg/dL (60-100); Osmolality Calculated 303 mOsm/kg (285-295); Potassium 5.4 mmol/L (3.5-5.1); Prostate Specific Antigen Scr 0.68 ng/mL (0-4); Sodium 143 mmol/L (136-145); Thyroid Stimulating Hormone 2.43 uIU/mL (0.27-4.20); Total Bilirubin 0.3 mg/dL (0.15-1.2); Total Protein 6.9 g/dL (6.6-8.7); Triglycerides 471 mg/dL (0-150)
[2021-11-09 18:00] LABS: LDL Cholesterol Direct 122 mg/dL (0-100)
[2021-11-09 20:24] LABS: Estmated Average Glucose 186; Hemoglobin A1C 8.1 % (4.0-6.0)
== END 2021-11-09 16:11 | disposition home or self-care (01) ==
LOC: LAB 16:13
PROVIDERS: PCP Family Medicine; Visit Provider Family Medicine
DX: Z12.5 Encounter for screening for malignant neoplasm of prostate (principal); E11.9 Type 2 diabetes mellitus without complications; N18.9 Chronic kidney disease, unspecified
CPT/HCPCS: 36415; 80053; 80061; 83036; 83721; 84443; 85025; G0103

== ENCOUNTER 2022-02-09 16:07 | Outpatient (CLI) | payer MEDICARE, SELFPAY ==
[2022-02-09 16:47] LABS: Basophils # 0.1 10^3/uL (0.0-0.1); Basophils % 0.7 %; Eosinophils # 0.3 10^3/uL (0.0-0.8); Eosinophils % 2.4 %; Hematocrit 41.7 % (42.0-52.0); Hemoglobin 13.2 g/dL (11.7-16.6); Lymphocytes # 3.1 10^3/uL (0.8-4.8); Lymphocytes % 26.9 %; Mean Corpuscular HGB Conc 31.7 g/dL (30.0-36.0); Mean Corpuscular Hemoglobin 26.9 pg (28.0-34.0); Mean Corpuscular Volume 84.9 fl (80-94); Monocytes % 8.4 %; Neutrophils # 7.03 10^3/uL (1.8-7.7); Neutrophils % 61.2 %; Nucleated Red Blood Cells % 0 %; Platelet Count 213 10^3/cmm (130-400); Red Blood Count 4.91 10^6/uL (4.1-5.3); Red Cell Distribution Width 13.4 % (12.1-15.1); White Blood Count 11.5 10^3/uL (4.0-10.0)
[2022-02-09 17:21] LABS: Alanine Aminotransferase 14 U/L (0-41); Albumin Level 3.9 g/dL (3.5-5.2); Alkaline Phosphatase 147 U/L (40-130); Anion Gap 16.2 (5-19); Aspartate Amino Transferase 13 U/L (0-40); Blood Urea Nitrogen 33 mg/dL (8-23); Calcium 9.5 mg/dL (8.5-10.5); Carbon Dioxide 23 mmol/L (22-29); Chloride 102 mmol/L (98-107); Chol HDL Ratio 5.59 mg/dL (1.0-5.00); Cholesterol 179 mg/dL (0-200); Globulin 3.2 g/dL (1.3-4.6); Glucose 160 mg/dL (65-115); HDL Cholesterol 32 mg/dL (60-100); LDL Cholesterol Calculated 76 mg/dL (50-129); LDL HDL Ratio 2.38 RATIO (0.00-3.22); Osmolality Calculated 293 mOsm/kg (285-295); Potassium 5.2 mmol/L (3.5-5.1); Sodium 136 mmol/L (136-145); Total Bilirubin 0.3 mg/dL (0.15-1.2); Total Protein 7.1 g/dL (6.6-8.7); Triglycerides 357 mg/dL (0-150)
[2022-02-09 17:23] LABS: Calcium 9.4 mg/dL (8.5-10.5); Parathyroid Hormone 89.5 pg/mL (15-65)
[2022-02-09 17:35] LABS: Estmated Average Glucose 126
[2022-02-09 17:52] LABS: Creatinine Urine, Random 132 mg/dL (39-259); Microalbum Creatinine Ratio Ur 23 mg/dL (0-20); Microalbumin Random Urine 3 ug/dL (0-20)
== END 2022-02-09 16:08 | disposition home or self-care (01) ==
LOC: LAB 16:10
PROVIDERS: Absent Provider Family Medicine; PCP Family Medicine; Visit Provider Internal Medicine Nephrology
DX: I11.0 Hypertensive heart disease with heart failure (principal); N18.32 Chronic kidney disease, stage 3b; E11.9 Type 2 diabetes mellitus without complications; E78.5 Hyperlipidemia, unspecified
CPT/HCPCS: 36415; 80053; 80061; 82044; 82310; 83036; 83970; 85025

== ENCOUNTER 2022-05-18 16:00 | Outpatient (CLI) | payer MEDICARE, SELFPAY ==
[2022-05-18 16:54] LABS: Basophils # 0.1 10^3/uL (0.0-0.1); Basophils % 0.9 %; Eosinophils # 0.4 10^3/uL (0.0-0.8); Hematocrit 41.8 % (42.0-52.0); Lymphocytes # 3.2 10^3/uL (0.8-4.8); Lymphocytes % 34.4 %; Mean Corpuscular HGB Conc 31.1 g/dL (30.0-36.0); Mean Corpuscular Hemoglobin 26.6 pg (28.0-34.0); Mean Corpuscular Volume 85.7 fl (80-94); Mean Platelet Volume 10.8 fL (7.4-10.4); Monocytes # 0.9 10^3/uL (0.2-0.9); Monocytes % 9.3 %; Neutrophils # 4.73 10^3/uL (1.8-7.7); Neutrophils % 51.3 %; Nucleated Red Blood Cells % 0 %; Platelet Count 194 10^3/cmm (130-400); Red Blood Count 4.88 10^6/uL (4.1-5.3); Red Cell Distribution Width 13.9 % (12.1-15.1); White Blood Count 9.2 10^3/uL (4.0-10.0)
[2022-05-18 17:08] LABS: Estmated Average Glucose 154
[2022-05-18 17:12] LABS: Alanine Aminotransferase 11 U/L (0-41); Albumin Level 4.2 g/dL (3.5-5.2); Alkaline Phosphatase 170 U/L (40-130); Anion Gap 15.2 (5-19); Aspartate Amino Transferase 15 U/L (0-40); Blood Urea Nitrogen 28 mg/dL (8-23); Calcium 8.7 mg/dL (8.5-10.5); Carbon Dioxide 25 mmol/L (22-29); Chloride 103 mmol/L (98-107); Cholesterol 137 mg/dL (0-200); Globulin 2.6 g/dL (1.3-4.6); Glucose 72 mg/dL (65-115); HDL Cholesterol 37 mg/dL (60-100); LDL Cholesterol Calculated 55 mg/dL (50-129); LDL HDL Ratio 1.49 RATIO (0.00-3.22); Osmolality Calculated 290 mOsm/kg (285-295); Potassium 5.2 mmol/L (3.5-5.1); Sodium 138 mmol/L (136-145); Total Bilirubin 0.4 mg/dL (0.15-1.2); Total Protein 6.8 g/dL (6.6-8.7); Triglycerides 223 mg/dL (0-150)
== END 2022-05-18 16:01 | disposition home or self-care (01) ==
LOC: LAB 16:04
PROVIDERS: PCP Family Medicine; Referring Provider Registered Nurse; Visit Provider Family Medicine
DX: N18.32 Chronic kidney disease, stage 3b (principal); E11.9 Type 2 diabetes mellitus without complications; E78.5 Hyperlipidemia, unspecified; I10 Essential (primary) hypertension
CPT/HCPCS: 36415; 80053; 80061; 83036; 85025

== ENCOUNTER 2022-08-04 16:18 | Outpatient (CLI) | payer MEDICARE, SELFPAY ==
[2022-08-04 16:47] LABS: Basophils # 0.1 10^3/uL (0.0-0.1); Basophils % 0.9 %; Eosinophils # 0.3 10^3/uL (0.0-0.8); Eosinophils % 3.5 %; Hematocrit 41.9 % (42.0-52.0); Hemoglobin 13.1 g/dL (11.7-16.6); Lymphocytes # 2.8 10^3/uL (0.8-4.8); Lymphocytes % 29.8 %; Mean Corpuscular HGB Conc 31.3 g/dL (30.0-36.0); Mean Corpuscular Hemoglobin 26.3 pg (28.0-34.0); Mean Corpuscular Volume 84.1 fl (80-94); Mean Platelet Volume 10.9 fL (7.4-10.4); Monocytes # 0.8 10^3/uL (0.2-0.9); Monocytes % 8.1 %; Neutrophils % 57.4 %; Nucleated Red Blood Cells % 0 %; Platelet Count 188 10^3/cmm (130-400); Red Blood Count 4.98 10^6/uL (4.1-5.3); Red Cell Distribution Width 13.7 % (12.1-15.1); White Blood Count 9.2 10^3/uL (4.0-10.0)
[2022-08-04 16:58] LABS: Estmated Average Glucose 163; Hemoglobin A1C 7.3 % (4.0-6.0)
[2022-08-04 17:51] LABS: Alanine Aminotransferase 18 U/L (0-41); Albumin Level 4.1 g/dL (3.5-5.2); Alkaline Phosphatase 162 U/L (40-130); Anion Gap 17.1 (5-19); Aspartate Amino Transferase 14 U/L (0-40); Blood Urea Nitrogen 36 mg/dL (8-23); Calcium 8.4 mg/dL (8.5-10.5); Carbon Dioxide 21 mmol/L (22-29); Chloride 104 mmol/L (98-107); Chol HDL Ratio 4.22 mg/dL (1.0-5.00); Cholesterol 152 mg/dL (0-200); Globulin 2.7 g/dL (1.3-4.6); Glomerular Filtration Rate 38.4 mL/min (90-130); Glucose 156 mg/dL (65-115); HDL Cholesterol 36 mg/dL (60-100); LDL Cholesterol Calculated 53 mg/dL (50-129); LDL HDL Ratio 1.47 RATIO (0.00-3.22); Osmolality Calculated 296 mOsm/kg (285-295); Potassium 5.1 mmol/L (3.5-5.1); Sodium 137 mmol/L (136-145); Total Bilirubin 0.3 mg/dL (0.15-1.2); Total Protein 6.8 g/dL (6.6-8.7); Triglycerides 317 mg/dL (0-150)
== END 2022-08-04 16:19 | disposition home or self-care (01) ==
LOC: LAB 16:22
PROVIDERS: PCP Family Medicine; Visit Provider Family Medicine
DX: E11.9 Type 2 diabetes mellitus without complications (principal); E78.5 Hyperlipidemia, unspecified; I10 Essential (primary) hypertension
CPT/HCPCS: 36415; 80053; 80061; 83036; 85025

== ENCOUNTER 2022-08-16 16:12 | Outpatient (CLI) | payer MEDICARE, SELFPAY ==
[2022-08-16 16:45] LABS: Basophils # 0.1 10^3/uL (0.0-0.1); Basophils % 0.7 %; Eosinophils # 0.3 10^3/uL (0.0-0.8); Eosinophils % 3.7 %; Hemoglobin 12.6 g/dL (11.7-16.6); Lymphocytes # 2.6 10^3/uL (0.8-4.8); Lymphocytes % 29.4 %; Mean Corpuscular HGB Conc 31.5 g/dL (30.0-36.0); Mean Corpuscular Hemoglobin 26.5 pg (28.0-34.0); Mean Corpuscular Volume 84.2 fl (80-94); Mean Platelet Volume 10.1 fL (7.4-10.4); Monocytes # 0.8 10^3/uL (0.2-0.9); Monocytes % 8.8 %; Neutrophils # 5.05 10^3/uL (1.8-7.7); Neutrophils % 57.2 %; Nucleated Red Blood Cells % 0 %; Platelet Count 174 10^3/cmm (130-400); Red Blood Count 4.75 10^6/uL (4.1-5.3); Red Cell Distribution Width 13.7 % (12.1-15.1); White Blood Count 8.8 10^3/uL (4.0-10.0)
[2022-08-16 17:26] LABS: Calcium 8.2 mg/dL (8.5-10.5)
[2022-08-16 17:27] LABS: Blood Urea Nitrogen 32 mg/dL (8-23); Calcium 8.2 mg/dL (8.5-10.5); Carbon Dioxide 22 mmol/L (22-29); Chloride 101 mmol/L (98-107); Glucose 270 mg/dL (65-115); Phosphorus 4.3 mg/dL (2.5-4.5); Sodium 136 mmol/L (136-145)
[2022-08-16 17:34] LABS: Creatinine Urine, Random 111 mg/dL (39-259); Microalbum Creatinine Ratio Ur 99 mg/dL (0-20); Microalbumin Random Urine 11 ug/dL (0-20)
[2022-08-16 17:34] LABS: Parathyroid Hormone 142.6 pg/mL (15-65)
[2022-08-17 03:11] LABS: 25 Hydroxy Vitamin D 21 ng/mL (30-100)
== END 2022-08-16 16:13 | disposition home or self-care (01) ==
LOC: LAB 16:18
PROVIDERS: PCP Family Medicine; Visit Provider Internal Medicine Nephrology
DX: N18.32 Chronic kidney disease, stage 3b (principal); E55.9 Vitamin D deficiency, unspecified
CPT/HCPCS: 36415; 80069; 82044; 82306; 82310; 83970; 85025

== ENCOUNTER 2022-11-08 16:08 | Outpatient (CLI) | payer MEDICARE, SELFPAY ==
[2022-11-08 17:21] LABS: Basophils # 0.1 10^3/uL (0.0-0.1); Basophils % 1.1 %; Eosinophils # 0.3 10^3/uL (0.0-0.8); Hematocrit 40.2 % (42.0-52.0); Lymphocytes # 3.1 10^3/uL (0.8-4.8); Lymphocytes % 33.2 %; Mean Corpuscular HGB Conc 32.3 g/dL (30.0-36.0); Mean Corpuscular Hemoglobin 27.9 pg (28.0-34.0); Mean Corpuscular Volume 86.3 fl (80-94); Mean Platelet Volume 10.8 fL (7.4-10.4); Monocytes # 0.8 10^3/uL (0.2-0.9); Monocytes % 8.9 %; Neutrophils # 5.01 10^3/uL (1.8-7.7); Neutrophils % 53.5 %; Nucleated Red Blood Cells % 0 %; Platelet Count 200 10^3/cmm (130-400); Red Blood Count 4.66 10^6/uL (4.1-5.3); Red Cell Distribution Width 13.6 % (12.1-15.1); White Blood Count 9.4 10^3/uL (4.0-10.0)
[2022-11-08 17:26] LABS: Alanine Aminotransferase 12 U/L (0-41); Albumin Level 3.9 g/dL (3.5-5.2); Alkaline Phosphatase 144 U/L (40-130); Anion Gap 16.2 (5-19); Aspartate Amino Transferase 12 U/L (0-40); Blood Urea Nitrogen 21 mg/dL (8-23); Calcium 9.1 mg/dL (8.5-10.5); Carbon Dioxide 22 mmol/L (22-29); Chloride 103 mmol/L (98-107); Chol HDL Ratio 5.13 mg/dL (1.0-5.00); Cholesterol 159 mg/dL (0-200); Globulin 2.7 g/dL (1.3-4.6); Glucose 198 mg/dL (65-115); HDL Cholesterol 31 mg/dL (60-100); Osmolality Calculated 291 mOsm/kg (285-295); Potassium 5.2 mmol/L (3.5-5.1); Sodium 136 mmol/L (136-145); Total Bilirubin 0.3 mg/dL (0.15-1.2); Total Protein 6.6 g/dL (6.6-8.7); Triglycerides 484 mg/dL (0-150)
[2022-11-08 19:00] LABS: LDL Cholesterol Direct 75 mg/dL (0-100)
[2022-11-08 19:53] LABS: Estmated Average Glucose 166; Hemoglobin A1C 7.4 % (4.0-6.0)
== END 2022-11-08 16:09 | disposition home or self-care (01) ==
LOC: LAB 16:10
PROVIDERS: PCP Family Medicine; Visit Provider Family Medicine
DX: E11.9 Type 2 diabetes mellitus without complications (principal); E78.5 Hyperlipidemia, unspecified; I10 Essential (primary) hypertension; K21.9 Gastro-esophageal reflux disease without esophagitis; Z79.899 Other long term (current) drug therapy
CPT/HCPCS: 36415; 80053; 80061; 83036; 83721; 85025

== ENCOUNTER 2023-02-06 16:08 | Outpatient (CLI) | payer MEDICARE, SELFPAY ==
[2023-02-06 16:31] LABS: Basophils # 0.1 10^3/uL (0.0-0.1); Basophils % 1.2 %; Eosinophils # 0.3 10^3/uL (0.0-0.8); Eosinophils % 3.3 %; Hematocrit 42.2 % (37-53); Lymphocytes # 2.9 10^3/uL (0.8-4.8); Lymphocytes % 31.3 %; Mean Corpuscular HGB Conc 31.8 g/dL (30-55); Mean Corpuscular Hemoglobin 26.7 pg (27-33); Mean Corpuscular Volume 84.2 fl (82-101); Mean Platelet Volume 10.5 fL (7.4-10.4); Monocytes # 0.9 10^3/uL (0.2-0.9); Monocytes % 9.2 %; Neutrophils # 5.07 10^3/uL (1.8-7.7); Neutrophils % 54.7 %; Nucleated Red Blood Cells % 0 %; Platelet Count 205 10^3/cmm (157-399); Red Blood Count 5.01 10^6/uL (3.85-5.65); Red Cell Distribution Width 12.8 % (12.1-15.1); White Blood Count 9.27 10^3/uL (3.29-11.43)
[2023-02-06 17:07] LABS: Alanine Aminotransferase 9 U/L (0-41); Albumin Level 3.9 g/dL (3.5-5.2); Alkaline Phosphatase 129 U/L (40-130); Anion Gap 13.8 (5-19); Aspartate Amino Transferase 9 U/L (0-40); Blood Urea Nitrogen 27 mg/dL (8-23); Calcium 9.4 mg/dL (8.5-10.5); Carbon Dioxide 26 mmol/L (22-29); Chloride 102 mmol/L (98-107); Cholesterol 182 mg/dL (0-200); Globulin 2.7 g/dL (1.3-4.6); Glucose 248 mg/dL (65-115); HDL Cholesterol 35 mg/dL (60-100); LDL Cholesterol Calculated 76 mg/dL (50-129); LDL HDL Ratio 2.17 RATIO (0.00-3.22); Osmolality Calculated 297 mOsm/kg (285-295); Potassium 4.8 mmol/L (3.5-5.1); Sodium 137 mmol/L (136-145); Total Bilirubin 0.3 mg/dL (0.15-1.2); Total Protein 6.6 g/dL (6.6-8.7); Triglycerides 354 mg/dL (0-150)
[2023-02-06 17:11] LABS: Estmated Average Glucose 163; Hemoglobin A1C 7.3 % (4.0-6.0)
== END 2023-02-06 16:09 | disposition home or self-care (01) ==
PROVIDERS: PCP Family Medicine; Visit Provider Family Medicine
DX: E78.5 Hyperlipidemia, unspecified (principal); E11.9 Type 2 diabetes mellitus without complications; I10 Essential (primary) hypertension; Z12.5 Encounter for screening for malignant neoplasm of prostate
CPT/HCPCS: 36415; 80053; 80061; 83036; 85025

== ENCOUNTER 2023-02-22 16:13 | Outpatient (CLI) | payer MEDICARE, SELFPAY ==
[2023-02-22 16:44] LABS: Basophils # 0.1 10^3/uL (0.0-0.1); Basophils % 0.8 %; Eosinophils # 0.4 10^3/uL (0.0-0.8); Eosinophils % 4.1 %; Lymphocytes # 3.3 10^3/uL (0.8-4.8); Lymphocytes % 34.7 %; Mean Corpuscular HGB Conc 31.9 g/dL (30-55); Mean Corpuscular Hemoglobin 27.1 pg (27-33); Mean Corpuscular Volume 84.8 fl (82-101); Mean Platelet Volume 10.9 fL (7.4-10.4); Monocytes # 0.9 10^3/uL (0.2-0.9); Monocytes % 9.7 %; Neutrophils # 4.86 10^3/uL (1.8-7.7); Neutrophils % 50.5 %; Nucleated Red Blood Cells % 0 %; Platelet Count 202 10^3/cmm (157-399); Red Blood Count 4.95 10^6/uL (3.85-5.65); Red Cell Distribution Width 13.1 % (12.1-15.1); White Blood Count 9.61 10^3/uL (3.29-11.43)
[2023-02-22 17:22] LABS: Creatinine Urine, Random 90 mg/dL (39-259); Microalbumin Random Urine 13 ug/dL (0-20)
[2023-02-22 17:25] LABS: Microalbum Creatinine Ratio Ur 144 mg/dL (0-20)
[2023-02-22 17:36] LABS: Calcium 8.6 mg/dL (8.5-10.5); Parathyroid Hormone 159.7 pg/mL (15-65)
[2023-02-22 17:45] LABS: 25 Hydroxy Vitamin D 29 ng/mL (30-100)
== END 2023-02-22 16:14 | disposition home or self-care (01) ==
LOC: LAB 16:17
PROVIDERS: PCP Family Medicine; Visit Provider Internal Medicine Nephrology
DX: N18.32 Chronic kidney disease, stage 3b (principal)
CPT/HCPCS: 82044; 82306; 82310; 83970; 85025

== ENCOUNTER 2023-05-04 16:04 | Outpatient (CLI) | payer BC, SELFPAY ==
[2023-05-04 16:29] LABS: Basophils # 0.1 10^3/uL (0.0-0.1); Eosinophils # 0.4 10^3/uL (0.0-0.8); Eosinophils % 4.2 %; Hematocrit 39.6 % (37-53); Lymphocytes # 2.9 10^3/uL (0.8-4.8); Lymphocytes % 34.3 %; Mean Corpuscular HGB Conc 31.8 g/dL (30-55); Mean Corpuscular Hemoglobin 26.6 pg (27-33); Mean Corpuscular Volume 83.7 fl (82-101); Mean Platelet Volume 10.7 fL (7.4-10.4); Monocytes # 0.7 10^3/uL (0.2-0.9); Monocytes % 8.8 %; Neutrophils # 4.27 10^3/uL (1.8-7.7); Neutrophils % 51.5 %; Nucleated Red Blood Cells % 0 %; Platelet Count 236 10^3/cmm (157-399); Red Blood Count 4.73 10^6/uL (3.85-5.65); Red Cell Distribution Width 13.5 % (12.1-15.1)
[2023-05-04 17:07] LABS: Alanine Aminotransferase 17 U/L (0-41); Albumin Level 3.9 g/dL (3.5-5.2); Alkaline Phosphatase 175 U/L (40-130); Anion Gap 14.1 (5-19); Aspartate Amino Transferase 16 U/L (0-40); Blood Urea Nitrogen 27 mg/dL (8-23); Calcium 8.8 mg/dL (8.5-10.5); Carbon Dioxide 26 mmol/L (22-29); Chloride 102 mmol/L (98-107); Chol HDL Ratio 4.35 mg/dL (1.0-5.00); Cholesterol 148 mg/dL (0-200); Globulin 3.2 g/dL (1.3-4.6); Glomerular Filtration Rate 43.9 mL/min (90-130); Glucose 139 mg/dL (65-115); HDL Cholesterol 34 mg/dL (60-100); LDL Cholesterol Calculated 61 mg/dL (50-129); LDL HDL Ratio 1.79 RATIO (0.00-3.22); Osmolality Calculated 291 mOsm/kg (285-295); Potassium 5.1 mmol/L (3.5-5.1); Prostate Specific Antigen Scr 0.81 ng/mL (0-4); Sodium 137 mmol/L (136-145); Total Bilirubin 0.4 mg/dL (0.15-1.2); Total Protein 7.1 g/dL (6.6-8.7); Triglycerides 267 mg/dL (0-150)
[2023-05-04 17:34] LABS: Estmated Average Glucose 186; Hemoglobin A1C 8.1 % (4.0-6.0)
[2023-05-04 21:39] LABS: Thyroid Stimulating Hormone 1.75 uIU/mL (0.27-4.20)
== END 2023-05-04 16:05 | disposition home or self-care (01) ==
LOC: LAB 16:10
PROVIDERS: PCP Family Medicine; Visit Provider Family Medicine
DX: I10 Essential (primary) hypertension (principal); E78.5 Hyperlipidemia, unspecified; E11.9 Type 2 diabetes mellitus without complications
CPT/HCPCS: 36415; 80053; 80061; 83036; 84443; 85025; G0103

== ENCOUNTER 2023-08-02 16:03 | Outpatient (CLI) | payer BC, SELFPAY ==
[2023-08-02 16:52] LABS: Basophils # 0.1 10^3/uL (0.0-0.1); Basophils % 0.8 %; Eosinophils # 0.3 10^3/uL (0.0-0.8); Eosinophils % 3.3 %; Hematocrit 40.1 % (37-53); Lymphocytes # 2.6 10^3/uL (0.8-4.8); Mean Corpuscular HGB Conc 31.4 g/dL (30-55); Mean Corpuscular Hemoglobin 26.4 pg (27-33); Mean Corpuscular Volume 83.9 fl (82-101); Mean Platelet Volume 11.2 fL (7.4-10.4); Monocytes # 0.8 10^3/uL (0.2-0.9); Neutrophils # 4.92 10^3/uL (1.8-7.7); Neutrophils % 56.7 %; Nucleated Red Blood Cells % 0 %; Platelet Count 180 10^3/cmm (157-399); Red Blood Count 4.78 10^6/uL (3.85-5.65); Red Cell Distribution Width 13.5 % (12.1-15.1); White Blood Count 8.69 10^3/uL (3.29-11.43)
[2023-08-02 17:11] LABS: Estmated Average Glucose 154
[2023-08-02 17:31] LABS: Alanine Aminotransferase 15 U/L (0-41); Alkaline Phosphatase 144 U/L (40-130); Anion Gap 14.5 (5-19); Aspartate Amino Transferase 11 U/L (0-40); Blood Urea Nitrogen 26 mg/dL (8-23); Calcium 8.9 mg/dL (8.5-10.5); Carbon Dioxide 24 mmol/L (22-29); Chloride 105 mmol/L (98-107); Chol HDL Ratio 3.61 mg/dL (1.0-5.00); Cholesterol 130 mg/dL (0-200); Globulin 2.9 g/dL (1.3-4.6); Glomerular Filtration Rate 40.9 mL/min (90-130); Glucose 168 mg/dL (65-115); HDL Cholesterol 36 mg/dL (60-100); LDL Cholesterol Calculated 39 mg/dL (50-129); LDL HDL Ratio 1.08 RATIO (0.00-3.22); Osmolality Calculated 297 mOsm/kg (285-295); Potassium 4.5 mmol/L (3.5-5.1); Sodium 139 mmol/L (136-145); Total Bilirubin 0.4 mg/dL (0.15-1.2); Total Protein 6.9 g/dL (6.6-8.7); Triglycerides 276 mg/dL (0-150)
[2023-08-02 19:09] LABS: 25 Hydroxy Vitamin D 37 ng/mL (30-100)
== END 2023-08-02 16:04 | disposition home or self-care (01) ==
LOC: LAB 16:05
PROVIDERS: PCP Family Medicine; Visit Provider Family Medicine
DX: E11.9 Type 2 diabetes mellitus without complications (principal)
CPT/HCPCS: 36415; 80053; 80061; 82306; 83036; 85025

== ENCOUNTER 2023-08-16 09:41 | Outpatient (CLI) | payer BC, SELFPAY ==
--- NOTE | 2023-08-16 09:47 | XRR_ITS ---
PROCEDURE INFORMATION: Exam: XR Right Foot Exam date and time: 08/16/2023 9:56 AM Age: 63 years old Clinical indication: Condition or disease; Other: Type 2 diabetes mellitus with foot ulcer; Prior surgery; Surgery date: 6+ months; Surgery type: Right foot; Additional info: E11.621 - type 2 diabetes mellitus with foot ulcer TECHNIQUE: Imaging protocol: Radiologic exam of the right foot. Views: 3 or more views. COMPARISON: MR foot RT wo con* [id number] 03/03/2021 10:38 FINDINGS: Bones/joints: There is normal alignment of the right foot. No fracture is identified. Stable chronic degenerative changes at the 3rd MTP joint space. Small bone spur at the plantar surface of the calcaneus. Soft tissues: Normal. No gas in the soft tissues XR/XR foot RT min 3V* [id number] IMPRESSION: 1. Stable chronic degenerative changes of the 3rd MTP joint space. 2. No visible gas in the soft tissues
== END 2023-08-16 09:42 | disposition home or self-care (01) ==
LOC: RAD 09:42
PROVIDERS: PCP Family Medicine; Visit Provider Thoracic Surgery (Cardiothoracic Vascular Surgery)
DX: E11.621 Type 2 diabetes mellitus with foot ulcer (principal); L97.509 Non-pressure chronic ulcer of other part of unspecified foot with unspecified severity; M19.071 Primary osteoarthritis, right ankle and foot
CPT/HCPCS: 73630

== ENCOUNTER 2023-09-15 11:23 | Outpatient (CLI) | payer BC, SELFPAY ==
[2023-09-15 11:57] LABS: Basophils # 0.1 10^3/uL (0.0-0.1); Basophils % 1.1 %; Eosinophils # 0.4 10^3/uL (0.0-0.8); Eosinophils % 4.7 %; Lymphocytes # 2.8 10^3/uL (0.8-4.8); Lymphocytes % 29.5 %; Mean Corpuscular HGB Conc 31.8 g/dL (30-55); Mean Corpuscular Hemoglobin 26.5 pg (27-33); Mean Corpuscular Volume 83.2 fl (82-101); Mean Platelet Volume 10.2 fL (7.4-10.4); Monocytes # 0.7 10^3/uL (0.2-0.9); Monocytes % 6.9 %; Neutrophils # 5.39 10^3/uL (1.8-7.7); Neutrophils % 57.3 %; Nucleated Red Blood Cells % 0 %; Platelet Count 198 10^3/cmm (157-399); Red Blood Count 5.29 10^6/uL (3.85-5.65); Red Cell Distribution Width 13.7 % (12.1-15.1)
[2023-09-15 12:15] LABS: Calcium 8.9 mg/dL (8.5-10.5)
[2023-09-15 12:15] LABS: Creatinine Urine, Random 85 mg/dL (39-259)
[2023-09-15 12:16] LABS: Albumin Level 3.7 g/dL (3.5-5.2); Anion Gap 14.5 (5-19); Blood Urea Nitrogen 15 mg/dL (8-23); Calcium 8.8 mg/dL (8.5-10.5); Carbon Dioxide 23 mmol/L (22-29); Chloride 101 mmol/L (98-107); Glomerular Filtration Rate 51.2 mL/min (90-130); Glucose 280 mg/dL (65-115); Phosphorus 2.3 mg/dL (2.5-4.5); Potassium 4.5 mmol/L (3.5-5.1); Sodium 134 mmol/L (136-145)
[2023-09-15 12:22] LABS: Parathyroid Hormone 64.5 pg/mL (15-65)
[2023-09-15 12:27] LABS: Microalbum Creatinine Ratio Ur 459 mg/dL (0-20); Microalbumin Random Urine 39 ug/dL (0-20)
== END 2023-09-15 11:24 | disposition home or self-care (01) ==
LOC: LAB 11:25
PROVIDERS: PCP Family Medicine; Visit Provider Family Medicine
DX: N18.32 Chronic kidney disease, stage 3b (principal)
CPT/HCPCS: 80069; 82044; 82310; 83970; 85025

== ENCOUNTER 2023-10-06 10:04 | Emergency (ER) | payer MEDICARE, SELFPAY ==
[2023-10-06] VITALS (9 sets, daily range): BP systolic 115–150; BP diastolic 71–88; PULSE 83–99; RESP 14–21; TEMP 36.7; O2SAT 93–99
--- NOTE | 2023-10-06 10:04 | ECG_ITS ---
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 Measurements Intervals [place] Rate: 91 P: 51 HI: 153 QRS: -6 QRSD: 87 T: 49 QT: 325 QTc: 401 Interpretive Statements SINUS RHYTHM WITH OCCASIONAL SUPRAVENTRICULAR PREMATURE COMPLEXES Compared to ECG 04/23/2020 14:26:37 Sinus tachycardia no longer present Electronically Signed On 10-06-2023 18:42:19 CDT by Praneeth Spain M.D. [id number]
[2023-10-06] MEDS: sodium chloride 0.9% 1,000 ML 999 ML IV (10:36)
[2023-10-06 10:45] LABS: Basophils # 0.1 10^3/uL (0.0-0.1); Basophils % 1.1 %; Eosinophils # 0.5 10^3/uL (0.0-0.8); Eosinophils % 5.6 %; Hematocrit 43.8 % (37-53); Lymphocytes # 2.4 10^3/uL (0.8-4.8); Lymphocytes % 27.6 %; Mean Corpuscular Hemoglobin 26.5 pg (27-33); Mean Platelet Volume 10.2 fL (7.4-10.4); Monocytes # 0.8 10^3/uL (0.2-0.9); Monocytes % 9.3 %; Neutrophils % 55.8 %; Nucleated Red Blood Cells % 0 %; Platelet Count 187 10^3/cmm (157-399); Red Blood Count 5.28 10^6/uL (3.85-5.65); Red Cell Distribution Width 13.5 % (12.1-15.1); White Blood Count 8.79 10^3/uL (3.29-11.43)
[2023-10-06 11:10] LABS: Alanine Aminotransferase 11 U/L (0-41); Albumin Level 3.6 g/dL (3.5-5.2); Alkaline Phosphatase 125 U/L (40-130); Aspartate Amino Transferase 14 U/L (0-40); Blood Urea Nitrogen 22 mg/dL (8-23); Calcium 8.7 mg/dL (8.5-10.5); Carbon Dioxide 24 mmol/L (22-29); Chloride 97 mmol/L (98-107); Globulin 2.5 g/dL (1.3-4.6); Glomerular Filtration Rate 43.9 mL/min (90-130); Glucose 138 mg/dL (65-115); Magnesium 2.1 mg/dL (1.7-2.3); Osmolality Calculated 282 mOsm/kg (285-295); Sodium 133 mmol/L (136-145); Total Bilirubin 0.4 mg/dL (0.15-1.2); Total Protein 6.1 g/dL (6.6-8.7)
[2023-10-06 11:11] LABS: Troponin(5th) Baseline 16 ng/L (0-15)
--- NOTE | 2023-10-06 11:21 | W.ED.GENADLT ---
HPI - General Adult General: Chief complaint: General Medical Stated complaint: afib Time Seen by Provider: 10/06/23 10:13 History of Present Illness: This patient is a 63 year old presenting with concerns for an abnormal EKG. He was seen at his PCP office today and they did an EKG. They were concerned about his high heart rate and possible atrial fibrillation and sent him here via ambulance. He also notes that he was told at his last wound care visit that his heart rate was high. That was the reason for his PCP visit today. He reports feeling fine. He has a wound on his right leg due to stepping on a severiano thorn. He is diabetic with neuropathy. He is in a walking boot and reports that he has been much less active than usual due to wound. He says he is improving and almost finished with his treatment. No fevers, no chest pain, no shortness of breath. No change in medication. He feels silly for being here. [facility] ED PFSH: Medical History CKD stage 3 due to type 2 diabetes mellitus -baseline Cr seems to be around 1.7-2.0; CKD stage 3b History of MRSA infection History of renal carcinoma Hypertension -continue oral antihypertensives GERD (gastroesophageal reflux disease) -continue PPI Diabetes -complicated by retinopathy and neuropathy Hyperlipidemia -continue statin, fenofibrate Surgical History History of nephrectomy (~08/2008) -secondary to RCC Family History Father Chronic kidney disease (CKD) father from ESRD Mother Liver disease Social History Smoking and tobacco/nicotine status: never used tobacco/nicotine Alcohol intake: never Substance/Drug Use: never Marital status: Current gender identity: Male Physical Exam Const: COMMON NORMALS: no acute distress, patient oriented x3, no limitations and alert GENERAL APPEARANCE: cooperative and comfortable HENMT: HEAD & SCALP: normal to inspection FACE & SINUS: normal facial exam Eye: GENERAL EYE: appearance normal, both eyes and all related structures Neck/C-Spine: COMMON NORMALS: supple, no meningeal signs and no JVD Chest: COMMONS NORMALS: normal inspection of the chest Resp: COMMON NORMALS: normal respiratory effort, No use of accessory muscles and clear to auscultation bilaterally AUSCULTATION: clear to auscultation bilaterally Cardio: COMMON NORMALS: no JVD, regular rate, regular rhythm and No murmurs present (Cardio) RATE: regular rate RHYTHM: regular rhythm and other (occasional skipped beats, borderline tachycardic) GI: COMMON NORMALS: Normal to inspection, nondistended, normoactive bowel sounds present, Soft to palpation and non-tender INSPECTION: Yes normal to inspection AUSCULTATION: Yes normoactive bowel sounds PALPATION: Yes Soft to palpation Back/Pelvis: COMMON NORMALS: thoracic and lumbar spine normal to inspection Extremity: COMMON NORMALS: normal to inspection NARRATIVE EXTREMITY EXAM: right lower leg in a walking boot with wound care dressings. No calf swelling or tenderness. Normal skin color and temperature on the exposed areas. Neuro: COMMON NORMALS: patient oriented x3, moves all extremities, no focal motor deficits and no sensory deficits noted SENSORIUM/ORIENTATION: Yes alert MENINGEAL SIGNS: Yes no meningeal signs Psych: COMMON NORMALS: mental status grossly normal, cooperative and normal affect Skin: COMMON NORMALS: no rashes or lesions noted and turgor normal GENERAL SKIN EXAM: no rashes or lesions noted and turgor normal Course Vital Signs: Vital signs: Vital Signs Temperature 98.1 F 10/06/23 10:13 Pulse Rate 94 10/06/23 13:30 Respiratory Rate 19 H 10/06/23 13:30 Blood Pressure 135/80 10/06/23 13:30 Pulse Oximetry 95 10/06/23 13:30 Oxygen Delivery Me thod Room Air 10/06/23 11:01 [facility] - General Adult Medical Decision Making Patient sent from PCP due to concerns for atrial fibrillation. Reviewed prior EKGs and EKG, monitor strips here. I did not see any afib, but there is some irregularity due to what are supraventricular premature contractions. Vitals are good. Troponins and d dimer negative. He was given a dose of metoprolol at the PCP office prior to coming over - and that seems to be helping his mild tachycardia. I prescribed him metoprolol and ordered an outpatient reinsurance analyst and cardiology follow up. Discussed return precautions as well. Lab Data 10/06/23 10:38 10/06/23 10:38 Laboratory Results WBC 8.79 10^3/uL (3.29-11.43) 10/06/23 10:38 RBC 5.28 10^6/uL (3.85-5.65) 10/06/23 10:38 Hgb 14.00 g/dL (11.27-16.99) 10/06/23 10:38 Hct 43.8 % (37-53) 10/06/23 10:38 MCV 83.0 fl (82-101) 10/06/23 10:38 MCH 26.5 pg (27-33) L 10/06/23 10:38 MCHC 32.0 g/dL (30-55) 10/06/23 10:38 RDW 13.5 % (12.1-15.1) 10/06/23 10:38 Plt Count 187 10^3/cmm (157-399) 10/06/23 10:38 MPV 10.2 fL (7.4-10.4) 10/06/23 10:38 Neut % (Auto) 55.8 % 10/06/23 10:38 Lymph % (Auto) 27.6 % 10/06/23 10:38 Spencer % (Auto) 9.3 % 10/06/23 10:38 Eos % (Auto) 5.6 % 10/06/23 10:38 Baso % (Auto) 1.1 % 10/06/23 10:38 Neut # (Auto) 4.90 10^3/uL (1.8-7.7) 10/06/23 10:38 Lymph # (Auto) 2.4 10^3/uL (0.8-4.8) 10/06/23 10:38 Spencer # (Auto) 0.8 10^3/uL (0.2-0.9) 10/06/23 10:38 Eos # (Auto) 0.5 10^3/uL (0.0-0.8) 10/06/23 10:38 Baso # (Auto) 0.1 10^3/uL (0.0-0.1) 10/06/23 10:38 Nucleated RBC % (auto) 0 % 10/06/23 10:38 Nucleated RBCs # 0.0 /100WBC 10/06/23 10:38 D-Dimer 0.32 ug/mLFEU (0-0.59) 10/06/23 10:38 Sodium 133 mmol/L (136-145) L 10/06/23 10:38 Potassium 4.2 mmol/L (3.5-5.1) 10/06/23 10:38 Chloride 97 mmol/L (98-107) L 10/06/23 10:38 Carbon Dioxide 24 mmol/L (22-29) 10/06/23 10:38 Anion Gap 16.2 (5-19) 10/06/23 10:38 BUN 22 mg/dL (8-23) 10/06/23 10:38 Creatinine 1.6 mg/dL (0.7-1.2) H 10/06/23 10:38 GFR Calculation 43.9 mL/min (90-130) L 10/06/23 10:38 Glucose 138 mg/dL (65-115) H 10/06/23 10:38 Calculated Osmolality 282 mOsm/kg (285-295) L 10/06/23 10:38 Calcium 8.7 mg/dL (8.5-10.5) 10/06/23 10:38 Magnesium 2.1 mg/dL (1.7-2.3) 10/06/23 10:38 Total Bilirubin 0.4 mg/dL (0.15-1.2) 10/06/23 10:38 AST 14 U/L (0-40) 10/06/23 10:38 ALT 11 U/L (0-41) 10/06/23 10:38 Alkaline Phosphatase 125 U/L (40-130) 10/06/23 10:38 Troponin T Baseline 16 ng/L (0-15) H 10/06/23 10:38 Troponin T 120 Minute 14.20 ng/L (0-15) 10/06/23 12:35 Delta Troponin T -1.80 ABS# (0-10) L 10/06/23 12:35 Total Protein 6.1 g/dL (6.6-8.7) L 10/06/23 10:38 Albumin 3.6 g/dL (3.5-5.2) 10/06/23 10:38 Globulin 2.5 g/dL (1.3-4.6) 10/06/23 10:38 XR interpretation done by ED provider, pending radiology final review Discharge Plan Discharge Patient Disposition: Home Clinical Impression: Premature contractions, supraventricular Condition: Stable Prescriptions: New metoprolol succinate 25 mg tablet extended release 24 hr 25 mg PO DAILY Qty: 30 0RF No Action (DME) diabetic shoes with inserts See Rx Instructions .Route .MEDSUPPLY Qty: 1 0RF Rx Instructions: callus formation and neuropathy as well as ulcer on right great toe . Centrum Silver Men 300-600-300 mcg tablet 1 tab PO DAILY@08 (DME) blood-glucose meter [Blood Glucose Monitoring] Kit See Rx Instructions .ROUTE .MEDSUPPLY Qty: 1 0RF Rx Instructions: testing three times daily (DME) Blood Glucose Test Strip See Rx Instructions .ROUTE .MEDSUPPLY Qty: 100 2RF Rx Instructions: testing three times daily (DME) Dexcom G6 Mechanotherapist Misc See Rx Instructions .Route Qty: 1 0RF Rx Instructions: As directed (DME) Dexcom G6 Sensor Device See Rx Instructions .Route Qty: 3 2RF Rx Instructions: As directed (DME) Dexcom G6 Transmitter Device See Rx Instructions .Route Qty: 1 2RF Rx Instructions: As directed lisinopril 10 mg tablet See Rx Instructions .ROUTE .COMPLEX Qty: 90 1RF Dose Instruction: TAKE 1 TABLET BY MOUTH EVERY DAY AT 8AM Rx Instructions: TAKE 1 TABLET BY MOUTH EVERY OTHER DAY atorvastatin 80 mg tablet 80 mg PO QPM omeprazole 20 mg capsule,delayed release(DR/EC) 20 mg PO QAM Humalog KwikPen Insulin 100 unit/mL insulin pen 35 unit SUBCUT TID Levemir FlexPen 100 unit/mL (3 mL) insulin pen 80 unit SUBCUT BID Victoza 3-Eliseo 0.6 mg/0.1 mL (18 mg/3 mL) pen injector 1.8 mg SUBCUT DAILY Farxiga 10 mg tablet 10 mg PO DAILY Discharge Orders: Discharge ED (Routine); Ordered 10/06/23 Ordered By: Malena Lovell Referrals: Praneeth Spain M.D [Physician] - 2 weeks Soheila Castro MD [Primary Care Provider] - Discharge Diet: Advance as tolerated Discharge Activity: Resume usual activity Patient Instructions: Opioid Safety, Pain Management Activity Restrictions/Additional Instructions: Discuss need for further evaluation with your primary care doctor. Take the metoprolol once daily as prescribed. Expect a call to set up an appointment for an ambulatory reinsurance analyst to be placed. Coding Level of Care Code ED Atg Java Developer for Maria D Robbins
[2023-10-06 11:25] LABS: Anion Gap 16.2 (5-19); Potassium 4.2 mmol/L (3.5-5.1)
[2023-10-06 11:26] LABS: D Dimer 0.32 ug/mLFEU (0-0.59)
--- NOTE | 2023-10-06 12:24 | ECG_ITS ---
[facility] Test Date: 2023-10-06 Pat Name: Fredi Mccarthy Department: Room: Gender: Male Fruit Sprayer: : 1960 Requested By: Malena Guadarrama Order Number: [id number] Barbara MD: Praneeth Spain M.D. Measurements Intervals [place] Rate: 81 P: 52 LA: 165 QRS: 4 QRSD: 89 T: 52 QT: 346 QTc: 404 Interpretive Statements SINUS RHYTHM WITH OCCASIONAL SUPRAVENTRICULAR PREMATURE COMPLEXES Compared to ECG 10/06/2023 10:04:59 No significant changes Electronically Signed On 10-06-2023 18:49:11 CDT by Praneeth Spain M.D. [id number]
--- NOTE | 2023-10-09 09:13 | DCPLANNER ---
Message sent to Cardiology for follow up - 72 hr holter monitor.
== END 2023-10-06 13:50 | disposition home or self-care (01) ==
PROVIDERS: Emergency Provider Emergency Medicine; PCP Family Medicine
DX: I49.1 Atrial premature depolarization (principal); R00.0 Tachycardia, unspecified; I12.9 Hypertensive chronic kidney disease with stage 1 through stage 4 chronic kidney disease, or unspecified chronic kidney disease; N18.30 Chronic kidney disease, stage 3 unspecified; E11.22 Type 2 diabetes mellitus with diabetic chronic kidney disease; E11.40 Type 2 diabetes mellitus with diabetic neuropathy, unspecified; I48.91 Unspecified atrial fibrillation; E78.5 Hyperlipidemia, unspecified; Z79.4 Long term (current) use of insulin; Z79.85 Long-term (current) use of injectable non-insulin antidiabetic drugs; Z86.14 Personal history of Methicillin resistant Staphylococcus aureus infection
CPT/HCPCS: 36415; 80053; 83735; 84484; 85025; 85378; 93005; 99284; J7030

== ENCOUNTER → 2023-10-10 09:10 | Outpatient (BNVA) | payer MEDICARE, SELFPAY | PROVIDERS: PCP Family Medicine; Visit Provider Nurse Practitioner Family | DX: L97.411 Non-pressure chronic ulcer of right heel and midfoot limited to breakdown of skin (principal) | CPT/HCPCS: 97597 ==

== ENCOUNTER → 2023-10-23 09:10 | Outpatient (BNVA) | payer MEDICARE, SELFPAY | PROVIDERS: PCP Family Medicine; Referring Provider Emergency Medicine; Visit Provider Internal Medicine | DX: I10 Essential (primary) hypertension (principal); I47.10 Supraventricular tachycardia, unspecified; I49.1 Atrial premature depolarization; I49.3 Ventricular premature depolarization | CPT/HCPCS: 93242 ==

== ENCOUNTER → 2023-10-24 09:09 | Outpatient (BNVA) | payer MEDICARE, SELFPAY | PROVIDERS: PCP Family Medicine; Visit Provider Nurse Practitioner Family | DX: Z09 Encounter for follow-up examination after completed treatment for conditions other than malignant neoplasm (principal); Z87.2 Personal history of diseases of the skin and subcutaneous tissue | CPT/HCPCS: A6213 ==

== ENCOUNTER → 2023-10-31 08:53 | Outpatient (BNVA) | payer MEDICARE, SELFPAY | PROVIDERS: PCP Family Medicine; Visit Provider Thoracic Surgery (Cardiothoracic Vascular Surgery) | DX: Z09 Encounter for follow-up examination after completed treatment for conditions other than malignant neoplasm (principal); Z87.2 Personal history of diseases of the skin and subcutaneous tissue | CPT/HCPCS: 99212 ==

== ENCOUNTER → 2023-11-09 13:52 | Outpatient (BNVA) | payer MEDICARE, SELFPAY | PROVIDERS: PCP Family Medicine; Referring Provider Emergency Medicine; Visit Provider Internal Medicine | DX: I10 Essential (primary) hypertension (principal); E78.5 Hyperlipidemia, unspecified; R00.0 Tachycardia, unspecified | CPT/HCPCS: 99204 ==

== ENCOUNTER 2023-12-05 08:30 | Outpatient (CLI) | payer MEDICARE, SELFPAY ==
--- NOTE | 2023-12-05 08:30 | USCV_ITS ---
Fredi Mccarthy Age: 63 Gender: M : 1960 Exam Date: 12/05/2023 08:44 Ordering Phys: Praneeth Spain M.D ([email or web address]) Technologist: [place] [facility] [place] sob cp BP: 130 / 73 HR: 85 Rhythm: Sinus Technical Quality: MEASUREMENTS (Male / Female) Normal Values 2D ECHO LV Diastolic Diameter PLAX 4.7 cm 4.2 - 5.9 / 3.9 - 5.3 cm IVS Diastolic Thickness 1.1 cm 0.6 - 1.0 / 0.6 - 0.9 cm IVS Systolic Thickness 1.6 cm LVPW Diastolic Thickness 1.1 cm 0.6 - 1.0 / 0.6 - 0.9 cm LVPW Systolic Thickness 1.3 cm LVOT Diameter 2.3 cm LV Ejection Fraction 2D Teich 52.6 % LV Ejection Fraction MOD 4C 66.9 % LV Ejection Fraction MOD 2C 66.9 % LV Ejection Fraction 2C AL 66.4 % LA Diameter 4.1 cm RA Systolic Volume 4C AL 48.0 ml RA Systolic Volume 4C MOD 44.6 ml Aorta at Sinotubular Diameter 3.3 cm M-MODE LA Ao Ratio MM 1.0 AV Cusp Separation MM 2.6 cm DOPPLER AV Peak Velocity 98.0 cm/s LVOT Peak Velocity 80.0 cm/s AV Area Cont Eq vti 4.0 cm squared AV Area Cont Eq pk 3.5 cm squared MV Peak Velocity 88.0 cm/s MV Area PHT 4.6 cm squared Mitral E to A Ratio 1.0 TR Peak Velocity 130.0 cm/s TR Peak Gradient 6.8 mmHg TV Peak E Velocity 75.0 cm/s Right Atrial Pressure 3.0 mmHg Pulmonary Artery Systolic Pressu 9.8 mmHg PV Peak Velocity 75.0 cm/s FINDINGS Left Ventricle Left ventricle is normal in size. LV systolic function is normal with EF of 55 to 60%. No regional wall motion abnormalities are seen. Right Ventricle The right ventricle is normal in size and function. Right Atrium The right atrium is normal in size. Left Atrium The left atrium is normal in size. Mitral Valve Structurally normal mitral valve. Mild mitral regurgitation. Aortic Valve Structurally normal aortic valve. No significant stenosis or regurgitation. Tricuspid Valve Trace tricuspid regurgitation. Insufficient TR jet to evaluate RVSP. Pulmonic Valve Not well visualized Pericardium Normal pericardium without effusion. Aorta Normal ascending aorta dimension. IVC Not well visualized. CONCLUSIONS LV systolic function is normal with EF of 55-60% Mild mitral regurgitation Trace tricuspid regurgitation No comparison studies are available. Praneeth Spain MD (Electronically Signed) Final Date: 06 December 2023 09:19 S
== END 2023-12-05 08:31 | disposition home or self-care (01) ==
LOC: RAD 08:33
PROVIDERS: PCP Family Medicine; Visit Provider Internal Medicine
DX: R07.9 Chest pain, unspecified (principal); R06.02 Shortness of breath
CPT/HCPCS: 93306

== ENCOUNTER 2023-12-28 16:41 | Outpatient (CLI) | payer MEDICARE, SELFPAY ==
[2023-12-28 17:16] LABS: Basophils # 0.1 10^3/uL (0.0-0.1); Basophils % 0.8 %; Eosinophils # 0.3 10^3/uL (0.0-0.8); Eosinophils % 3.2 %; Hematocrit 38.7 % (37-53); Lymphocytes # 3.2 10^3/uL (0.8-4.8); Lymphocytes % 33.2 %; Mean Corpuscular HGB Conc 33.3 g/dL (30-55); Mean Corpuscular Hemoglobin 27.7 pg (27-33); Mean Corpuscular Volume 83.2 fl (82-101); Mean Platelet Volume 9.8 fL (7.4-10.4); Monocytes # 0.9 10^3/uL (0.2-0.9); Monocytes % 8.9 %; Neutrophils # 5.22 10^3/uL (1.8-7.7); Neutrophils % 53.6 %; Nucleated Red Blood Cells % 0 %; Platelet Count 204 10^3/cmm (157-399); Red Blood Count 4.65 10^6/uL (3.85-5.65); Red Cell Distribution Width 14.3 % (12.1-15.1); White Blood Count 9.75 10^3/uL (3.29-11.43)
[2023-12-28 17:41] LABS: Anion Gap 16.4 (5-19); Blood Urea Nitrogen 28 mg/dL (8-23); Calcium 8.5 mg/dL (8.5-10.5); Carbon Dioxide 23 mmol/L (22-29); Chloride 104 mmol/L (98-107); Glucose 58 mg/dL (65-115); Phosphorus 4.1 mg/dL (2.5-4.5); Potassium 4.4 mmol/L (3.5-5.1); Sodium 139 mmol/L (136-145)
[2023-12-28 17:42] LABS: Calcium 8.6 mg/dL (8.5-10.5)
[2023-12-28 17:44] LABS: Creatinine Urine, Random 118 mg/dL (39-259); Microalbumin Random Urine 10 ug/dL (0-20)
[2023-12-28 17:45] LABS: Microalbum Creatinine Ratio Ur 85 mg/dL (0-20)
[2023-12-28 17:47] LABS: Parathyroid Hormone 132.5 pg/mL (15-65)
== END 2023-12-28 16:42 | disposition home or self-care (01) ==
LOC: LAB 16:42
PROVIDERS: PCP Family Medicine; Visit Provider Registered Nurse
DX: N18.32 Chronic kidney disease, stage 3b (principal)
CPT/HCPCS: 36415; 80069; 82044; 82310; 83970; 85025

== ENCOUNTER 2024-02-23 16:02 | Outpatient (CLI) | payer MEDICARE, SELFPAY ==
[2024-02-23 16:39] LABS: Basophils # 0.1 10^3/uL (0.0-0.1); Basophils % 0.9 %; Eosinophils # 0.3 10^3/uL (0.0-0.8); Eosinophils % 4.6 %; Hematocrit 40.9 % (37-53); Lymphocytes # 1.9 10^3/uL (0.8-4.8); Mean Corpuscular HGB Conc 31.5 g/dL (30-55); Mean Corpuscular Hemoglobin 26.9 pg (27-33); Mean Corpuscular Volume 85.4 fl (82-101); Mean Platelet Volume 10.9 fL (7.4-10.4); Monocytes # 0.8 10^3/uL (0.2-0.9); Monocytes % 10.7 %; Neutrophils % 57.5 %; Nucleated Red Blood Cells % 0 %; Platelet Count 193 10^3/cmm (157-399); Red Blood Count 4.79 10^6/uL (3.85-5.65); Red Cell Distribution Width 13.5 % (12.1-15.1); White Blood Count 7.47 10^3/uL (3.29-11.43)
[2024-02-23 17:07] LABS: Estmated Average Glucose 148; Hemoglobin A1C 6.8 % (4.0-6.0)
[2024-02-23 17:24] LABS: Alanine Aminotransferase 10 U/L (0-41); Albumin Level 3.9 g/dL (3.5-5.2); Alkaline Phosphatase 115 U/L (40-130); Anion Gap 14.7 (5-19); Aspartate Amino Transferase 11 U/L (0-40); Blood Urea Nitrogen 25 mg/dL (8-23); Calcium 8.9 mg/dL (8.5-10.5); Carbon Dioxide 25 mmol/L (22-29); Chloride 106 mmol/L (98-107); Chol HDL Ratio 5.44 mg/dL (1.0-5.00); Cholesterol 174 mg/dL (0-200); Globulin 2.8 g/dL (1.3-4.6); Glomerular Filtration Rate 43.7 mL/min (90-130); Glucose 157 mg/dL (65-115); HDL Cholesterol 32 mg/dL (60-100); Osmolality Calculated 300 mOsm/kg (285-295); Potassium 4.7 mmol/L (3.5-5.1); Sodium 141 mmol/L (136-145); Total Bilirubin 0.3 mg/dL (0.15-1.2); Total Protein 6.7 g/dL (6.6-8.7); Triglycerides 419 mg/dL (0-150)
[2024-02-23 17:46] LABS: LDL Cholesterol Direct 104 mg/dL (0-100)
== END 2024-02-23 16:03 | disposition home or self-care (01) ==
LOC: LAB 16:03
PROVIDERS: PCP Nurse Practitioner Family; Visit Provider Nurse Practitioner Family
DX: E08.10 Diabetes mellitus due to underlying condition with ketoacidosis without coma (principal); R53.1 Weakness
CPT/HCPCS: 80053; 80061; 83036; 83721; 84443; 85025

== ENCOUNTER → 2024-04-09 09:00 | Outpatient (BNVA) | payer MEDICARE, SELFPAY | PROVIDERS: PCP Nurse Practitioner Family; Visit Provider Internal Medicine | DX: E78.5 Hyperlipidemia, unspecified (principal); I10 Essential (primary) hypertension; R00.0 Tachycardia, unspecified | CPT/HCPCS: 99214 ==

== ENCOUNTER 2024-06-12 16:21 | Outpatient (CLI) | payer MEDICARE, SELFPAY ==
[2024-06-12 17:07] LABS: Basophils # 0.1 10^3/uL (0.0-0.1); Basophils % 0.6 %; Eosinophils # 0.3 10^3/uL (0.0-0.8); Eosinophils % 4.2 %; Hematocrit 40.3 % (37-53); Lymphocytes # 2.4 10^3/uL (0.8-4.8); Lymphocytes % 30.2 %; Mean Corpuscular HGB Conc 32.5 g/dL (30-55); Mean Corpuscular Hemoglobin 27.2 pg (27-33); Mean Corpuscular Volume 83.8 fl (82-101); Mean Platelet Volume 10.7 fL (7.4-10.4); Monocytes # 0.7 10^3/uL (0.2-0.9); Monocytes % 8.3 %; Neutrophils # 4.53 10^3/uL (1.8-7.7); Neutrophils % 56.3 %; Nucleated Red Blood Cells % 0 %; Platelet Count 193 10^3/cmm (157-399); Red Blood Count 4.81 10^6/uL (3.85-5.65); Red Cell Distribution Width 13.6 % (12.1-15.1); White Blood Count 8.05 10^3/uL (3.29-11.43)
[2024-06-12 17:26] LABS: Creatinine Urine, Random 79 mg/dL (39-259); Microalbum Creatinine Ratio Ur 342 mg/dL (0-20); Microalbumin Random Urine 27 ug/dL (0-20)
[2024-06-12 17:50] LABS: Calcium 8.7 mg/dL (8.5-10.5); Parathyroid Hormone 119.7 pg/mL (15-65)
[2024-06-12 17:58] LABS: 25 Hydroxy Vitamin D 21 ng/mL (30-100); Anion Gap 12.4 (5-19); Blood Urea Nitrogen 26 mg/dL (8-23); Calcium 8.7 mg/dL (8.5-10.5); Carbon Dioxide 24 mmol/L (22-29); Chloride 104 mmol/L (98-107); Glomerular Filtration Rate 40.8 mL/min (90-130); Glucose 228 mg/dL (65-115); Phosphorus 3.2 mg/dL (2.5-4.5); Potassium 4.4 mmol/L (3.5-5.1); Sodium 136 mmol/L (136-145)
== END 2024-06-12 16:22 | disposition home or self-care (01) ==
PROVIDERS: PCP Nurse Practitioner Family; Visit Provider Registered Nurse
DX: N18.32 Chronic kidney disease, stage 3b (principal); E55.9 Vitamin D deficiency, unspecified
CPT/HCPCS: 36415; 80069; 82044; 82306; 82310; 83970; 85025

== ENCOUNTER → 2024-07-08 16:22 | Outpatient (BNVA) | payer MEDICARE, SELFPAY | PROVIDERS: PCP Nurse Practitioner Family; Visit Provider Family Medicine | DX: E11.9 Type 2 diabetes mellitus without complications (principal); E78.5 Hyperlipidemia, unspecified | CPT/HCPCS: 80061; 83036; 83721 ==

== ENCOUNTER 2024-12-16 09:36 | Outpatient (CLI) | payer MEDICARE, SELFPAY ==
[2024-12-16 11:21] LABS: Alanine Aminotransferase 27 U/L (0-41); Albumin Level 4.0 g/dL (3.5-5.2); Alkaline Phosphatase 139 U/L (40-130); Anion Gap 18.2 (5-19); Aspartate Amino Transferase 21 U/L (0-40); Blood Urea Nitrogen 24 mg/dL (8-23); Calcium 8.9 mg/dL (8.5-10.5); Carbon Dioxide 23 mmol/L (22-29); Chloride 103 mmol/L (98-107); Cholesterol 199 mg/dL (0-200); Globulin 3.3 g/dL (1.3-4.6); Glucose 292 mg/dL (65-115); HDL Cholesterol 37 mg/dL (60-100); Osmolality Calculated 303 mOsm/kg (285-295); Potassium 5.2 mmol/L (3.5-5.1); Sodium 139 mmol/L (136-145); Total Protein 7.3 g/dL (6.6-8.7); Triglycerides 488 mg/dL (0-150)
== END 2024-12-16 09:37 | disposition home or self-care (01) ==
LOC: LAB 09:38
PROVIDERS: PCP Family Medicine; Visit Provider Registered Nurse
DX: I10 Essential (primary) hypertension (principal); E78.5 Hyperlipidemia, unspecified; E11.9 Type 2 diabetes mellitus without complications; E11.8 Type 2 diabetes mellitus with unspecified complications
CPT/HCPCS: 36415; 80053; 80061; 83036; 83721